=== PATIENT | male | born 1955 | race African-American/Black ===

== ENCOUNTER 2016-10-06 09:48 | Outpatient (CLI) | payer BC, MEDICAID | END 2016-10-06 09:49 | disposition home or self-care (01) | DX: E66.9 Obesity, unspecified (principal); I10 Essential (primary) hypertension ==

== ENCOUNTER 2019-07-01 22:53 | Inpatient (IN) | payer MEDICAID ==
--- NOTE | 2019-07-01 23:13 | ED Physician Documentation ---
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 HPI is from neighbor, as patient has significant expressive aphasia and thus cannot contribute to HPI/ROS. Neighbor says that 30-40 minutes ago, patient knocked on her door and it was obvious that he was having great difficulty verbalizing; his words were mostly gibberish, and he was unable to complete any coherent sentences. Neighbor does not know his medical history, does not know if he takes any medications. She says that patient is normally awake, alert, oriented, conversant, and friendly. She says that the last time she saw him was Sunday (2 days ago, at which time he was at baseline). Unfortunately, there is no one else at the time of ED presentation who can give more information regarding last known "normal". Review of Systems Unable to obtain: Other (severe expressive aphasia) PD PAST MEDICAL HISTORY - Past Medical History Other Past Medical History: unknown - Past Surgical History Other past surgical history: unknown - Allergies Allergies/Adverse Reactions: Allergies Allergy/AdvReac Type Severity Reaction Status Date / Time No Known Drug Allergies Allergy Verified 07/02/19 01:43 - Living Situation Living Arrangement: reports: At home PD ED PE NORMAL - Vitals Vital signs reviewed: Yes - General General: No acute distress, Well developed/nourished - HEENT HEENT: PERRL, EOMI - Neck Neck: Supple, no meningeal sign - Cardiac Cardiac: No murmur - Respiratory Respiratory: No respiratory distress, Clear bilaterally - Abdomen Abdomen: Soft, Non distended - Derm Derm: Normal color, Warm and dry - Extremities Extremities: No edema - Neuro Neuro: No motor deficit Eye Opening: Spontaneous Motor: Obeys Commands Verbal: Incomprehensible GCS Score: 12 PD ED PE EXPANDED - General General: Alert, No acute distress, Well developed/nourished - Cardiac Cardiac: Irregularly irregular - Neuro Neuro: Aphasia (expressive aphasia; patient able to give occasional simple one- word answers, but mostly appears to be struggling to get words out. ) Results - Vitals Vitals: Vital Signs - 24 hr 07/01/19 07/01/19 07/01/19 23:05 23:31 23:41 Heart Rate 107 H 88 119 H Respiratory 18 18 24 Rate Blood Pressure 181/84 H 178/82 H 181/84 H O2 Saturation 100 16 L 100 07/02/19 07/02/19 00:00 00:30 Heart Rate 104 H 110 H Respiratory 24 22 Rate Blood Pressure O2 Saturation 99 100 Oxygen O2 Source Room air - EKG (time done) No standard instances Rate: Rate (enter#) (111), Tachy Rhythm: Atrial fibrillation Cooks: Normal Ischemia: Normal ST segments - Labs Labs: Laboratory Tests 07/01/19 07/01/19 07/01/19 23:08 23:35 23:35 WBC 11.6 H RBC 4.84 Hgb 11.0 L Hct 35.7 L MCV 73.8 L MCH 22.7 L MCHC 30.8 L RDW 17.4 H Plt Count 302 MPV 9.8 Neut # (Auto) 8.8 H Lymph # (Auto) 1.9 [place] # (Auto) 0.7 Eos # (Auto) 0.1 Baso # (Auto) 0.1 Absolute Nucleated RBC 0.00 Nucleated RBC % 0.0 PT 12.4 INR 1.1 APTT 33.1 Sodium 134 L Potassium 3.6 Chloride 105 Carbon Dioxide 19 L Anion Gap 10.0 BUN 15 Creatinine 1.0 Estimated GFR (MDRD) 92 Glucose 102 H Calcium 8.6 Total Bilirubin 0.5 AST 23 ALT 14 Alkaline Phosphatase 48 Total Protein 7.6 Albumin 3.9 Globulin 3.7 Albumin/Globulin Ratio 1.1 Lipase 34 - Rads (name of study) CT head Radiology: Prelim report reviewed, See rad report CTA head Radiology: Prelim report reviewed, See rad report CTA neck Radiology: Prelim report reviewed, See rad report PD MEDICAL DECISION MAKING - ED course Complexity details: reviewed results, re-evaluated patient, considered differential, d/w patient ED course: NAD. He seems to be understanding questions asked, and he follows commands quickly and appropriately. He repeatedly becomes frustrated in trying to speak intelligibly. Unfortunately, he is unable to communicate time of symptom onset, and only resource in this regard in the ED is neighbor who last saw him 2 days ago. ED RN tried to contact relative listed on patient's records as point of contact, but was unable to get a hold of this person. Departure - Departure Disposition: [facility] DC/Xfer Clinical Impression: Cerebrovascular accident (CVA) Qualifiers: CVA mechanism: unspecified Qualified Code(s): I63.9 - Cerebral infarction, unspecified Condition: Stable Discharge Date/Time: 07/02/19 01:33
[2019-07-01 23:29] LABS: BASOPHILS # (AUTO) 0.1 10^3/uL (0.0-0.1); BASOPHILS % (AUTO) 0.4 %; EOSINOPHILS # (AUTO) 0.1 10^3/uL (0.0-0.7); EOSINOPHILS % (AUTO) 0.8 %; LYMPHOCYTES # (AUTO) 1.9 10^3/uL (1.5-3.5); LYMPHOCYTES % (AUTO) 16.5 %; MEAN CORPUSCULAR HEMOGLOBIN 22.7 pg (27.0-31.0); MEAN CORPUSCULAR HGB CONC 30.8 g/dL (32.0-36.0); MEAN CORPUSCULAR VOLUME 73.8 fL (80.0-94.0); MEAN PLATELET VOLUME 9.8 fL (7.4-11.4); MONOCYTES # (AUTO) 0.7 10^3/uL (0.0-1.0); MONOCYTES % (AUTO) 5.6 %; NEUTROPHILS # (AUTO) 8.8 10^3/uL (1.5-6.6); NEUTROPHILS % (AUTO) 76.2 %; PLT - PLATELET COUNT 302 10^3/uL (130-450); RED BLOOD COUNT 4.84 10^6/uL (4.70-6.10); RED CELL DISTRIBUTION WIDTH 17.4 % (12.0-15.0); WHITE BLOOD COUNT 11.6 x10^3/uL (4.8-10.8)
--- NOTE | 2019-07-01 23:33 | CT Report ---
Reason: Neuro deficit, acute, stroke suspected Procedure Date: 07/01/2019 Accession Number: [id number] / [id number] Procedure: CT - Head W/O Stroke Protocol CPT Code: Final Report FULL RESULT: EXAM: CT HEAD WITHOUT CONTRAST EXAM DATE: 07/01/2019 11:22 PM CLINICAL HISTORY: Expressive aphasia. COMPARISON: None. TECHNIQUE: Multiaxial CT images were obtained from the foramen magnum to the vertex. Reformats: Sagittal and coronal. IV contrast: None. In accordance with CT protocol optimization, one or more of the following dose reduction techniques were utilized for this exam: automated exposure control, adjustment of mA and/or KV based on patient size, or use of iterative reconstructive technique. FINDINGS: Parenchyma: No intraparenchymal hemorrhage. No evidence of mass, midline shift, or CT findings of acute infarction. Asher-white differentiation is distinct. Mild diffuse chronic microangiopathic white matter changes are evident. Extraaxial Spaces: Normal for age. No subdural or epidural collections identified. Ventricles: The ventricles and cortical sulci are mildly enlarged, consistent with age-related tissue loss. Sinuses and Orbits: Imaged paranasal sinuses, orbits, and mastoids show no significant abnormality. Bones: No evidence of fracture or calvarial defect. Other: Mild intracranial atherosclerosis is present. IMPRESSION: 1. No acute intracranial process. 2. ASPECTS score is 10 on the right and 10 on the left. RADIA The critical test notification system was initiated by Dr. Charla Link at 11:30 PM on 07/01/2019. The above critical test findings were discussed with Dr. Stafford by Dr. Charla Link at 11:34 PM on 07/01/2019.
[2019-07-01 23:45] LABS: INR 1.1 (0.8-1.2); PT - PROTHROMBIN TIME 12.4 secs (9.9-12.6)
--- NOTE | 2019-07-01 23:49 | XRAY Report ---
Reason: chest pain Procedure Date: 07/01/2019 Accession Number: [id number] / [id number] Procedure: XR - Chest 1 View X-Ray CPT Code: 34546 Final Report FULL RESULT: EXAM: CHEST RADIOGRAPHY EXAM DATE: 07/01/2019 11:39 PM. CLINICAL HISTORY: Chest pain. COMPARISON: None. TECHNIQUE: 1 view. FINDINGS: Lungs/Pleura: Elevated left hemidiaphragm. No infiltrates. No pleural effusions or pneumothorax. Mediastinum: Mild cardiomegaly. No significant pulmonary vascular congestion. Osseous structures: No significant focal osseous lesions. IMPRESSION: 1. No acute cardiopulmonary process identified radiographically. 2. Mild cardiomegaly. RADIA
[2019-07-01 23:52] LABS: ALBUMIN 3.9 g/dL (3.2-5.5); ALBUMIN/GLOBULIN RATIO 1.1 (1.0-2.2); BILIRUBIN,TOTAL 0.5 mg/dL (0.2-1.0); CALCIUM 8.6 mg/dL (8.5-10.3); TOTAL PROTEIN 7.6 g/dL (6.7-8.2)
[2019-07-01 23:54] LABS: PARTIAL THROMBOPLASTIN TIME 33.1 secs (24.9-33.3)
[2019-07-02] MEDS ORDERED: SODIUM CHLORIDE FLUSH 0.9% 10 ML SYRINGE IVP PRN (00:47)
[2019-07-02] MEDS ORDERED: IOVERSOL 320 100 ML VIAL IVP ONE ×2 (00:49→01:35)
[2019-07-02] MEDS ORDERED: SODIUM CHLORIDE 0.9% 1,000 ML IV SCH ×2 (01:00→09:59)
--- NOTE | 2019-07-02 01:04 | HISTORY & PHYSICAL EXAMINATION ---
Chief Complaint - Chief Complaint Chief Complaint: encephalopathy, expressive aphasia History of Present Illness - Admitted From Admitted From:: [facility] - History Obtained From Records Reviewed: yes History obtained from: patient and ED physician Exam Limitations: expressive aphasia - History of Present Illness HPI Comment/Other: Patient is a 63 y/o male who was driven to the ED by his neighbor after he knocked on her door. He knocked on her door because he was experiencing numbness in his fingers. It is reported that the neighbor noticed that he was confused or not his usual self. In the ED he has significant expressive aphasia. He fully understand the questions asked but has difficulty finding the words. The words do not come out right when spoken. He is somewhat frustrated by this. His neighbor reports last seeing him normal 2 days ago. However he reports he was normal at 4:30pm when he finished work. There was a co-worker with him who cannot be contacted at this time. 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 He tries to express that he is otherwise healthy. He ran a 0.5K marathon. He denies chest pain, dyspnea, abdominal pain, nausea or vomiting. His only neurological deficit is expressive aphasia. As a result of his persistent symptoms, he is being admitted for further work up. History - Past Medical History Other Past Medical History: Patient denies any medical history or taking any medication - Past Surgical History Other past surgical history: He denies any surgical history - Family & Social History Family History Comment/Other: The details of this could not be obtained because of his expressive aphasia. Social History Notes: He does not smoke drink or use illicit drugs - POLST Patient has POLST: No POLST Status: Full Code Meds/Allgy - Allergies Allergies/Adverse Reactions: Allergies Allergy/AdvReac Type Severity Reaction Status Date / Time No Known Drug Allergies Allergy Verified 07/02/19 01:43 Review of Systems - Constitutional Constitutional: denies: Fatigue, Fever - Eyes Eyes: denies: Pain, Blurred vision, Vision loss, Dipolpia - Ears, Nose & Throat Ears, Nose & Throat: denies: Tinnitus, Vertigo - Cardiovascular Cariovascular: reports: Irregular heart rate. denies: Chest pain, Lightheadedness, Syncope - Respiratory Respiratory: denies: Sputum production, Wheezing, SOB at rest, SOB with exertion - Gastrointestinal Gastrointestinal: denies: Abdominal pain, Abdominal distention, Constipation, Diarrhea, Nausea, Vomiting, Reflux/heartburn - Genitourinary Genitourinary: denies: Dysuria, Frequency, Urgency, Hematuria, Incontinence, Flank pain, Nocturia - Musculoskeletal Musculoskeletal: denies: Muscle pain, Back pain, Muscle aches, Stiffness, Limited range of motion, Muscle weakness, Gout, Joint pain - Integumentary Integumentary: denies: Rash, Pruritis, Lesions, Dryness - Neurological Neurological: reports: Other (Expressive aphasia). denies: General weakness, Focal weakness, Headache, Dizziness - Psychiatric Psychiatric: denies: Depression, Anxiety - Endocrine Endocrine: denies: Polyuria, Polydypsia - Hematologic/Lymphatic Hematologic/Lymphatic: denies: Anemia, Bruising, Petechiae Prior Level of Functionality: He is independent of activities of daily living Exam - Vital Signs Vital Signs: Vital Signs x48h Pulse Resp BP Pulse Ox 07/01/19 23:31 88 18 178/82 H 16 L 07/01/19 23:05 107 H 18 181/84 H 100 - Physical Exam General Appearance: positive: Alert. negative: No acute distress Eyes Bilateral: positive: Normal inspection, PERRL, EOMI ENT: positive: ENT inspection nml, No signs of dehydration Neck: positive: Nml inspection, No JVD, Trachea midline Respiratory: positive: Chest non-tender, No respiratory distress, Breath sounds nml. negative: Wheezes, Rales, Rhonchi Cardiovascular: positive: Regular rate & rhythm, Irregularly irregular Abdomen: positive: Non-tender, No organomegaly, Nml bowel sounds, No distention. negative: Guarding, Rebound Skin: positive: Color nml, No rash, Warm, Dry Extremities: positive: Non-tender, Full ROM, Nml appearance, No pedal edema Neurologic/Psychiatric: positive: Oriented x3, Motor nml, Mood/affect nml, Other (Expressive Aphasia). negative: Facial droop Conclusion/Plan - Problem List (1) Cerebrovascular accident (CVA) Conclusion/Plan: Expressive aphasia persist CT head without contrast was negative MRI brain w/o contrast ordered, 2D echo ordered Lipid panel, HgA1c, Neuro checks qshift Atorvastatin, aspirin initiated Qualifiers: CVA mechanism: unspecified Qualified Code(s): I63.9 - Cerebral infarction, unspecified (2) Atrial fibrillation Conclusion/Plan: Unclear if chronic or paroxysmal or new onset Patient does not take any medication Could be potential cause of CVA Will use a beta emily for rate control if needed Will start eliquis with the next 24 hours On telemetry (3) Hypertension Conclusion/Plan: Not on any home medication Metoprolol ordered prn Will start Toprolol XL in the AM - Lab Results Fish Bones: 07/02/19 06:10 07/02/19 06:10 Core Measures - Anticipated LOS I expect patient to be DC'd or transferred within 96 hours.: Yes - DVT/VTE - Prophylaxis VTE/DVT Device ordered at admit?: Yes VTE/DVT Prophylaxis med ordered at admit?: Yes
[2019-07-02] MEDS: SODIUM CHLORIDE FLUSH 0.9% 10 ML SYRINGE IVP SCH ×3 (02:01→16:45)
--- NOTE | 2019-07-02 02:09 | CT Report ---
Reason: focal neurologic deficits Procedure Date: 07/02/2019 Accession Number: [id number] / [id number] Procedure: CT - ANGIO NECK W CPT Code: Final Report FULL RESULT: EXAM: CT ANGIOGRAM HEAD AND NECK. CT SCAN HEAD WITHOUT AND WITH CONTRAST. EXAM DATE: 07/02/2019 01:37 AM. CLINICAL HISTORY: Focal neuro deficits. Expressive aphasia COMPARISON: NECK ANGIO 07/02/2019 1:18 AM HEAD W/O STROKE PROTOCOL 07/01/2019 11:22 PM. TECHNIQUE: Routine axial helical CTA imaging was performed from the aortic arch through the [place] of [place]. Routine axial CT imaging of the head was performed prior to and following contrast administration. Reconstructions: Routine multiplanar 3D MIP reconstructions. IV contrast: OPTIRAY 320, 80 mL. NASCET Criteria are used for stenosis measurements. In accordance with CT protocol optimization, one or more of the following dose reduction techniques were utilized for this exam: automated exposure control, adjustment of mA and/or KV based on patient size, or use of iterative reconstructive technique. FINDINGS: CT SCAN HEAD: Parenchyma: No intraparenchymal hemorrhage. No evidence of mass, midline shift, or CT findings of acute infarction. Asher-white differentiation is distinct. Mild periventricular hypodensity is noted, nonspecific but most likely due to chronic microvascular ischemia. There is no pathologic enhancement. Extra-axial Spaces: Normal for age. No subdural or epidural collections identified. Ventricles: Normal in size and position. Sinuses and Orbits: Imaged paranasal sinuses, orbits, and mastoids show no significant abnormality. Bones: No evidence of fracture or calvarial defect. CT ANGIOGRAM EXTRACRANIAL CIRCULATION: The visualized arch is unremarkable. Great vessels are patent and unremarkable. Right Carotid: The common carotid, internal carotid, and external carotid arteries are widely patent. Minimal atherosclerotic plaque is visualized at the carotid bifurcation and proximal ICA. There is no hemodynamically significant carotid artery stenosis by NASCET criteria. There is no evidence of dissection. Left Carotid: The common carotid, internal carotid, and external carotid arteries are widely patent. Minimal atherosclerotic plaque is visualized at the carotid bifurcation and proximal ICA. There is no hemodynamically significant carotid artery stenosis by NASCET criteria. There is no evidence of dissection. Vertebrals: The proximal right vertebral artery is not adequately visualized due to streak artifact from dense contrast in adjacent veins. The imaged extracranial portions appear patent without evidence of significant stenosis or dissection. The left vertebral artery is slightly dominant and appears widely patent. CT ANGIOGRAM INTRACRANIAL CIRCULATION: Vascular calcification is visualized in the cavernous segments of the bilateral ICAs. The internal carotid, vertebral and basilar arteries are widely patent. The anterior, middle and posterior cerebral arteries are normal in caliber. There is no high grade stenosis, thrombosis or aneurysm in the intracranial vasculature. The dural venous sinuses are patent. Other: The visualized bones, soft tissues, and lung apices are unremarkable. IMPRESSION: CT SCAN HEAD: 1. No significant interval change. No evidence of acute infarct or hemorrhage. 2. No pathologic enhancement. 3. Mild white matter changes typical of chronic microvascular ischemia. CT ANGIOGRAM NECK: 1. No evidence of hemodynamically significant carotid or vertebral artery stenosis. Of note, the proximal right vertebral artery is not adequately visualized due to streak artifact from dense contrast in adjacent veins. Mild atherosclerotic change noted at the carotid bifurcations. 2. No evidence of carotid or vertebral artery dissection. CT ANGIOGRAM HEAD: 1. No evidence of central large vessel occlusion. 2. No high-grade stenosis, aneurysm or dissection in the intracranial vasculature. RADIA
[2019-07-02] MEDS ORDERED: ASPIRIN 325 MG TABLET PO STA (02:23)
[2019-07-02] MEDS ORDERED: METOPROLOL 5 MG/5 ML VIAL IVP PRN (02:27)
[2019-07-02] MEDS: ATORVASTATIN 40 MG TABLET PO SCH ×2 (02:45→20:51)
[2019-07-02 06:18] LABS: BASOPHILS % (AUTO) 0.4 %; EOSINOPHILS # (AUTO) 0.1 10^3/uL (0.0-0.7); EOSINOPHILS % (AUTO) 1.5 %; HGB - HEMOGLOBIN 9.7 g/dL (14.0-18.0); LYMPHOCYTES # (AUTO) 1.7 10^3/uL (1.5-3.5); LYMPHOCYTES % (AUTO) 21.8 %; MEAN CORPUSCULAR HEMOGLOBIN 22.6 pg (27.0-31.0); MEAN CORPUSCULAR HGB CONC 30.5 g/dL (32.0-36.0); MEAN CORPUSCULAR VOLUME 74.1 fL (80.0-94.0); MEAN PLATELET VOLUME 8.8 fL (7.4-11.4); MONOCYTES # (AUTO) 0.5 10^3/uL (0.0-1.0); MONOCYTES % (AUTO) 6.5 %; NEUTROPHILS # (AUTO) 5.5 10^3/uL (1.5-6.6); NEUTROPHILS % (AUTO) 69.5 %; PLT - PLATELET COUNT 234 10^3/uL (130-450); RED BLOOD COUNT 4.29 10^6/uL (4.70-6.10); RED CELL DISTRIBUTION WIDTH 17.3 % (12.0-15.0)
[2019-07-02 06:28] LABS: CALCIUM 8.3 mg/dL (8.5-10.3); CREATININE 0.8 mg/dL (0.6-1.2)
[2019-07-02 06:34] LABS: HB2 TOTAL 9.3 g/dL; HEMOGLOBIN A1C 0.39 g/dL
[2019-07-02 06:42] LABS: CHOL/HDL RATIO 2.2 (<5.0); CHOLESTEROL 132 mg/dL; HDL CHOLESTEROL 60 mg/dL
[2019-07-02] MEDS ORDERED: METOPROLOL SUCCINATE 50 MG TABLET PO SCH (09:00)
--- NOTE | 2019-07-02 11:46 | MRI Report ---
Reason: Expressive aphasia. AMS. CVA work up Procedure Date: 07/02/2019 Accession Number: [id number] / [id number] Procedure: MRI - Brain W/O CPT Code: Addended Final Report FULL RESULT: MRI BRAIN WITHOUT CONTRAST INDICATION: 63-year-old male with expressive aphasia. Altered mental status (confusion). Concern for CVA. TECHNIQUE: 1. Sagittal T1. 2. Coronal fat-saturated T2. 3. Axial T1 3D MP RAGE, FLAIR, T2, T2*GRE and DWI. COMPARISON: Head CT 07/01/2019. FINDINGS: Again demonstrated is mild third/lateral ventriculomegaly, unchanged. Again demonstrated is an old lacunar infarction adjacent to the posterior aspect of the head of the left caudate nucleus, in the vicinity of the genu of the left internal capsule. A hemosiderin lined cleft is demonstrated in the lateral right putamen, consistent with the sequela of remote hemorrhage. There is multifocal white matter disease in the supratentorial brain, likely representing chronic microangiopathy. There appear to be flow voids for the main intracranial arteries. A geographic area of FLAIR hyperintensity and diffusion restriction is identified in the cortex of the left middle frontal gyrus extending over a distance of roughly 1.4 x 0.7 cm, consistent with acute infarction. In addition, 2 small, adjacent foci of diffusion restriction are demonstrated in the distribution of the centrum semiovale of the posterior left frontal lobe (image 136 of series 505) consistent with acute infarction. Total external dimensions of this focus of infarction in the deep white matter is roughly 1.3 x 0.5 cm. The deep white matter infarction demonstrates minimal if any FLAIR hyperintensity suggesting that it may be of more recent, hyperacute nature. No other abnormal diffusion restriction is demonstrated. There is no evidence of hemorrhage complicating any of the left MCA territory infarctions on the T2*GRE sequence. Limited assessment of the orbits reveals no gross pathology. The paranasal sinuses are essentially clear. No significant mastoid or middle ear effusion is demonstrated. IMPRESSION: 1. Small foci of diffusion restriction are identified in the left frontal lobe, in the distribution of the cortex for the left middle frontal gyrus and in the deep white matter of the posterior left frontal lobe. The findings are consistent with acute, nonhemorrhagic infarctions. 2. No significant associated mass effect. 3. There appear to be flow voids for the main intracranial arteries. In particular of the left ICA and M1 segment for the left MCA appear to be patent. 4. An old lacunar infarction is demonstrated in the left ganglionic region as described. 5. A thin, hemosiderin lined cleft is identified in the lateral aspect of the right putamen, consistent with the sequela of remote basal ganglia hemorrhage. There are 2 tiny foci of magnetic susceptibility artifact in the right globus pallidus, likely representing hemosiderin from prior micro hemorrhages. No other acute or chronic hemorrhage is seen on the T2*GRE sequence. The call report notification system was initiated by Dr. Manny Guzmán at 10:49 AM on 07/02/2019. The above call report findings were discussed with Dr. Marcus Reyez by Dr. Manny Guzmán at 11:46 AM on 07/02/2019. ADDENDUM: 07/04/19 14:13 Corrected call report documentation The call report notification system was initiated by Dr. Manny Guzmán at 10:49 AM on 07/02/2019. The above call report findings were discussed with Dr. Cary Reyez by Dr. Manny Guzmán at 11:46 AM on 07/02/2019.
--- NOTE | 2019-07-02 15:32 | PHARMACY PROGRESS NOTE ---
- Best Possible Medication History Admit Date and Time: 07/02/19 0051 Processed by: Pharmacy Medication History completed: Yes Patient Interview: Completed (Per patient, on no medications at home except aspirin and occasional ibuprofen) Secondary Source(s): Physician records (Contacted provider's office, per medical records (Melyssa) patient not seen since 2016, only medication on faxed medication report: ibuprofen), Insurance records (No result found (no fill history populated) after running report) As the person ultimately responsible for medication therapy, providers are able to order a medication from an existing home medication list in [facility] via the "Reconcile Routine" prior to Confirmation of that medication by technical support agent. Such practice is discouraged except when the physician, in their clinical judgment, deems that a medical need exists for a medication without regard to previous use.
[2019-07-03 04:57] LABS: BASOPHILS % (AUTO) 0.7 %; EOSINOPHILS # (AUTO) 0.3 10^3/uL (0.0-0.7); EOSINOPHILS % (AUTO) 4.4 %; HGB - HEMOGLOBIN 9.6 g/dL (14.0-18.0); LYMPHOCYTES % (AUTO) 35.3 %; MEAN CORPUSCULAR HEMOGLOBIN 22.5 pg (27.0-31.0); MEAN CORPUSCULAR HGB CONC 29.5 g/dL (32.0-36.0); MEAN CORPUSCULAR VOLUME 76.3 fL (80.0-94.0); MEAN PLATELET VOLUME 9.4 fL (7.4-11.4); MONOCYTES # (AUTO) 0.4 10^3/uL (0.0-1.0); MONOCYTES % (AUTO) 7.7 %; NEUTROPHILS # (AUTO) 2.9 10^3/uL (1.5-6.6); NEUTROPHILS % (AUTO) 51.5 %; PLT - PLATELET COUNT 239 10^3/uL (130-450); RED BLOOD COUNT 4.26 10^6/uL (4.70-6.10); RED CELL DISTRIBUTION WIDTH 17.8 % (12.0-15.0); WHITE BLOOD COUNT 5.7 x10^3/uL (4.8-10.8)
[2019-07-03 05:07] LABS: CALCIUM 8.3 mg/dL (8.5-10.3); CREATININE 0.7 mg/dL (0.6-1.2)
[2019-07-03 08:00] VITALS: BP 140/80
[2019-07-03] MEDS: SODIUM CHLORIDE FLUSH 0.9% 10 ML SYRINGE IVP SCH (08:42)
[2019-07-03] MEDS ORDERED: ASPIRIN EC 81 MG TABLET PO SCH (09:00)
[2019-07-03] MEDS ORDERED: METOPROLOL SUCCINATE 25 MG TABLET PO SCH (09:00)
[2019-07-03] MEDS ORDERED: METOPROLOL SUCCINATE 50 MG TABLET PO SCH (09:00)
--- NOTE | 2019-07-03 10:42 | Discharge Plan ---
Discharge Plan Problem Reviewed?: Yes Disposition: Home, Self Care Condition: Stable Prescriptions: Aspirin 325 mg PO DAILY #30 tablet Metoprolol Succinate [Toprol Xl] 12.5 mg PO DAILY #15 tablet Diet: Low Sodium (and a Low fat diet) Activity Restrictions: Additional Comments (You should check with your PCP or neurologist to be cleared for running marathons.) Shower Restrictions: No Driving Restrictions: No Instruction Topics: Dysarthria, Stroke Sx, Stroke Taking Meds Health Concerns: You were admitted with speech problems and diagnosed with a stroke. The brain MRI does confirm the stroke. There have been prior strokes and even prior bleeding in the brain noted. You need a Neurologist for further follow-up regarding the brain MRI findings. You are being started on an aspirin a day for stroke treatment. A Neurologist needs to decide if you should be switched from a daily aspirin to a blood thinner after about 2 weeks. Outpatient speech therapy can be ordered by your (new) PCP if needed. At admission you were also diagnosed with Atrial fibrillation (Afib). You therefore also need a Internet Marketing Consultant for further work-up of Afib, including a stress test. Please do light activity, and absolutely no exercising, until you have the stress test and are cleared to exercise. Your Internet Marketing Consultant will need to clear you to resume jogging or running marathons. Plan of Treatment: As above. Care Goals: Improvement in symptoms and stabilization are the goals. Assessment: Patient understands and is agreeable with the plan. Additional Instructions or Follow Up instructions: If you have new or worsening symptoms, contact your PCP or your Neurologist for guidance or come to the ER. Follow-Up Care: Outpatient Rehab - [facility] No Smoking: If you smoke, Please STOP! Call for help. Follow-up with: ROLAND KEITH MD [Provider Admit Priv/Credential] -
--- NOTE | 2019-07-03 11:05 | DISCHARGE SUMMARY ---
Discharge Summary Admit Date: 07/02/19 Discharge Date: 07/03/19 Discharging Provider: Dr Cary Reyez Primary Care Provider: Dr Radames Viramontes Code Status: Attempt Resuscitation Condition at Discharge: Stable Discharge Disposition: 01 Home, Self Care - DIAGNOSES Admission Diagnoses: (1) Cerebrovascular accident (CVA) (2) Atrial fibrillation, new onset (3) Hypertension Discharge Diagnoses with Status of Each Condition: See below - HPI History of Present Illness: From the admission H&P of Dr Graeme Cerda: Patient is a 63 y/o male who was driven to the ED by his neighbor after he knocked on her door because he was experiencing numbness in his fingers and could not speak. It is reported that the neighbor noticed that he was confused or not his usual self. In the ED he has significant expressive aphasia. He fully understand the questions asked but has difficulty finding the words. The words do not come out right when spoken and he is somewhat frustrated by this. His neighbor reports last seeing him normal 2 days ago. However he reports he was normal at 4:30pm when he finished work. There was a co-worker with him who cannot be contacted at this time. 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 Thus, his l ast known well was 48 hours before and he was not a code stroke candidate. He tries to express that he is otherwise healthy; he ran a 0.5K marathon. He denies chest pain, dyspnea, abdominal pain, nausea or vomiting. His only neurological deficit is expressive aphasia. The admission EKG was significant for Afib, which then converted to sinus rhythm on telemetry. As a result of his persistent symptoms, he is being admitted for further work up of a stroke and new onset of paroxysmal Afib. - HOSPITAL COURSE Hospital Course: 1) Acute stroke He took an aspirin on his own and he was started on a daily aspirin here. The head CT done in the ER did not show a stroke. The following day he had a brain MRI which did confirm a stroke. There have been prior strokes as well, and hemosiderin from prior bleeding in the brain was noted as well. He was seen by PT and OT and needed no rehab. He was seen by Speech Therapy who indicated that his speech would improve or he could attend outpatient speech therapy if refferred by his provider. By the second day there was marked improvement in word-finding and speech quality. 2) New onset of Afib, paroxysmal He was started on a low dose of B-emily, for rate control if he has recurrent Afib. He was not started on anticoagulation since the recommendations are to await 2 weeks to assure the risk for hemorrhagic conversion of an acute CVA are low. In his case, there has been a prior brain bleed, since hemosiderin is seen(possibly from his HTN history), and he needs a Neurology appointment for determination if anticoagulation would be advised for him or not. He also needs a Per Diem Clerk for further work-up of new onset Afib, including a stress test. He was advised do light activity, and absolutely no exercising, until the stress test results and getting clearance to exercise. 3) HTN The patient reported a prior history of HTN, then his BP med was able to be stopped when he lost weight. His BP was elevated while here (170/90) and some permissive HTN was allowed. He was discharged on the low-dose B-emily only. 4) Morbid Obesity He needs further weight loss as the current BMI is 43. - ALLERGIES Allergies/Adverse Reactions: Allergies Allergy/AdvReac Type Severity Reaction Status Date / Time No Known Drug Allergies Allergy Verified 07/02/19 01:43 - MEDICATIONS Home Medications: Ambulatory Orders Medication Instructions Recorded Confirmed Aspirin 325 mg PO DAILY #30 tablet 07/03/19 Metoprolol Succinate [Toprol Xl] 12.5 mg PO DAILY #15 tablet 07/03/19 - PHYSICAL EXAM AT DISCHARGE General Appearance: positive: No acute distress, Alert Eyes Bilateral: positive: Normal inspection, EOMI ENT: positive: ENT inspection nml, No signs of dehydration Neck: positive: Nml inspection, No JVD Respiratory: positive: No respiratory distress, Breath sounds nml Cardiovascular: positive: Regular rate & rhythm, No murmur Abdomen: positive: Non-tender, Other (Obese with pannus) Skin: positive: Color nml Extremities: positive: No pedal edema Neurologic/Psychiatric: positive: Oriented x3, Other (Non-focal) - LABS Result Diagrams: 07/03/19 04:30 07/03/19 04:30 - DIAGNOSTIC IMAGING Diagnostic Imaging Results: Final report reviewed - FOLLOW UP Follow Up: His previous PCP Dr Stack has left and therefore, while here, our food and drug inspector made him an appointment to the same clinic, to see Dr Radames Viramontes on 07/09/19. - TIME SPENT Time Spent in Discharge (Minutes): 45
== END 2019-07-03 11:46 | disposition home or self-care (01) | DRG 65 ==
LOC: ED 22:53 → MS2 07-02 00:51
PROVIDERS: ADMIT Internal Medicine; ATTEND Internal Medicine
DX: I63.9 Cerebral infarction, unspecified (principal); Z68.41 Body mass index [BMI] 40.0-44.9, adult; I10 Essential (primary) hypertension; R47.01 Aphasia; R20.0 Anesthesia of skin; I48.0 Paroxysmal atrial fibrillation; E66.01 Morbid (severe) obesity due to excess calories; R29.705 NIHSS score 5; R40.2422 Glasgow coma scale score 9-12, at arrival to emergency department; Z86.79 Personal history of other diseases of the circulatory system
CPT/HCPCS: 36415; 70450; 70496; 70498; 70551; 71045; 80048; 80053; 80061; 82272; 83036; 83690; 84443; 84484; 85025; 85610; 85730; 92610; 93005; 93306; 93308; 97161; 99285; A9270; Q9967; 83721

== ENCOUNTER 2019-08-06 08:58 | Outpatient (CLI) | payer MEDICAID ==
[2019-08-06] MEDS ORDERED: REGADENOSON 0.4 MG/5 ML SYRINGE IVP ONE ×2 (10:17→12:10)
[2019-08-06] MEDS ORDERED: AMINOPHYLLINE 250 MG/10 ML VIAL ONE (10:18)
--- NOTE | 2019-08-06 11:11 | CARDIAC PROCEDURE NOTE ---
DATE OF SERVICE: 08/06/2019 Physician: Cary Reyez MD, [facility] INDICATION FOR STUDY: Atrial fibrillation. CARDIAC RISK FACTORS 1. Male gender. 2. Hypertension. 3. Obesity. DESCRIPTION OF PROCEDURE: After signing informed consent, patient underwent a Lexiscan pharmaceutical stress test with nuclear myocardial perfusion imaging. RESTING HEART RATE: 60. PEAK HEART RATE: 88. RESTING BLOOD PRESSURE: 138/81. PEAK BLOOD PRESSURE: 117/82. Lexiscan was infused per protocol. The patient had nausea and abdominal "gas" but no chest pain or shortness of breath. Oxygen saturation remained 97-98% on room air throughout the test. RESTING EKG: Atrial fib-flutter, early repolarization. EKG AT PEAK: No new ST segment or T-wave abnormalities. SUMMARY 1. Abnormal EKG showing atrial fib-flutter. 2. No new ST segment or T wave changes by EKG criteria to suggest ischemia on this pharmaceutical stress test. 3. Nuclear images reported separately. 4. This patient's cardiac risk based on all the above: Low-Moderate. cc: Radames Viramontes MD TD: 08/06/2019 11:02 [facility]
--- NOTE | 2019-08-07 14:01 | Nuclear Medicine Report ---
Reason: CVA, AFIB, OBESITY Procedure Date: 08/06/2019 Accession Number: [id number] / [id number] Procedure: NM - Myocardial Perfusion STR/RST CPT Code: Final Report FULL RESULT: EXAM: SINGLE-ISOTOPE PHARMACOLOGICAL STRESS TEST WITH REGADENOSON. SINGLE-ISOTOPE AND TWO-DAY REST/STRESS MYOCARDIAL PERFUSION SCANS WITH TOMOGRAPHIC IMAGING, QUANTITATIVE ANALYSIS, WALL MOTION ANALYSIS AND CALCULATION OF EJECTION FRACTION. EXAM DATE: 08/06/2019 02:13 PM. CLINICAL HISTORY: CVA, AFIB, obesity. COMPARISON: None available. TECHNIQUE: A pharmacological stress was performed with the infusion of 0.4 mg regadenoson per protocol. According to protocol, 25 mCi of Tc-99m sestamibi was injected for stress myocardial perfusion scan. Motion correction was applied when appropriate. The following day after the intravenous administration of 25 mCi of Tc-99m sestamibi, a rest myocardial perfusion scan was done with tomography. Motion correction was applied when appropriate. Gated tomographic images were obtained for wall motion analysis and computation of left ventricular ejection fraction. FINDINGS: There is a small fixed defect in the inferior apex. There is a mild inferior wall perfusion defect which is larger and more severe on the rest images compared to the stress images. No significant convincing reversible perfusion defects. Wall motion analysis demonstrates mild septal hypokinesis. The left ventricular end-diastolic volume is 160 cc. The left ventricular end-systolic volume is 75 cc. The left ventricular ejection fraction is calculated to be 53%. IMPRESSION: 1. Small fixed defect in the inferior apex. Suspected inferior wall attenuation artifact. No convincing significant reversible perfusion defects. 2. Left ventricular ejection fraction of 53%. 3. Mild septal hypokinesis. 4. End diastolic volume 160 mL. Please correlate findings with stress ECG tracings and procedure notes. RADIA
== END 2019-08-06 08:59 | disposition home or self-care (01) ==
LOC: DI 08:58
PROVIDERS: ATTEND Family Medicine
DX: I48.91 Unspecified atrial fibrillation (principal); R94.31 Abnormal electrocardiogram [ECG] [EKG]; I48.92 Unspecified atrial flutter; I10 Essential (primary) hypertension; E66.9 Obesity, unspecified
CPT/HCPCS: 78452; 93017; A9500; J2785

== ENCOUNTER 2019-08-28 05:26 | Outpatient (CLI) | payer MEDICAID | END 2019-08-28 05:27 | disposition EMS.NT | LOC: EMS 05:26 | PROVIDERS: ATTEND Surgery | DX: Z03.89 Encounter for observation for other suspected diseases and conditions ruled out (principal) ==

== ENCOUNTER 2020-05-19 13:25 | Outpatient (CLI) | payer MEDICAID | END 2020-05-19 13:26 | disposition home or self-care (01) | LOC: COV 13:25 | PROVIDERS: ATTEND Family Medicine | DX: Z20.828 Contact with and (suspected) exposure to other viral communicable diseases (principal) ==

== ENCOUNTER 2021-02-14 05:41 | Outpatient (CLI) | payer MEDICAID | END 2021-02-14 05:42 | disposition critical access hospital (66) | LOC: EMS 05:41 | DX: R25.1 Tremor, unspecified (principal); G83.9 Paralytic syndrome, unspecified; R47.01 Aphasia | CPT/HCPCS: A0425; A0429; A0999 ==

== ENCOUNTER 2021-02-14 05:55 | Inpatient (IN) | payer MEDICAID ==
[2021-02-14] MEDS ORDERED: SODIUM CHLORIDE 0.9% 1,000 ML IV STA (06:05)
--- NOTE | 2021-02-14 06:06 | ED Physician Documentation ---
PD HPI FOCAL NEURO - Stated complaint Stated Complaint: STROKE - History obtained from History obtained from: EMS - History of Present Illness Timing - onset: Unknown (he was found on ground behind row of mailboxes in his apartment building by neighbor checking mail this morning. Unknown how long he had been there.) Timing - details: Abrupt onset Severity of deficit: Severe Review of Systems Unable to obtain: AMS PD PAST MEDICAL HISTORY - Past Medical History Cardiovascular: Hypertension, Atrial fibrillation, Arrhythmia Respiratory: None Neuro: CVA (in 2019) Endocrine/Autoimmune: None GI: None : None Psych: None Musculoskeletal: None Derm: None - Present Medications Home Medications: Ambulatory Orders Medication Instructions Recorded Confirmed Aspirin 325 mg PO DAILY #30 tablet 07/03/19 Metoprolol Succinate [Toprol Xl] 12.5 mg PO DAILY #15 tablet 07/03/19 - Allergies Allergies/Adverse Reactions: Allergies Allergy/AdvReac Type Severity Reaction Status Date / Time No Known Drug Allergies Allergy Verified 07/02/19 01:43 - Social History Smoking Status: Never smoker - POLST Patient has POLST: No POLST Status: Full Code PD ED PE NORMAL - Vitals Vital signs reviewed: Yes - General General: Well developed/nourished, Other (able to follow command of hand rf manager on left. Indistinct vocalization but was able to answer "no" and yes to some questions, but no clear sentences/words otherwise. ) - HEENT HEENT: Atraumatic, Other (right facial droop) - Neck Neck: Supple, no meningeal sign, No adenopathy, No bruit - Cardiac Cardiac: No: RRR (irregular but normal rate. No noted murmur. ) - Respiratory Respiratory: Clear bilaterally - Abdomen Abdomen: Normal bowel sounds, Soft, Non distended - Male Male : Deferred - Rectal Rectal: Deferred - Derm Derm: Normal color, Warm and dry - Extremities Extremities: No edema, Other (abrasion right anterior lower leg and knee. No lacerations. No other noted injuries. ) - Neuro Neuro: No: No motor deficit, Normal speech Eye Opening: Spontaneous Motor: Obeys Commands Verbal: Incomprehensible GCS Score: 12 NIHSS - Level of Consciousness Level of consciousness: (0) Alert, Keenly responsive LOC Questions: (2) Answers neither correct LOC Commands: (1) Performs one correctly - Gaze Best Gaze: (0) Normal - Visual Visual: (0) No loss - Facial Palsy Facial Palsy: (2) Partial paralysis - Motor Arms (both separate) Motor Arm (right): (1) Drift Motor Arm (left): (0) No drift - Motor Legs (both separate) Motor Leg (right): (2) Some effort against gravity Motor Leg (left): (0) No drift - Limb Ataxia Limb Ataxia: (2) Present in 2 limbs - Sensory Sensory: (1) Gzpk-[id number] loss - Best Language Best Language: (2) Severe aphasia - Dysarthria Dysarthria: (1) Cqmk-sa-ilwttuve dysarthria - Extinction and Inattention (formally neg Extinction and inattention: (1) Visual,tactile,auditory,spatial, or personal inattention - Total Score/Results Total Score/Result: 15 Results - Vitals Vitals: Vital Signs - 24 hr 02/14/21 02/14/21 02/14/21 06:00 06:10 06:48 Temperature 36.6 C 36.6 C Heart Rate 76 76 71 Respiratory 24 24 20 Rate Blood Pressure 117/69 117/69 151/96 H O2 Saturation 99 99 100 02/14/21 02/14/21 07:15 07:39 Temperature Heart Rate 63 63 Respiratory 16 21 Rate Blood Pressure 184/98 H 193/146 H O2 Saturation 98 98 Oxygen O2 Source Room air - Labs Labs: Laboratory Tests 02/14/21 02/14/21 02/14/21 06:14 06:14 06:14 WBC 13.1 H RBC 5.05 Hgb 12.0 L Hct 39.9 L MCV 79.0 L MCH 23.8 L MCHC 30.1 L RDW 18.4 H Plt Count 282 MPV 9.7 Neut # (Auto) 12.0 H Lymph # (Auto) 0.4 L [place] # (Auto) 0.6 Eos # (Auto) 0.0 Baso # (Auto) 0.0 Absolute Nucleated RBC 0.00 Nucleated RBC % 0.0 ESR 1 PT INR APTT Sodium 139 Potassium 4.5 Chloride 106 Carbon Dioxide 19 L Anion Gap 14.0 H BUN 15 Creatinine 1.1 Estimated GFR (MDRD) 82 L Glucose 117 H Calcium 8.8 Magnesium 1.9 Total Bilirubin 1.2 H AST 77 H ALT 26 Alkaline Phosphatase 53 Total Protein 8.1 Albumin 3.7 Globulin 4.4 H Albumin/Globulin Ratio 0.8 L Lipase 30 Nasal Adenovirus (PCR) Nasal B. parapertussis DNA (PCR) Nasal Coronavir 229E PCR Nasal Coronavir HKU1 PCR Nasal Coronavir NL63 PCR Nasal Coronavir OC43 PCR Nasal Enterovir/Rhinovir PCR Nasal Influenza B PCR Nasal Influenza A PCR Nasal Parainfluen 1 PCR Nasal Parainfluen 2 PCR Nasal Parainfluen 3 PCR Nasal Parainfluen 4 PCR Nasal RSV (PCR) Nasal B.pertussis DNA PCR Nasal C.pneumoniae (PCR) Cody Human Metapneumo PCR Nasal M.pneumoniae (PCR) Nasal SARS-CoV-2 (PCR) Ethyl Alcohol < 5.0 02/14/21 02/14/21 06:14 06:30 WBC RBC Hgb Hct MCV MCH MCHC RDW Plt Count MPV Neut # (Auto) Lymph # (Auto) [place] # (Auto) Eos # (Auto) Baso # (Auto) Absolute Nucleated RBC Nucleated RBC % ESR PT 12.6 INR 1.1 APTT 23.1 L Sodium Potassium Chloride Carbon Dioxide Anion Gap BUN Creatinine Estimated GFR (MDRD) Glucose Calcium Magnesium Total Bilirubin AST ALT Alkaline Phosphatase Total Protein Albumin Globulin Albumin/Globulin Ratio Lipase Nasal Adenovirus (PCR) NOT DETECTED Nasal B. parapertussis DNA (PCR) NOT DETECTED Nasal Coronavir 229E PCR NOT DETECTED Nasal Coronavir HKU1 PCR NOT DETECTED Nasal Coronavir NL63 PCR NOT DETECTED Nasal Coronavir OC43 PCR NOT DETECTED Nasal Enterovir/Rhinovir PCR NOT DETECTED Nasal Influenza B PCR NOT DETECTED Nasal Influenza A PCR NOT DETECTED Nasal Parainfluen 1 PCR NOT DETECTED Nasal Parainfluen 2 PCR NOT DETECTED Nasal Parainfluen 3 PCR NOT DETECTED Nasal Parainfluen 4 PCR NOT DETECTED Nasal RSV (PCR) NOT DETECTED Nasal B.pertussis DNA PCR NOT DETECTED Nasal C.pneumoniae (PCR) NOT DETECTED Cody Human Metapneumo PCR NOT DETECTED Nasal M.pneumoniae (PCR) NOT DETECTED Nasal SARS-CoV-2 (PCR) NOT DETECTED Ethyl Alcohol - Rads (name of study) head CT Radiology: Prelim report reviewed, Discussed with rads (edema in left MCA area c/w acute CVA.), See rad report head/neck angio Radiology: Prelim report reviewed (no large vessel occlusions. ), See rad report PD MEDICAL DECISION MAKING - ED course Complexity details: d/w media sales consultant (talked with [employer] in [place], who reviewed imaging, and heard the history. No interventions indicated given edema already on CT and no LVO. Recommends usual stroke eval and care at our facility. )
[2021-02-14 06:18] LABS: BASOPHILS % (AUTO) 0.2 %; HCT - HEMATOCRIT 39.9 % (42.0-52.0); LYMPHOCYTES # (AUTO) 0.4 10^3/uL (1.5-3.5); LYMPHOCYTES % (AUTO) 3.2 %; MEAN CORPUSCULAR HEMOGLOBIN 23.8 pg (27.0-31.0); MEAN CORPUSCULAR HGB CONC 30.1 g/dL (32.0-36.0); MEAN PLATELET VOLUME 9.7 fL (7.4-11.4); MONOCYTES # (AUTO) 0.6 10^3/uL (0.0-1.0); MONOCYTES % (AUTO) 4.7 %; NEUTROPHILS % (AUTO) 91.7 %; PLT - PLATELET COUNT 282 10^3/uL (130-450); RED BLOOD COUNT 5.05 10^6/uL (4.70-6.10); RED CELL DISTRIBUTION WIDTH 18.4 % (12.0-15.0); WHITE BLOOD COUNT 13.1 x10^3/uL (4.8-10.8)
[2021-02-14 06:24] LABS: INR 1.1 (0.8-1.2); PT - PROTHROMBIN TIME 12.6 secs (9.9-12.6)
[2021-02-14 06:31] LABS: ALBUMIN 3.7 g/dL (3.2-5.5); ALBUMIN/GLOBULIN RATIO 0.8 (1.0-2.2); ALKALINE PHOSPHATASE 53 IU/L (42-121); ALT ALANINE AMINOTRANSFERASE 26 IU/L (10-60); AST ASPARTATE AMINOTRANSFERASE 77 IU/L (10-42); BILIRUBIN,TOTAL 1.2 mg/dL (0.2-1.0); BUN - BLOOD UREA NITROGEN 15 mg/dL (6-20); CALCIUM 8.8 mg/dL (8.5-10.3); CARBON DIOXIDE - CO2 19 mmol/L (21-32); CHLORIDE 106 mmol/L (101-111); CREATININE 1.1 mg/dL (0.6-1.2); ETOH - ETHANOL < 5.0 mg/dL; GFR - MDRD 82 (>89); GLUCOSE 117 mg/dL (70-100); LIPASE 30 U/L (22-51); MAGNESIUM 1.9 mg/dL (1.7-2.8); PARTIAL THROMBOPLASTIN TIME 23.1 secs (24.9-33.3); POTASSIUM 4.5 mmol/L (3.5-5.0); SODIUM 139 mmol/L (135-145); TOTAL PROTEIN 8.1 g/dL (6.7-8.2)
[2021-02-14] MEDS ORDERED: IOVERSOL 320 100 ML VIAL IVP ONE ×2 (07:06→07:42)
[2021-02-14] MEDS ORDERED: ASPIRIN 300 MG SUPP PR STA (07:14)
[2021-02-14 07:31] LABS: B. PARAPERTUSSIS- RESP PCR PAN NOT DETECTED; B. PERTUSSIS- RESP PCR PANEL NOT DETECTED; C. PNEUMONIAE- RESP PCR PANEL NOT DETECTED; CORONAVIRUS 229E-RESP PCR NOT DETECTED; CORONAVIRUS HKU1-RESP PCR NOT DETECTED; CORONAVIRUS NL63-RESP PCR NOT DETECTED; CORONAVIRUS OC43-RESP PCR NOT DETECTED; HUMAN METAPNEUMOVIRUS NOT DETECTED; INFLUENZA A- RESP PCR PANEL NOT DETECTED; INFLUENZA B - RESP PCR PANEL NOT DETECTED; M. PNEUMONIAE- RESP PCR PANEL NOT DETECTED; PARAINFLUENZA VIRUS 1 NOT DETECTED; PARAINFLUENZA VIRUS 2 NOT DETECTED; PARAINFLUENZA VIRUS 3 NOT DETECTED; PARAINFLUENZA VIRUS 4 NOT DETECTED; RHINOVIRUS/ENTEROVIRUS NOT DETECTED; RSV- RESP PCR PANEL NOT DETECTED; SARS-CoV-2 -RESP PCR PANEL NOT DETECTED
[2021-02-14] MEDS ORDERED: ONDANSETRON 4 MG/2 ML VIAL IVP PRN (07:43)
[2021-02-14] MEDS ORDERED: SODIUM CHLORIDE FLUSH 0.9% 10 ML SYRINGE IVP PRN (07:43)
--- NOTE | 2021-02-14 07:52 | CT Report ---
PROCEDURE: Head W/O Stroke Protocol INDICATIONS: right sided weakness; trouble speaking TECHNIQUE: Noncontrast 4.5 mm thick angled axial sections acquired from the foramen magnum to the vertex, with c oronal reformats. For radiation dose reduction, the following was used: automated exposure control, adjustment of mA and/or kV according to patient size. COMPARISON: CTA head and neck 02/14/2021 FINDINGS: Image quality: Excellent. CSF spaces: Basal cisterns are patent. No extra-axial fluid collections. Ventricles are normal in size and shape. Brain: No midline shift. No intracranial masses or hemorrhage. Ill-defined low-attenuation focus is present in the left frontotemporal and parietal lobes, measuring approximately 3.7 x 4.6 cm. Low-att enuation foci are present within the cerebellar hemispheres bilaterally most consistent with ischemia . Areas of periventricular and subcortical white matter hypoattenuation are present suggestive chroni c microvascular ischemia. Skull and face: Calvarium and visualized facial bones are intact, without suspicious lesions. Sinuses: Visualized sinuses and mastoids are clear. IMPRESSION: 1. Low-attenuation within the left frontotemporal and parietal lobes as above. This is most suspiciou s for subacute ischemia. However, other etiologies of edema cannot be definitively excluded. MRI is r ecommended as clinically indicated for further evaluation. 2. Mild chronic microvascular ischemia. The above findings are concordant with preliminary report. This study fulfills neurological imaging criteria for inclusion or exclusion of acute stroke therapie s based on available published neurological imaging guidelines. Reviewed by: Jenelle Morrissey MD on 02/14/2021 7:50 AM PDT Approved by: Jenelle Morrissey MD on 02/14/2021 7:50 AM PDT Station ID: [id number]
--- NOTE | 2021-02-14 07:53 | HISTORY & PHYSICAL EXAMINATION ---
Chief Complaint - Chief Complaint Chief Complaint: right facial droop, right-sided weakness <Graeme Cerda - Last Filed: 02/14/21 16:38> History of Present Illness - Admitted From Admitted From:: [facility] ED - History Obtained From Records Reviewed: yes History obtained from: ED physcian Exam Limitations: aphasia <Graeme Cerda - Last Filed: 02/14/21 16:38> - History of Present Illness HPI Comment/Other: Patient is 65-year-old male with medical history significant for a CVA in April 2020 with residual aphasia, atrial fibrillation and hypertension who was brought to the ED by EMS after he had been found down by the mailbox at the 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 It is unclear how long he had been down. He was noted to have a right-sided facial droop and right-sided weakness. In the ED work-up included a CT and CT angio of the head and neck which showed Left fronto-parietal temporal low-attenuation focus highly suggestive of acute/subacute ischemia. MRI of the brain was recommended for further evaluation. At bedside the patient is awake but not oriented to place, time or reason. He is unable to follow commands. Is unclear if he is able to comprehend instructions given. He seems to have a right sided neglect. After the CVA in April 2020 it appear he had not followed up with a PCP. It is unclear if he has been on eliquis, metoprolol or atorvastatin He is being admitted for further work up and treatment (Graeme Cerda ) History - Past Medical History Cardiovascular: reports: Hypertension, Atrial fibrillation, Arrhythmia Respiratory: reports: None Neuro: reports: CVA (in 2019) Endocrine/Autoimmune: reports: None GI: reports: None : reports: None Psych: reports: None Musculoskeletal: reports: None Derm: reports: None - Family & Social History Family History Comment/Other: The details of this could not be obtained because of his expressive aphasia. Social History Notes: He does not smoke drink or use illicit drugs - POLST Patient has POLST: No POLST Status: Full Code <AndreholdenGraeme whitley - Last Filed: 02/14/21 16:38> Meds/Allgy <Aubrey Montiel - Last Filed: 02/14/21 07:59> [facility] - Last Filed: 02/14/21 16:38> - Home Medications Home Medications: Ambulatory Orders Medication Instructions Recorded Confirmed Aspirin 325 mg PO DAILY #30 tablet 07/03/19 02/14/21 Metoprolol Succinate [Toprol Xl] 12.5 mg PO DAILY #15 tablet 07/03/19 02/14/21 - Allergies Allergies/Adverse Reactions: Allergies Allergy/AdvReac Type Severity Reaction Status Date / Time No Known Drug Allergies Allergy Verified 07/02/19 01:43 Review of Systems [facility] Last Filed: 02/14/21 16:38> - Other Findings Other Findings: Review of system is limited due to patient's acute CVA, aphasia and possible altered mental status. It is unclear and difficult to determine if the patient comprehends conversation currently ([facility]) <[facility] - Last Filed: 02/14/21 16:38> Prior Level of Functionality: Patient has been independent of activities of daily living. 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 [facility] Exam - Physical Exam General Appearance: positive: No acute distress, Other (awake but not to place, time or reason) Eyes Bilateral: positive: PERRL, EOMI ENT: positive: No signs of dehydration Neck: positive: No JVD, Trachea midline Respiratory: positive: Chest non-tender, No respiratory distress, Breath sounds nml. negative: Wheezes, Rales, Rhonchi Cardiovascular: positive: No murmur, Irregularly irregular Abdomen: positive: Non-tender, No organomegaly, Nml bowel sounds, No distention. negative: Guarding, Rebound Back: positive: Nml inspection Skin: positive: Other (bruises and scrapes on right lower extremity) Extremities: positive: Non-tender, No pedal edema Neurologic/Psychiatric: positive: Mood/affect nml, Disoriented to place, Disoriented to time, Weakness (right sided weakness), Facial droop (right), Other (aphasia) <[facility] - Last Filed: 02/14/21 16:38> - Vital Signs Vital Signs: Vital Signs x48h Temp Pulse Resp BP Pulse Ox 02/14/21 07:39 63 21 193/146 H 98 02/14/21 07:15 63 16 184/98 H 98 02/14/21 06:48 71 20 151/96 H 100 02/14/21 06:10 36.6 C 76 24 117/69 99 02/14/21 06:00 36.6 C 76 24 117/69 99 Conclusion/Plan - Lab Results Fish Bones: 02/14/21 06:14 02/14/21 06:14 <Aubrey Montiel - Last Filed: 02/14/21 07:59> - Problem List (1) Cerebrovascular accident (CVA) Conclusion/Plan: Right-sided weakness/ ?neglect and aphasia CT and CT angio of the head and neck indicated a left frontoparietal infarct. Teleneurology was contacted by the ED physician. TPA was not advised because it was unclear how long the patient had been down. Patient currently n.p.o. except for medications. Speech therapy to see for swallow eval. PT OT ordered. MRI of the brain pending. Neurochecks every shift We will allow for permissive hypertension for 24 hours. After that we will resume patient's metoprolol succinate 12.5 mg daily. Upon discharge from last admission which was the patient's first CVA. He was tp follow-up with a neurologist and a auction block clerk for further work-up of his atrial fibrillation and to determine if anticoagulation would be advised for h im. It appears the patient never saw a neurologist or auction block clerk. Currently he only takes metoprolol. The echocardiogram Showed an ejection fraction of 60 to 65%. The left ventricular size was normal. There was mild concentric left ventricular hypertrophy. There was no obvious regional wall motion abnormality. No aortic stenosis, aortic regurgitation. RVSP at rest is 39 mmHg. There was no pleural effusion, mass or thrombus. Qualifiers: CVA mechanism: unspecified Qualified Code(s): I63.9 - Cerebral infarction, unspecified (3) Hypertension Conclusion/Plan: Allow permissive hypertension for now. After 24 hours we will resume patient's metoprolol succinate. We will also order an antihypertensive as needed (4) Atrial fibrillation Conclusion/Plan: Will resume patient's metoprolol after 24 hours (period of permissive hypertension). It had been recommended to follow-up with neurology to determine if anticoagulation would be advised for him He was not immediately started on anticoagulation upon discharge since recommendations were to wait for 2 weeks to assure the risk of hemorrhagic conversion of an acute CVA was low. It appears the patient never saw a auction block clerk or neurologist. Qualifiers: Atrial fibrillation type: longstanding persistent Qualified Code(s): I48.11 - Longstanding persistent atrial fibrillation - Lab Results Fish Bones: 02/14/21 06:14 02/14/21 06:14 <Graeme Cerda F - Last Filed: 02/14/21 16:38> Core Measures - Anticipated LOS I expect patient to be DC'd or transferred within 96 hours.: Yes - DVT/VTE - Prophylaxis VTE/DVT Device ordered at admit?: Yes - Stroke - Rehab Assessment Rehab services assessment to be ordered?: Yes - AMI - Statin at Admit Aspirin Prescribed on Admit: Yes <Graeme Cerda F - Last Filed: 02/14/21 16:38>
--- NOTE | 2021-02-14 07:58 | XRAY Report ---
PROCEDURE: Chest 1 View X-Ray INDICATIONS: chest pain TECHNIQUE: One view of the chest was acquired. COMPARISON: 07/01/2019 FINDINGS: Surgical changes and devices: None. Lungs and pleura: No pleural effusions or pneumothorax. Mild diffuse interstitial prominence, as bef ore. No focal infiltrates. Elevation of left hemidiaphragm, as before. Mediastinum: Mediastinal contours appear normal. Mild cardiomegaly, as before. Bones and chest wall: No suspicious bony lesions. Overlying soft tissues appear unremarkable. IMPRESSION: Unchanged findings. Mild cardiomegaly. Reviewed by: Shaggy Dominguez MD on 02/14/2021 7:56 AM PDT Approved by: Shaggy Dominguez MD on 02/14/2021 7:56 AM PDT Station ID: [id number]
[2021-02-14] MEDS ORDERED: SODIUM CHLORIDE 0.9% 1,000 ML IV SCH (08:00)
--- NOTE | 2021-02-14 08:02 | CT Report ---
PROCEDURE: ANGIO HEAD W/WO INDICATIONS: L sided facial droop CONTRAST: IV CONTRAST: Optiray 320 ml: 100 PO CONTRAST: *NO PO CONTRAST TECHNIQUE: Precontrast 4.5 mm thick angled axial sections acquired from the foramen magnum to the vertex. Afte r the administration of intravenous contrast, 1 mm thick sections acquired through the [place] of [place] is. Postcontrast 4.5 mm thick sections then re-acquired from the foramen magnum to the vertex. 3-di mensional vubyfxv-ydhgwaxpk-pbgrhxmauc (MIP) and/or volume rendering reformats were acquired of the c entral intracranial vasculature. For radiation dose reduction, the following was used: automated ex posure control, adjustment of mA and/or kV according to patient size. COMPARISON: CTA neck and CT head 02/14/2021 FINDINGS: Image quality: Prominent motion is present on multiple sequences, limiting areas of fine detail evalu ation. Anterior circulation: Intracranial internal carotid arteries are normal in size and flow. The flow within the paired anterior cerebral arteries is normal and symmetric. There appears to be a marked de mineralization of caliber of the distal left middle cerebral artery, and 3 branch with poorly visuali zed flow. The anterior communicating artery is seen. No aneurysms are seen. Posterior circulation: Visualized portions of the vertebral arteries demonstrate normal caliber, and join to form a normal appearing basilar artery. Flow within the posterior cerebral arteries is norm al and symmetric. No aneurysms are seen. There is a left posterior vertebral artery dominance. CSF spaces: Ventricles are normal in size and shape. Basal cisterns are patent. No extra-axial flu id collections. Brain: No midline shift. No intracranial bleeds or masses. Bilateral low-attenuation foci are prese nt within the cerebellar hemispheres consistent with prior infarction. Low-attenuation is present in the left frontal parietal and temporal lobes. Skull and face: Calvarium and facial bones appear intact, without suspicious lesions. Sinuses: Visualized sinuses and mastoids are clear. IMPRESSION: 1. Left frontoparietal temporal low-attenuation focus highly suggestive of acute/subacute ischemia. A s noted on CTA head, other etiologies cannot be definitively excluded and MRI is recommended for furt her evaluation as indicated. 2. Despite multiple sequences of significant motion throughout the exam, there is marked diminutive a ppearance of the left M3 segment of the middle cerebral artery appearing most suggestive of occlusion . The above findings are concordant with preliminary report. Reviewed by: Jenelle Morrissey MD on 02/14/2021 8:01 AM PDT Approved by: Jenelle Morrissey MD on 02/14/2021 8:01 AM PDT Station ID: [id number]
--- NOTE | 2021-02-14 08:05 | CT Report ---
PROCEDURE: ANGIO NECK W INDICATIONS: L sided facial droop, L neck pain CONTRAST: IV CONTRAST: Optiray 320 ml: 100 PO CONTRAST: *NO PO CONTRAST TECHNIQUE: After the administration of intravenous contrast, 1.5 mm axial sections acquired from the aortic arch to the [place] of [place]. Coronal 3-D maximum intensity projection (MIP) and/or volume rendering ref ormats were then performed. For radiation dose reduction, the following was used: automated exposur e control, adjustment of mA and/or kV according to patient size. COMPARISON: CT head, CTA had 02/14/2021. FINDINGS: Image quality: Excellent. The origins of the left and right common, internal and external carotid arteries demonstrate no areas of hemodynamically significant stenosis, vascular occlusion or aneurysmal dilation. Origin of the le ft vertebral artery and right vertebral artery demonstrate no areas of hemodynamically significant st enosis, vascular occlusion or aneurysmal dilation. Aortic arch demonstrates conventional anatomy. Gold ited, visualized portions of the subclavian vasculature are unremarkable. IMPRESSION: There are no areas of hemodynamically significant stenosis, vascular occlusion or aneurysmal dilation within the neck vasculature. The above findings are concordant with preliminary report. The estimate of stenosis included in the report of the imaging study was calculated using the NASCET method CLINICAL RECOMMENDATION STATEMENTS: In patients <35 years with an ITN detected on CT, MRI, or extrathyroidal ultrasound, the Committee re commends further evaluation with dedicated thyroid ultrasound if the nodule is "e1 cm and has no susp icious imaging features, and if the patient has normal life expectancy. In patients "e35 years with an ITN detected on CT, MRI, or extrathyroidal ultrasound, the Committee r ecommends further evaluation with dedicated thyroid ultrasound if the nodule is "e1.5 cm and has no s uspicious imaging features, and if the patient has normal life expectancy. (ACR, 2014) Reviewed by: Jenelle Morrissey MD on 02/14/2021 8:03 AM PDT Approved by: Jenelle Morrissey MD on 02/14/2021 8:03 AM PDT Station ID: [id number]
[2021-02-14] MEDS: SODIUM CHLORIDE FLUSH 0.9% 10 ML SYRINGE IVP SCH ×2 (09:55→16:05)
[2021-02-14 12:39] LABS: ESTIMATED AVERAGE GLUCOSE 111 mg/dL (70-100); HEMOGLOBIN A1c% 5.5 % (4.27-6.07)
--- NOTE | 2021-02-14 13:56 | PHARMACY PROGRESS NOTE ---
- Best Possible Medication History Admit Date and Time: 02/14/21 0743 Processed by: Pharmacy Patient Interview: Pt unable to participate Secondary Source(s): Physician records, Insurance records, Previous admit records Patient is unable to provide medication history. His sister was present but she does not know which medications the patient takes. The patient lives alone and manages his own medications. Medication list was updated using insurance information along with PCP notes from an office visit on 10/11/2020. From the note, it sounds like the patient was supposed to receive follow up with neurology and cardiology last year in order to determine if anticoagulation therapy was needed. As the person ultimately responsible for medication therapy, providers are able to order a medication from an existing home medication list in [facility] via the "Reconcile Routine" prior to Confirmation of that medication by clerical support. Such practice is discouraged except when the physician, in their clinical judgment, deems that a medical need exists for a medication without regard to previous use.
--- NOTE | 2021-02-14 14:05 | MRI Report ---
PROCEDURE: Brain W/O INDICATIONS: Right-sided weakness TECHNIQUE: Noncontrast axial T1 spin echo, axial T2 fast spin echo, sagittal and axial FLAIR, coronal T2 fast sp in echo, axial gradient echo, axial diffusion and ADC through the brain. COMPARISON: Head CT 02/14/2021 FINDINGS: Image quality: Motion degraded exam. CSF Spaces: Basal cisterns are patent. No extra-axial fluid collections. Ventricles are normal in size and shape. Brain: There are multiple subacute left MCA territory infarcts. There is also an subacute small left cerebellar hemispheric infarct, as well as a subacute small lacunar infarct in the right andrea radia ta. No significant associated mass effect or midline shift. Mild global cerebral volume loss and mode rate chronic microvascular ischemic changes present. Susceptibility weighted images demonstrate mild petechial hemorrhage at the surface of the larger left frontal lobe infarcts. No tamiko parenchymal he morrhage. Skull and face: Calvarium has normal marrow signal. Orbits appear normal. Sinuses: Sinuses and mastoids are clear. IMPRESSION: Multiple left MCA territory subacute infarcts. Small subacute left cerebellar hemispheric infarct. Subacute lacunar infarct in the right andrea radiata. The bilateral distribution of infarcts raises concern for a proximal embolic source. Reviewed by: Jaylon Greene MD on 02/14/2021 2:04 PM PDT Approved by: Jaylon Greene MD on 02/14/2021 2:04 PM PDT Station ID: [id number]
--- NOTE | 2021-02-14 14:29 | CT Report ---
PROCEDURE: UPPER EXTREMITY WO - RT INDICATIONS: dropped right shoulder, s/p fall TECHNIQUE: Noncontrast 3 mm axial sections acquired of the right shoulder, with coronal and sagittal reformats. COMPARISON: None. FINDINGS: Image quality: Excellent. Bones: No definite or displaced fracture identified. There is anatomic alignment of the glenohumeral and AC joint spaces. Scattered subchondral sclerosis and spurring. Moderate AC joint degeneration. There is [id number] glenohumeral degenerative joint disease. Soft tissues: Visualized left lung grossly unremarkable. Atrophy of the supraspinatus muscle suggest feng of long-standing rotator cuff pathology. IMPRESSION: No fracture identified. Chronic and degenerative changes as above. If there is clinical concern for s oft tissue injury recommend further evaluation with noncontrast shoulder MRI. Reviewed by: Roman Killian MD on 02/14/2021 2:28 PM PDT Approved by: Roman Killian MD on 02/14/2021 2:28 PM PDT Station ID: [id number]
[2021-02-14] MEDS: DEXTROSE 5%-0.45% NACL 1,000 ML IV SCH (16:55)
[2021-02-15] MEDS: SODIUM CHLORIDE FLUSH 0.9% 10 ML SYRINGE IVP SCH ×4 (02:33→23:48)
[2021-02-15] MEDS: DEXTROSE 5%-0.45% NACL 1,000 ML IV SCH ×3 (02:33→23:40)
[2021-02-15 05:44] LABS: BASOPHILS % (AUTO) 0.3 %; EOSINOPHILS # (AUTO) 0.1 10^3/uL (0.0-0.7); EOSINOPHILS % (AUTO) 0.8 %; HCT - HEMATOCRIT 36.6 % (42.0-52.0); HGB - HEMOGLOBIN 11.2 g/dL (14.0-18.0); LYMPHOCYTES # (AUTO) 1.6 10^3/uL (1.5-3.5); LYMPHOCYTES % (AUTO) 17.9 %; MEAN CORPUSCULAR HEMOGLOBIN 23.4 pg (27.0-31.0); MEAN CORPUSCULAR HGB CONC 30.6 g/dL (32.0-36.0); MEAN CORPUSCULAR VOLUME 76.6 fL (80.0-94.0); MEAN PLATELET VOLUME 9.5 fL (7.4-11.4); MONOCYTES # (AUTO) 0.7 10^3/uL (0.0-1.0); MONOCYTES % (AUTO) 8.3 %; NEUTROPHILS # (AUTO) 6.3 10^3/uL (1.5-6.6); NEUTROPHILS % (AUTO) 72.2 %; PLT - PLATELET COUNT 246 10^3/uL (130-450); RED BLOOD COUNT 4.78 10^6/uL (4.70-6.10); RED CELL DISTRIBUTION WIDTH 17.8 % (12.0-15.0); WHITE BLOOD COUNT 8.7 x10^3/uL (4.8-10.8)
[2021-02-15 06:03] LABS: BUN - BLOOD UREA NITROGEN 9 mg/dL (6-20); CALCIUM 8.3 mg/dL (8.5-10.3); CARBON DIOXIDE - CO2 23 mmol/L (21-32); CHLORIDE 107 mmol/L (101-111); CHOL/HDL RATIO 2.1 (<5.0); CHOLESTEROL 137 mg/dL; CREATININE 0.8 mg/dL (0.6-1.2); GFR - MDRD 118 (>89); GLUCOSE 106 mg/dL (70-100); HDL CHOLESTEROL 65 mg/dL; LDL CHOLESTEROL,CALCULATED 61 mg/dL; LDL/HDL RATIO 0.9 (<3.6); POTASSIUM 3.2 mmol/L (3.5-5.0); SODIUM 138 mmol/L (135-145); TRIGLYCERIDES 55 mg/dL; VLDL CHOLESTEROL 11 mg/dL
[2021-02-15] MEDS: POTASSIUM CHLOR 10 MEQ/100 ML 10 MEQ/100 ML BAG IV SCH ×4 (07:58→12:02)
[2021-02-15 08:46] LABS: % IRON SATURATION 20 % (20-50); IRON 75 ug/dL (45-182); TOTAL IRON BINDING CAPACITY 371 ug/dL (250-450); TRANSFERRIN 265 mg/dL (180-329)
[2021-02-15] MEDS ORDERED: ASPIRIN EC 81 MG TABLET PO SCH (09:00)
--- NOTE | 2021-02-15 10:30 | PROVIDER PROGRESS NOTE ---
Subjective - Prog Note Date Prog Note Date: 02/15/21 - Subjective Subjective: I am unable to obtain a history from the patient as he has expressive aphasia. Sister is present at bedside. Current Medications - Current Medications Current Medications: Active Medications Acetaminophen (Acetaminophen 325 Mg Tablet) 650 mg PO Q4HR PRN PRN Reason: Pain 1 to 4 Aspirin (Aspirin Chew 81 Mg Tablet) 81 mg NG DAILY MANNY Atorvastatin Calcium (Atorvastatin 40 Mg Tablet) 80 mg NG QPM MANNY Potassium Chloride (Potassium Chloride) 10 meq in 100 mls @ 100 mls/hr IV Q1H MANNY Stop: 02/15/21 11:59 Last Admin: 02/15/21 10:26 Dose: 75 mls/hr Documented by: Dextrose/Sodium Chloride (D5.45ns) 1,000 mls @ 100 mls/hr IV .Q10H MANNY Insulin Human Regular (Insulin Regular Human 300 Unit/3 Ml Vial) 1 - 5 unit SUBQ Q6HR MANNY; Protocol Ondansetron HCl (Ondansetron 4 Mg/2 Ml Vial) 4 mg IVP Q6HR PRN PRN Reason: Nausea / Vomiting Sodium Chloride (Sodium Chloride Flush 0.9% 10 Ml Syringe) 10 ml IVP PRN PRN PRN Reason: NEEDED PER PROVIDER ORDERS Last Admin: 02/14/21 13:32 Dose: 10 ml Documented by: Sodium Chloride (Sodium Chloride Flush 0.9% 10 Ml Syringe) 10 ml IVP 0100,0900,1700 [facility] Last Admin: 02/15/21 07:59 Dose: Not Given Documented by: Objective - Vital Signs/Intake & Output Reviewed Vital Signs: Yes Vital Signs: Vital Signs x48h Temp Pulse Resp BP Pulse Ox 02/15/21 07:34 37.2 C 85 18 165/90 H 98 02/15/21 05:00 37.1 C 84 22 154/80 H 98 Intake & Output: Intake & Output 02/12/21 02/13/21 02/14/21 02/15/21 23:59 23:59 23:59 23:59 Intake Total 2140.000 1153.75 Balance 2140.000 1153.75 - Objective General Appearance: positive: No acute distress, Alert Eyes Bilateral: positive: Normal inspection, PERRL, Conjunctivae nml ENT: positive: ENT inspection nml Neck: positive: Nml inspection Respiratory: positive: No respiratory distress. negative: Wheezes, Rales Cardiovascular: positive: Irregularly irregular. negative: Tachycardia, Systolic murmur Abdomen: positive: Non-tender, No distention. negative: Tenderness Skin: positive: Warm, Dry Extremities: positive: No pedal edema Neurologic/Psychiatric: positive: Facial droop (Right-sided), Slurred/abnml speech (His speech is slurred and he repeats no to every question.), Other (Due to his expressive aphasia. He has good strength in his left upper and lower extremities that appears to be 5 out of 5. He has 1 out of 5 motor strength in his right upper extremity and about 2 out of 5 in his right lower extremity.) - Lab Results Fish Bones: 02/15/21 05:28 02/15/21 05:28 Other Labs: Lab Results x24hrs 02/15/21 02/15/21 02/15/21 Range/Units 08:18 08:18 05:28 WBC 8.7 (4.8-10.8) x10^3/uL RBC 4.78 (4.70-6.10) 10^6/uL Hgb 11.2 L (14.0-18.0) g/dL Hct 36.6 L (42.0-52.0) % MCV 76.6 L (80.0-94.0) fL MCH 23.4 L (27.0-31.0) pg MCHC 30.6 L (32.0-36.0) g/dL RDW 17.8 H (12.0-15.0) % Plt Count 246 (130-450) 10^3/uL MPV 9.5 (7.4-11.4) fL Neut # (Auto) 6.3 (1.5-6.6) 10^3/uL Lymph # (Auto) 1.6 (1.5-3.5) 10^3/uL [place] # (Auto) 0.7 (0.0-1.0) 10^3/uL Eos # (Auto) 0.1 (0.0-0.7) 10^3/uL Baso # (Auto) 0.0 (0.0-0.1) 10^3/uL Absolute Nucleated RBC 0.00 x10^3/uL Nucleated RBC % 0.0 /100WBC Sodium (135-145) mmol/L Potassium (3.5-5.0) mmol/L Chloride (101-111) mmol/L Carbon Dioxide (21-32) mmol/L Anion Gap (6-13) BUN (6-20) mg/dL Creatinine (0.6-1.2) mg/dL Estimated GFR (MDRD) (>89) Glucose (70-100) mg/dL Estimat Average Glucose (70-100) mg/dL Hemoglobin A1c % (4.27-6.07) % Calcium (8.5-10.3) mg/dL Iron 75 (45-182) ug/dL TIBC 371 (250-450) ug/dL % Saturation 20 (20-50) % Transferrin 265 (180-329) mg/dL Ferritin 22.5 L (23.9-336.2) ng/mL Triglycerides ( - 149) mg/dL Cholesterol ( - 199) mg/dL LDL Cholesterol, Calc ( - 129) mg/dL VLDL Cholesterol mg/dL HDL Cholesterol (60 - ) mg/dL LDL/HDL Ratio (<3.6) Cholesterol/HDL Ratio (<5.0) 02/15/21 02/14/21 Range/Units 05:28 08:16 WBC (4.8-10.8) x10^3/uL RBC (4.70-6.10) 10^6/uL Hgb (14.0-18.0) g/dL Hct (42.0-52.0) % MCV (80.0-94.0) fL MCH (27.0-31.0) pg MCHC (32.0-36.0) g/dL RDW (12.0-15.0) % Plt Count (130-450) 10^3/uL MPV (7.4-11.4) fL Neut # (Auto) (1.5-6.6) 10^3/uL Lymph # (Auto) (1.5-3.5) 10^3/uL [place] # (Auto) (0.0-1.0) 10^3/uL Eos # (Auto) (0.0-0.7) 10^3/uL Baso # (Auto) (0.0-0.1) 10^3/uL Absolute Nucleated RBC x10^3/uL Nucleated RBC % /100WBC Sodium 138 (135-145) mmol/L Potassium 3.2 L (3.5-5.0) mmol/L Chloride 107 (101-111) mmol/L Carbon Dioxide 23 (21-32) mmol/L Anion Gap 8.0 (6-13) BUN 9 (6-20) mg/dL Creatinine 0.8 (0.6-1.2) mg/dL Estimated GFR (MDRD) 118 (>89) Glucose 106 H (70-100) mg/dL Estimat Average Glucose 111 H (70-100) mg/dL Hemoglobin A1c % 5.5 (4.27-6.07) % Calcium 8.3 L (8.5-10.3) mg/dL Iron (45-182) ug/dL TIBC (250-450) ug/dL % Saturation (20-50) % Transferrin (180-329) mg/dL Ferritin (23.9-336.2) ng/mL Triglycerides 55 ( - 149) mg/dL Cholesterol 137 ( - 199) mg/dL LDL Cholesterol, Calc 61 ( - 129) mg/dL VLDL Cholesterol 11 mg/dL HDL Cholesterol 65 (60 - ) mg/dL LDL/HDL Ratio 0.9 (<3.6) Cholesterol/HDL Ratio 2.1 (<5.0) Assessment/Plan - Problem List (1) Cerebrovascular accident (CVA) Impression: He unfortunately is evidence of multiple infarcts on the MRI of the brain. This is likely embolic in nature given his atrial fibrillation. He continues to have significant deficits including right-sided weakness and aphasia. I did speak with neurology at [facility] today to discuss the potential need for transfer. 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 They recommended placing an NG tube and starting him on aspirin 81 mg daily as well as Lipitor 80 mg in the evening. They felt that if he continued to have dysphagia for 2 weeks and he would likely need a PEG tube. They asked us to al low his systolic blood pressure to remain less than 160 over next 5 days before further lowering it to normotension. They stated that if he has any change in his mental status such as increased somnolence with lethargic he then we should repeat imaging and contact them immediately as transfer would likely be warranted at that time. They state this could occur up to 3 days after the stroke. They recommended that anticoagulation can be initiated in about 2 weeks.. In the meantime, we will continue him on aspirin and Lipitor. An NG tube will be placed today. He will continue to be seen by PT and OT as well as speech. He is n.p.o. We will look to start tube feeds today. Qualifiers: CVA mechanism: embolism Precerebral and cerebral artery: middle cerebral artery Laterality of affected vessel: left Qualified Code(s): I63.412 - Cerebral infarction due to embolism of left middle cerebral artery (2) Aphasia Impression: This is secondary to the stroke. He has receptive and expressive aphasia. We will continue with PT, OT, speech therapy. Continue the management of the stroke as mentioned above. (3) Atrial fibrillation Impression: He is on metoprolol at home but not anticoagulation. He currently is rate controlled. We will resume his metoprolol today at 12.5 mg to maintain a systolic blood pressure less than 160. Preliminary echocardiogram report did not reveal any obvious thrombus. He will need anticoagulation in 2 weeks after the stroke. Qualifiers: Atrial fibrillation type: longstanding persistent Qualified Code(s): I48.11 - Longstanding persistent atrial fibrillation (4) Hypertension Impression: His systolic blood pressures range from the 150's to 160's. We will resume his metoprolol today with a goal systolic blood pressure less than 160 as recommended by neurology. This will be our goal for the next 5 days before further reduction with the goal of normotension.
[2021-02-15] MEDS: INSULIN REGULAR HUMAN 300 UNIT/3 ML VIAL SUBQ SCH ×3 (11:17→23:48)
[2021-02-15] MEDS ORDERED: METOPROLOL SUCCINATE 25 MG TABLET PO SCH (12:00)
--- NOTE | 2021-02-15 12:13 | XRAY Report ---
PROCEDURE: Chest for Line Placement INDICATIONS: CONFIRM NG TUBE PLACEMENT TECHNIQUE: One view of the chest was acquired. COMPARISON: 07/01/2019 FINDINGS: Surgical changes and devices: Enteric tube is coiled within the proximal stomach. Lungs and pleura: No pleural effusions or pneumothorax. Lungs are clear. Mediastinum: Mediastinal contours appear normal. Heart size is normal. Bones and chest wall: No suspicious bony lesions. Overlying soft tissues appear unremarkable. IMPRESSION: Enteric tube coiled within the proximal stomach. Reviewed by: Jaylon Greene MD on 02/15/2021 12:11 PM PDT Approved by: Jaylon Greene MD on 02/15/2021 12:11 PM PDT Station ID: [id number]
--- NOTE | 2021-02-15 14:17 | XRAY Report ---
PROCEDURE: Chest for Line Placement INDICATIONS: NG TUBE PLACEMENT CHECK TECHNIQUE: One view of the chest was acquired. COMPARISON: None FINDINGS: Surgical changes and devices: NGT is not well seen and mid/lower chest. Lungs and pleura: No pleural effusions or pneumothorax. Lungs are clear. Mediastinum: Mediastinal contours appear normal. Heart size is normal. Bones and chest wall: No suspicious bony lesions. Overlying soft tissues appear unremarkable. IMPRESSION: 1. No acute process. 2. Suboptimal evaluation of NGT. Reviewed by: Raymond Marlow MD on 02/15/2021 2:16 PM PDT Approved by: Raymond Marlow MD on 02/15/2021 2:16 PM PDT Station ID: [id number]
--- NOTE | 2021-02-15 19:33 | XRAY Report ---
PROCEDURE: Chest for Line Placement INDICATIONS: Post NG tube. TECHNIQUE: One view of the chest was acquired. COMPARISON: Earlier study on the same day. FINDINGS: Surgical changes and devices: NG tube is seen to the level of mid chest. More distal portion is not w ell visualized. Lungs and pleura: Pulmonary vascular congestion is seen. No pleural effusions or pneumothorax. No de finite focal infiltrate. Mediastinum: Mediastinal contours appear normal. Heart size is normal. Bones and chest wall: No suspicious bony lesions. Overlying soft tissues appear unremarkable. IMPRESSION: NG tube tip is not well seen due to study technique. Persistent pulmonary vascular congestion. No walt ss free air. Reviewed by: Yuriy Mendes MD on 02/15/2021 7:31 PM PDT Approved by: Yuriy Mendes MD on 02/15/2021 7:31 PM PDT Station ID: [id number]
--- NOTE | 2021-02-15 20:44 | XRAY Report ---
PROCEDURE: Chest 1 View X-Ray INDICATIONS: NG tube placement TECHNIQUE: One view of the chest was acquired. COMPARISON: Earlier studies from the same day. FINDINGS: Surgical changes and devices: NG tube tip is seen in left upper quadrant below the left hemidiaphragm . Lungs and pleura: No pleural effusions or pneumothorax. Lungs are clear. Mediastinum: Tortuous thoracic aorta is seen. Heart size is enlarged. Bones and chest wall: No suspicious bony lesions. Overlying soft tissues appear unremarkable. IMPRESSION: NG tube tip is seen in the expected location of stomach lumen below left hemidiaphragm. No gross free air. No focal infiltrate or pneumothorax. Reviewed by: Yuriy Mendes MD on 02/15/2021 8:43 PM PDT Approved by: Yuriy Mendes MD on 02/15/2021 8:43 PM PDT Station ID: [id number]
[2021-02-15] MEDS: ATORVASTATIN 40 MG TABLET NG SCH (21:38)
[2021-02-15] MEDS: ASPIRIN CHEW 81 MG TABLET NG SCH (21:38)
[2021-02-15] MEDS: METOPROLOL TARTRATE 25 MG TABLET NG SCH (21:39)
[2021-02-16 05:28] LABS: CALCIUM 8.1 mg/dL (8.5-10.3); CREATININE 0.8 mg/dL (0.6-1.2); POTASSIUM 3.2 mmol/L (3.5-5.0)
[2021-02-16 05:29] LABS: BASOPHILS % (AUTO) 0.4 %; EOSINOPHILS # (AUTO) 0.2 10^3/uL (0.0-0.7); EOSINOPHILS % (AUTO) 1.8 %; HCT - HEMATOCRIT 37.4 % (42.0-52.0); HGB - HEMOGLOBIN 11.4 g/dL (14.0-18.0); LYMPHOCYTES # (AUTO) 1.3 10^3/uL (1.5-3.5); LYMPHOCYTES % (AUTO) 14.5 %; MEAN CORPUSCULAR HEMOGLOBIN 23.5 pg (27.0-31.0); MEAN CORPUSCULAR HGB CONC 30.5 g/dL (32.0-36.0); MEAN CORPUSCULAR VOLUME 77.1 fL (80.0-94.0); MEAN PLATELET VOLUME 10.1 fL (7.4-11.4); MONOCYTES # (AUTO) 0.7 10^3/uL (0.0-1.0); NEUTROPHILS # (AUTO) 6.7 10^3/uL (1.5-6.6); PLT - PLATELET COUNT 246 10^3/uL (130-450); RED BLOOD COUNT 4.85 10^6/uL (4.70-6.10); RED CELL DISTRIBUTION WIDTH 17.4 % (12.0-15.0)
[2021-02-16 05:36] LABS: ALBUMIN/GLOBULIN RATIO 0.8 (1.0-2.2); BILIRUBIN,TOTAL 1.1 mg/dL (0.2-1.0); CREATININE 0.8 mg/dL (0.6-1.2); MAGNESIUM 1.9 mg/dL (1.7-2.8); PHOSPHORUS 2.9 mg/dL (2.5-4.6); POTASSIUM 3.2 mmol/L (3.5-5.0); TOTAL PROTEIN 6.9 g/dL (6.7-8.2)
[2021-02-16] MEDS: INSULIN REGULAR HUMAN 300 UNIT/3 ML VIAL SUBQ SCH ×4 (06:11→23:49)
--- NOTE | 2021-02-16 07:32 | PROVIDER PROGRESS NOTE ---
Subjective - Prog Note Date Prog Note Date: 02/16/21 - Subjective Subjective: Patient appears comfortable in bed. His sister, Joselin, is present at bedside. He is unable to participate in a history due to his aphasia. Current Medications - Current Medications Current Medications: Active Medications Acetaminophen (Acetaminophen 325 Mg Tablet) 650 mg PO Q4HR PRN PRN Reason: Pain 1 to 4 Aspirin (Aspirin Chew 81 Mg Tablet) 81 mg NG DAILY [facility] Last Admin: 02/15/21 21:38 Dose: 81 mg Documented by: Atorvastatin Calcium (Atorvastatin 40 Mg Tablet) 80 mg NG QPM [facility] Last Admin: 02/15/21 21:38 Dose: 80 mg Documented by: Insulin Human Regular (Insulin Regular Human 300 Unit/3 Ml Vial) 1 - 5 unit SUBQ Q6HR [facility]; Protocol Last Admin: 02/16/21 06:11 Dose: Not Given Documented by: Metoprolol Tartrate (Metoprolol Tartrate 25 Mg Tablet) 25 mg NG BID [facility] Last Admin: 02/15/21 21:39 Dose: 25 mg Documented by: Ondansetron HCl (Ondansetron 4 Mg/2 Ml Vial) 4 mg IVP Q6HR PRN PRN Reason: Nausea / Vomiting Potassium Chloride (Potassium Chloride 20 Meq/15 Ml Udc) 40 meq NG ONCE ONE Stop: 02/16/21 08:01 Sodium Chloride (Sodium Chloride Flush 0.9% 10 Ml Syringe) 10 ml IVP PRN PRN PRN Reason: NEEDED PER PROVIDER ORDERS Last Admin: 02/14/21 13:32 Dose: 10 ml Documented by: Sodium Chloride (Sodium Chloride Flush 0.9% 10 Ml Syringe) 10 ml IVP 0100,0900,1700 [facility] Last Admin: 02/15/21 23:48 Dose: Not Given Documented by: Objective - Vital Signs/Intake & Output Reviewed Vital Signs: Yes Vital Signs: Vital Signs x48h Temp Pulse Resp BP Pulse Ox 02/16/21 04:31 37.5 C 67 20 162/90 H 96 02/15/21 23:42 37.5 C 75 20 150/89 H 98 Intake & Output: Intake & Output 02/13/21 02/14/21 02/15/21 02/16/21 23:59 23:59 23:59 23:59 Intake Total 2140.000 2413.750 460 Output Total 300 260 Balance 2140.000 2113.750 200 - Objective General Appearance: positive: No acute distress, Alert Eyes Bilateral: positive: Normal inspection, Conjunctivae nml ENT: positive: ENT inspection nml, Other (NG tube in place.) Neck: positive: Nml inspection Respiratory: positive: No respiratory distress. negative: Wheezes, Rales Cardiovascular: positive: Irregularly irregular. negative: Tachycardia, Systolic murmur Abdomen: positive: Non-tender, No distention. negative: Tenderness Skin: positive: Warm, Dry Extremities: positive: No pedal edema Neurologic/Psychiatric: positive: Facial droop (Right-sided), Other (He is unable to follow commands. He is able to spontaneously move his left upper and lower extremities. He will have occasional minimal movement of his right lower extremity but his right upper extremity is flaccid.) - Lab Results Fish Bones: 02/16/21 04:29 02/16/21 04:29 Other Labs: Lab Results x24hrs 02/16/21 02/16/21 02/16/21 Range/Units 04:29 04:29 04:29 WBC 9.0 (4.8-10.8) x10^3/uL RBC 4.85 (4.70-6.10) 10^6/uL Hgb 11.4 L (14.0-18.0) g/dL Hct 37.4 L (42.0-52.0) % MCV 77.1 L (80.0-94.0) fL MCH 23.5 L (27.0-31.0) pg MCHC 30.5 L (32.0-36.0) g/dL RDW 17.4 H (12.0-15.0) % Plt Count 246 (130-450) 10^3/uL MPV 10.1 (7.4-11.4) fL Neut # (Auto) 6.7 H (1.5-6.6) 10^3/uL Lymph # (Auto) 1.3 L (1.5-3.5) 10^3/uL [place] # (Auto) 0.7 (0.0-1.0) 10^3/uL Eos # (Auto) 0.2 (0.0-0.7) 10^3/uL Baso # (Auto) 0.0 (0.0-0.1) 10^3/uL Absolute Nucleated RBC 0.00 x10^3/uL Nucleated RBC % 0.0 /100WBC Sodium 133 L 133 L (135-145) mmol/L Potassium 3.2 L 3.2 L (3.5-5.0) mmol/L Chloride 103 102 (101-111) mmol/L Carbon Dioxide 23 23 (21-32) mmol/L Anion Gap 7.0 8.0 (6-13) BUN 7 7 (6-20) mg/dL Creatinine 0.8 0.8 (0.6-1.2) mg/dL Estimated GFR (MDRD) 118 118 (>89) Glucose 123 H 123 H (70-100) mg/dL Calcium 8.0 L 8.1 L (8.5-10.3) mg/dL Phosphorus 2.9 (2.5-4.6) mg/dL Magnesium 1.9 (1.7-2.8) mg/dL Iron (45-182) ug/dL TIBC (250-450) ug/dL % Saturation (20-50) % Transferrin (180-329) mg/dL Ferritin (23.9-336.2) ng/mL Total Bilirubin 1.1 H (0.2-1.0) mg/dL AST 157 H (10-42) IU/L ALT 56 (10-60) IU/L Alkaline Phosphatase 44 (42-121) IU/L Total Protein 6.9 (6.7-8.2) g/dL Albumin 3.0 L (3.2-5.5) g/dL Globulin 3.9 (2.1-4.2) g/dL Albumin/Globulin Ratio 0.8 L (1.0-2.2) Prealbumin 13 L (18-45) mg/dL TSH (0.34-5.60) uIU/mL 02/15/21 02/15/21 02/15/21 Range/Units 08:18 08:18 08:18 WBC (4.8-10.8) x10^3/uL RBC (4.70-6.10) 10^6/uL Hgb (14.0-18.0) g/dL Hct (42.0-52.0) % MCV (80.0-94.0) fL MCH (27.0-31.0) pg MCHC (32.0-36.0) g/dL RDW (12.0-15.0) % Plt Count (130-450) 10^3/uL MPV (7.4-11.4) fL Neut # (Auto) (1.5-6.6) 10^3/uL Lymph # (Auto) (1.5-3.5) 10^3/uL [place] # (Auto) (0.0-1.0) 10^3/uL Eos # (Auto) (0.0-0.7) 10^3/uL Baso # (Auto) (0.0-0.1) 10^3/uL Absolute Nucleated RBC x10^3/uL Nucleated RBC % /100WBC Sodium (135-145) mmol/L Potassium (3.5-5.0) mmol/L Chloride (101-111) mmol/L Carbon Dioxide (21-32) mmol/L Anion Gap (6-13) BUN (6-20) mg/dL Creatinine (0.6-1.2) mg/dL Estimated GFR (MDRD) (>89) Glucose (70-100) mg/dL Calcium (8.5-10.3) mg/dL Phosphorus (2.5-4.6) mg/dL Magnesium (1.7-2.8) mg/dL Iron 75 (45-182) ug/dL TIBC 371 (250-450) ug/dL % Saturation 20 (20-50) % Transferrin 265 (180-329) mg/dL Ferritin 22.5 L (23.9-336.2) ng/mL Total Bilirubin (0.2-1.0) mg/dL AST (10-42) IU/L ALT (10-60) IU/L Alkaline Phosphatase (42-121) IU/L Total Protein (6.7-8.2) g/dL Albumin (3.2-5.5) g/dL Globulin (2.1-4.2) g/dL Albumin/Globulin Ratio (1.0-2.2) Prealbumin (18-45) mg/dL TSH 1.03 (0.34-5.60) uIU/mL ABX Reporting Has patient been on IV antibiotics over the past 48 hours?: No Assessment/Plan - Problem List (1) Cerebrovascular accident (CVA) Impression: He unfortunate is evidence of multiple infarcts on the MRI of the brain and this is likely embolic in nature given the atrial fibrillation. His deficits are predominantly right-sided motor deficits and aphasia which includes both receptive and expressive. At this time, we will keep him on aspirin and Lipitor 80 mg in the evening. This will be administered via NG tube which was placed yesterday. We will continue him on tube feeds. He will be monitored closely over next 24 to 48 hours to ensure there is no evidence of edema developing which would require transfer to higher level of care. We will continue with speech therapy, Occupational Therapy, physical therapy. If he continues to have difficulty with dysphagia after two weeks then he will likely need a PEG tube. Qualifiers: CVA mechanism: embolism Precerebral and cerebral artery: middle cerebral artery Laterality of affected vessel: left Qualified Code(s): I63.412 - Cerebral infarction due to embolism of left middle cerebral artery (2) Aphasia Impression: This is secondary to his stroke. He has receptive and expressive aphasia. We will continue with PT, OT, speech therapy. Continue the management of the stroke as mentioned above. (3) Atrial fibrillation Impression: He remains rate controlled on metoprolol. We are holding anticoagulation for 2 weeks due to the stroke before it will need to be initiated. Echocardiogram revealed no obvious thrombus. Qualifiers: Atrial fibrillation type: longstanding persistent Qualified Code(s): I48.11 - Longstanding persistent atrial fibrillation (4) Hypertension Impression: His blood pressure was as high as the 190s yesterday evening but this morning it is around 160 systolic. The goal is to keep it less than 160 over the next few days before further lowering it. We will increase his metoprolol to 25 mg today and his blood pressure remains greater than 160 then we will add lisinopril.
[2021-02-16] MEDS ORDERED: POTASSIUM CHLORIDE 20 MEQ/15 ML UDC NG ONE (08:00)
[2021-02-16] MEDS: ASPIRIN CHEW 81 MG TABLET NG SCH (08:05)
[2021-02-16] MEDS: METOPROLOL TARTRATE 25 MG TABLET NG SCH ×2 (08:05→20:55)
[2021-02-16] MEDS: SODIUM CHLORIDE FLUSH 0.9% 10 ML SYRINGE IVP SCH ×2 (08:13→20:54)
[2021-02-16] MEDS: ACETAMINOPHEN 325 MG TABLET PO PRN (11:16)
[2021-02-16] MEDS: ATORVASTATIN 40 MG TABLET NG SCH (20:55)
[2021-02-17] MEDS: SODIUM CHLORIDE FLUSH 0.9% 10 ML SYRINGE IVP SCH ×4 (03:05→23:44)
[2021-02-17] MEDS: INSULIN REGULAR HUMAN 300 UNIT/3 ML VIAL SUBQ SCH ×4 (05:44→23:45)
[2021-02-17 06:21] LABS: BASOPHILS % (AUTO) 0.2 %; EOSINOPHILS # (AUTO) 0.2 10^3/uL (0.0-0.7); EOSINOPHILS % (AUTO) 2.3 %; HCT - HEMATOCRIT 36.9 % (42.0-52.0); HGB - HEMOGLOBIN 11.3 g/dL (14.0-18.0); LYMPHOCYTES # (AUTO) 1.2 10^3/uL (1.5-3.5); LYMPHOCYTES % (AUTO) 13.4 %; MEAN CORPUSCULAR HEMOGLOBIN 23.4 pg (27.0-31.0); MEAN CORPUSCULAR HGB CONC 30.6 g/dL (32.0-36.0); MEAN CORPUSCULAR VOLUME 76.4 fL (80.0-94.0); MEAN PLATELET VOLUME 9.7 fL (7.4-11.4); MONOCYTES # (AUTO) 0.8 10^3/uL (0.0-1.0); MONOCYTES % (AUTO) 9.1 %; NEUTROPHILS # (AUTO) 6.9 10^3/uL (1.5-6.6); NEUTROPHILS % (AUTO) 74.8 %; PLT - PLATELET COUNT 229 10^3/uL (130-450); RED BLOOD COUNT 4.83 10^6/uL (4.70-6.10); RED CELL DISTRIBUTION WIDTH 17.7 % (12.0-15.0); WHITE BLOOD COUNT 9.2 x10^3/uL (4.8-10.8)
[2021-02-17 06:31] LABS: CREATININE 0.8 mg/dL (0.6-1.2); POTASSIUM 3.6 mmol/L (3.5-5.0)
--- NOTE | 2021-02-17 07:40 | PROVIDER PROGRESS NOTE ---
Subjective - Prog Note Date Prog Note Date: 02/17/21 - Subjective Subjective: He is still unable to speak in a conversation. He does appear more interactive. His sister is present at bedside and she also feels that since yesterday afternoon, he has been more interactive. Current Medications - Current Medications Current Medications: Active Medications Acetaminophen (Acetaminophen 325 Mg Tablet) 650 mg PO Q4HR PRN PRN Reason: Pain 1 to 4 Last Admin: 02/16/21 11:16 Dose: 650 mg Documented by: Aspirin (Aspirin Chew 81 Mg Tablet) 81 mg NG DAILY [facility] Last Admin: 02/17/21 08:18 Dose: 81 mg Documented by: Atorvastatin Calcium (Atorvastatin 40 Mg Tablet) 80 mg NG QPM [facility] Last Admin: 02/16/21 20:55 Dose: 80 mg Documented by: Sodium Chloride (Normal Saline 0.9%) 1,000 mls @ 100 mls/hr IV .Q10H [facility] Stop: 02/17/21 17:59 Last Admin: 02/17/21 08:04 Dose: 100 mls/hr Documented by: Insulin Human Regular (Insulin Regular Human 300 Unit/3 Ml Vial) 1 - 5 unit SUBQ Q6HR [facility]; Protocol Last Admin: 02/17/21 12:07 Dose: Not Given Documented by: Metoprolol Tartrate (Metoprolol Tartrate 25 Mg Tablet) 25 mg NG BID [facility] Last Admin: 02/17/21 08:17 Dose: 25 mg Documented by: Ondansetron HCl (Ondansetron 4 Mg/2 Ml Vial) 4 mg IVP Q6HR PRN PRN Reason: Nausea / Vomiting Sodium Chloride (Sodium Chloride Flush 0.9% 10 Ml Syringe) 10 ml IVP PRN PRN PRN Reason: NEEDED PER PROVIDER ORDERS Last Admin: 02/14/21 13:32 Dose: 10 ml Documented by: Sodium Chloride (Sodium Chloride Flush 0.9% 10 Ml Syringe) 10 ml IVP 0100,0900,1700 [facility] Last Admin: 02/17/21 08:18 Dose: 10 ml Documented by: Objective - Vital Signs/Intake & Output Reviewed Vital Signs: Yes Vital Signs: Vital Signs x48h Temp Pulse Resp BP Pulse Ox 02/17/21 04:12 37.5 C 81 18 147/88 H 96 02/16/21 23:51 37.6 C 64 20 144/88 H 98 Intake & Output: Intake & Output 02/14/21 02/15/21 02/16/21 02/17/21 23:59 23:59 23:59 23:59 Intake Total 2140.000 2413.750 2532 Output Total 300 835 360 Balance 2140.000 2113.750 5967 -360 - Objective General Appearance: positive: No acute distress, Alert Eyes Bilateral: positive: Normal inspection, PERRL, Conjunctivae nml ENT: positive: ENT inspection nml, Other (NG tube in place.) Neck: positive: Nml inspection Respiratory: positive: No respiratory distress. negative: Wheezes, Rales Cardiovascular: positive: Irregularly irregular. negative: Tachycardia, Systolic murmur Abdomen: positive: Non-tender, No distention. negative: Tenderness Skin: positive: Warm, Dry Extremities: positive: No pedal edema Neurologic/Psychiatric: positive: Facial droop (Right-sided facial droop noted.), Other (He still does not follow commands consistently. He is able to move his left upper and lower extremities spontaneously. He has increased movement his right lower extremity today especially proximally. He is still unable to move his right upper extremity.) - Lab Results Fish Bones: 02/17/21 05:28 02/17/21 05:28 Other Labs: Lab Results x24hrs 02/17/21 02/17/21 02/17/21 Range/Units 05:39 05:28 05:28 WBC 9.2 (4.8-10.8) x10^3/uL RBC 4.83 (4.70-6.10) 10^6/uL Hgb 11.3 L (14.0-18.0) g/dL Hct 36.9 L (42.0-52.0) % MCV 76.4 L (80.0-94.0) fL MCH 23.4 L (27.0-31.0) pg MCHC 30.6 L (32.0-36.0) g/dL RDW 17.7 H (12.0-15.0) % Plt Count 229 (130-450) 10^3/uL MPV 9.7 (7.4-11.4) fL Neut # (Auto) 6.9 H (1.5-6.6) 10^3/uL Lymph # (Auto) 1.2 L (1.5-3.5) 10^3/uL [place] # (Auto) 0.8 (0.0-1.0) 10^3/uL Eos # (Auto) 0.2 (0.0-0.7) 10^3/uL Baso # (Auto) 0.0 (0.0-0.1) 10^3/uL Absolute Nucleated RBC 0.00 x10^3/uL Nucleated RBC % 0.0 /100WBC Sodium 132 L (135-145) mmol/L Potassium 3.6 (3.5-5.0) mmol/L Chloride 101 (101-111) mmol/L Carbon Dioxide 23 (21-32) mmol/L Anion Gap 8.0 (6-13) BUN 9 (6-20) mg/dL Creatinine 0.8 (0.6-1.2) mg/dL Estimated GFR (MDRD) 118 (>89) Glucose 133 H (70-100) mg/dL POC Whole Bld Glucose 120 H (70 - 100) mg/dL Calcium 8.0 L (8.5-10.3) mg/dL 02/16/21 02/16/21 02/16/21 Range/Units 23:44 18:02 12:21 WBC (4.8-10.8) x10^3/uL RBC (4.70-6.10) 10^6/uL Hgb (14.0-18.0) g/dL Hct (42.0-52.0) % MCV (80.0-94.0) fL MCH (27.0-31.0) pg MCHC (32.0-36.0) g/dL RDW (12.0-15.0) % Plt Count (130-450) 10^3/uL MPV (7.4-11.4) fL Neut # (Auto) (1.5-6.6) 10^3/uL Lymph # (Auto) (1.5-3.5) 10^3/uL [place] # (Auto) (0.0-1.0) 10^3/uL Eos # (Auto) (0.0-0.7) 10^3/uL Baso # (Auto) (0.0-0.1) 10^3/uL Absolute Nucleated RBC x10^3/uL Nucleated RBC % /100WBC Sodium (135-145) mmol/L Potassium (3.5-5.0) mmol/L Chloride (101-111) mmol/L Carbon Dioxide (21-32) mmol/L Anion Gap (6-13) BUN (6-20) mg/dL Creatinine (0.6-1.2) mg/dL Estimated GFR (MDRD) (>89) Glucose (70-100) mg/dL POC Whole Bld Glucose 128 H 98 99 (70 - 100) mg/dL Calcium (8.5-10.3) mg/dL 02/16/21 02/15/21 02/15/21 Range/Units 06:11 23:48 17:40 WBC (4.8-10.8) x10^3/uL RBC (4.70-6.10) 10^6/uL Hgb (14.0-18.0) g/dL Hct (42.0-52.0) % MCV (80.0-94.0) fL MCH (27.0-31.0) pg MCHC (32.0-36.0) g/dL RDW (12.0-15.0) % Plt Count (130-450) 10^3/uL MPV (7.4-11.4) fL Neut # (Auto) (1.5-6.6) 10^3/uL Lymph # (Auto) (1.5-3.5) 10^3/uL [place] # (Auto) (0.0-1.0) 10^3/uL Eos # (Auto) (0.0-0.7) 10^3/uL Baso # (Auto) (0.0-0.1) 10^3/uL Absolute Nucleated RBC x10^3/uL Nucleated RBC % /100WBC Sodium (135-145) mmol/L Potassium (3.5-5.0) mmol/L Chloride (101-111) mmol/L Carbon Dioxide (21-32) mmol/L Anion Gap (6-13) BUN (6-20) mg/dL Creatinine (0.6-1.2) mg/dL Estimated GFR (MDRD) (>89) Glucose (70-100) mg/dL POC Whole Bld Glucose 119 H 99 89 (70 - 100) mg/dL Calcium (8.5-10.3) mg/dL 02/15/21 02/15/21 02/14/21 Range/Units 11:15 05:33 23:34 WBC (4.8-10.8) x10^3/uL RBC (4.70-6.10) 10^6/uL Hgb (14.0-18.0) g/dL Hct (42.0-52.0) % MCV (80.0-94.0) fL MCH (27.0-31.0) pg MCHC (32.0-36.0) g/dL RDW (12.0-15.0) % Plt Count (130-450) 10^3/uL MPV (7.4-11.4) fL Neut # (Auto) (1.5-6.6) 10^3/uL Lymph # (Auto) (1.5-3.5) 10^3/uL [place] # (Auto) (0.0-1.0) 10^3/uL Eos # (Auto) (0.0-0.7) 10^3/uL Baso # (Auto) (0.0-0.1) 10^3/uL Absolute Nucleated RBC x10^3/uL Nucleated RBC % /100WBC Sodium (135-145) mmol/L Potassium (3.5-5.0) mmol/L Chloride (101-111) mmol/L Carbon Dioxide (21-32) mmol/L Anion Gap (6-13) BUN (6-20) mg/dL Creatinine (0.6-1.2) mg/dL Estimated GFR (MDRD) (>89) Glucose (70-100) mg/dL POC Whole Bld Glucose 93 101 H 104 H (70 - 100) mg/dL Calcium (8.5-10.3) mg/dL 02/14/21 Range/Units 17:49 WBC (4.8-10.8) x10^3/uL RBC (4.70-6.10) 10^6/uL Hgb (14.0-18.0) g/dL Hct (42.0-52.0) % MCV (80.0-94.0) fL MCH (27.0-31.0) pg MCHC (32.0-36.0) g/dL RDW (12.0-15.0) % Plt Count (130-450) 10^3/uL MPV (7.4-11.4) fL Neut # (Auto) (1.5-6.6) 10^3/uL Lymph # (Auto) (1.5-3.5) 10^3/uL [place] # (Auto) (0.0-1.0) 10^3/uL Eos # (Auto) (0.0-0.7) 10^3/uL Baso # (Auto) (0.0-0.1) 10^3/uL Absolute Nucleated RBC x10^3/uL Nucleated RBC % /100WBC Sodium (135-145) mmol/L Potassium (3.5-5.0) mmol/L Chloride (101-111) mmol/L Carbon Dioxide (21-32) mmol/L Anion Gap (6-13) BUN (6-20) mg/dL Creatinine (0.6-1.2) mg/dL Estimated GFR (MDRD) (>89) Glucose (70-100) mg/dL POC Whole Bld Glucose 88 (70 - 100) mg/dL Calcium (8.5-10.3) mg/dL Assessment/Plan - Problem List (1) Cerebrovascular accident (CVA) Impression: MRI confirmed multiple infarcts in the left MCA distribution. He continues to have significant right-sided motor deficits and aphasia which includes both receptive and expressive although he does appear to be more interactive today. I suspect if he remained stable over next 24 hours he will be medically cleared tomorrow to go to inpatient rehab. We will keep him on aspirin and Lipitor 80 mg in the evening. Continue tube feeds via NG tube. Speech did see him again today and they felt there was no improvement whatsoever. He will need a PEG tube and I have spoke to general surgery and the family regarding this. Continue to work with PT and OT. Qualifiers: CVA mechanism: embolism Precerebral and cerebral artery: middle cerebral artery Laterality of affected vessel: left Qualified Code(s): I63.412 - Cerebral infarction due to embolism of left middle cerebral artery (2) Aphasia Impression: He continues to have expressive and receptive aphasia. This is secondary to stroke as mentioned above. The goal is to get him to inpatient rehab. (3) Atrial fibrillation Impression: He remains rate controlled on the metoprolol. We are continuing aspirin for the time being and he will be initiated on anticoagulation February 28 which will be 2 weeks post stroke as recommended by neurology. Qualifiers: Atrial fibrillation type: longstanding persistent Qualified Code(s): I48.11 - Longstanding persistent atrial fibrillation (4) Hypertension Impression: His blood pressure is better controlled today with systolics in the 140s. Continue the current dose of metoprolol and will likely add a second antihyp ertensive over the next 2 days to further lower his blood pressure as recommended by neurology after 5 days post stroke.
[2021-02-17] MEDS ORDERED: SODIUM CHLORIDE 0.9% 1,000 ML IV SCH (08:00)
[2021-02-17] MEDS: METOPROLOL TARTRATE 25 MG TABLET NG SCH ×2 (08:17→21:05)
[2021-02-17] MEDS: ASPIRIN CHEW 81 MG TABLET NG SCH (08:18)
[2021-02-17] MEDS: ATORVASTATIN 40 MG TABLET NG SCH (21:05)
[2021-02-18] MEDS: INSULIN REGULAR HUMAN 300 UNIT/3 ML VIAL SUBQ SCH ×3 (05:43→19:32)
[2021-02-18 07:21] LABS: BASOPHILS % (AUTO) 0.2 %; EOSINOPHILS # (AUTO) 0.2 10^3/uL (0.0-0.7); EOSINOPHILS % (AUTO) 2.2 %; HCT - HEMATOCRIT 37.2 % (42.0-52.0); HGB - HEMOGLOBIN 11.8 g/dL (14.0-18.0); LYMPHOCYTES # (AUTO) 1.1 10^3/uL (1.5-3.5); LYMPHOCYTES % (AUTO) 10.3 %; MEAN CORPUSCULAR HEMOGLOBIN 24.2 pg (27.0-31.0); MEAN CORPUSCULAR HGB CONC 31.7 g/dL (32.0-36.0); MEAN CORPUSCULAR VOLUME 76.2 fL (80.0-94.0); MEAN PLATELET VOLUME 9.8 fL (7.4-11.4); MONOCYTES # (AUTO) 0.9 10^3/uL (0.0-1.0); MONOCYTES % (AUTO) 9.1 %; NEUTROPHILS % (AUTO) 77.9 %; PLT - PLATELET COUNT 237 10^3/uL (130-450); RED BLOOD COUNT 4.88 10^6/uL (4.70-6.10); RED CELL DISTRIBUTION WIDTH 17.7 % (12.0-15.0); WHITE BLOOD COUNT 10.2 x10^3/uL (4.8-10.8)
[2021-02-18 07:28] LABS: ALBUMIN 2.9 g/dL (3.2-5.5); ALBUMIN/GLOBULIN RATIO 0.7 (1.0-2.2); BILIRUBIN,TOTAL 0.8 mg/dL (0.2-1.0); CALCIUM 8.3 mg/dL (8.5-10.3); CREATININE 0.7 mg/dL (0.6-1.2); MAGNESIUM 1.8 mg/dL (1.7-2.8); PHOSPHORUS 3.7 mg/dL (2.5-4.6); POTASSIUM 3.9 mmol/L (3.5-5.0); TOTAL PROTEIN 6.9 g/dL (6.7-8.2)
[2021-02-18] MEDS: lisinopriL 20 MG TABLET PO SCH (08:24)
[2021-02-18] MEDS: ASPIRIN CHEW 81 MG TABLET NG SCH (08:25)
[2021-02-18] MEDS: METOPROLOL TARTRATE 25 MG TABLET NG SCH (08:25)
[2021-02-18] MEDS: SODIUM CHLORIDE FLUSH 0.9% 10 ML SYRINGE IVP SCH ×2 (08:34→17:12)
--- NOTE | 2021-02-18 10:43 | PROVIDER PROGRESS NOTE ---
Assessment/Plan - Problem List (1) Cerebrovascular accident (CVA) Qualifiers: CVA mechanism: embolism Precerebral and cerebral artery: middle cerebral artery Laterality of affected vessel: left Qualified Code(s): I63.412 - Cerebral infarction due to embolism of left middle cerebral artery Assessment/Plan: Right-sided weakness persists. Patient is aphasic. He seems to have difficulties with comprehension Patient working with PT and OT. PEG tube placement today 02/18/21. Continue baby aspirin and Lipitor 80 mg p.o. q. at bedtime Discharge coordinators assisting in placement. Anticipating discharge to a rehab facility 0n 02/21/21 (2) Aphasia Assessment/Plan: He continues to have expressive and receptive aphasia. This is secondary to CVA. Inpatient rehab anticipated in 3 days. (3) Hypertension Assessment/Plan: Better controlled. Systolic blood pressure 139. On metoprolol tartrate 25 mg via NG tube twice daily Lisinopril 20 mg daily (4) Atrial fibrillation Qualifiers: Atrial fibrillation type: longstanding persistent Qualified Code(s): I48.11 - Longstanding persistent atrial fibrillation Assessment/Plan: He remains rate controlled on the metoprolol. We are continuing aspirin for the time being and he will be initiated on anticoagulation February 28 which will be 2 weeks post stroke as recommended by neurology. - Current Meds Current Meds: Current Medications Generic Name Dose Route Start Last Admin Trade Name Freq PRN Reason Stop Dose Admin Acetaminophen 650 mg 02/14/21 07:43 02/16/21 11:16 Acetaminophen 325 Mg Tablet PO 650 mg Q4HR PRN Administration Pain 1 to 4 Aspirin 81 mg 02/15/21 11:00 02/18/21 08:25 Aspirin Chew 81 Mg Tablet NG 81 mg DAILY MANNY Administration Atorvastatin Calcium 80 mg 02/15/21 21:00 02/17/21 21:05 Atorvastatin 40 Mg Tablet NG 80 mg QPM MANNY Administration Insulin Human Regular 1 - 5 unit 02/15/21 12:00 02/18/21 05:43 Insulin Regular Human 300 Unit/3 Ml Vial SUBQ Not Given Q6HR MANNY Protocol Lisinopril 20 mg 02/18/21 09:00 02/18/21 08:24 Lisinopril 20 Mg Tablet PO 20 mg DAILY MANNY Administration Metoprolol Tartrate 25 mg 02/15/21 21:00 02/18/21 08:25 Metoprolol Tartrate 25 Mg Tablet NG 25 mg BID MANNY Administration Sodium Chloride 10 ml 02/14/21 07:43 02/14/21 13:32 Sodium Chloride Flush 0.9% 10 Ml Syringe IVP 10 ml PRN PRN Administration NEEDED PER PROVIDER ORDERS Sodium Chloride 10 ml 02/14/21 09:00 02/18/21 08:34 Sodium Chloride Flush 0.9% 10 Ml Syringe IVP 10 ml 0100,0900,1700 MANNY Administration - Lab Result Fish Bone Diagrams: 02/18/21 06:42 02/18/21 06:42 - Additional Planning My Orders: My Active Orders 02/19/21 05:00 BMP - BASIC METABOLIC PANEL [CHEM] DAILYLAB CBC - COMP BLD CT W/AUTO DIFF [HEME] DAILYLAB Subjective - Subjective Patient Reports: Other (Seated in bedside chair at time of exam working with PT/OT. He is awake and alert. He has difficulties following command. There might be some difficulty with comprehension. Right-sided weakness persist.) Objective Vital Signs: Vital Signs - 24 hr 02/17/21 02/17/21 02/17/21 13:00 16:06 18:16 Temperature 36.5 C 37.2 C Heart Rate [ 64 79 Brachial] Respiratory 18 20 Rate Blood Pressure Blood Pressure 130/85 H 176/83 H 145/64 H [Left Brachial artery] Blood Pressure [Right Brachial artery] O2 Saturation 98 99 02/17/21 02/17/21 02/17/21 20:03 21:05 23:43 Temperature 37.7 C 37.6 C Heart Rate [ 74 66 Brachial] Respiratory 20 18 Rate Blood Pressure 133/77 H Blood Pressure 133/77 H 176/73 H [Left Brachial artery] Blood Pressure [Right Brachial artery] O2 Saturation 98 97 02/17/21 02/18/21 02/18/21 23:53 05:00 08:25 Temperature 36.9 C Heart Rate [ 81 Brachial] Respiratory 20 Rate Blood Pressure 147/86 H Blood Pressure 164/80 H 183/81 H [Left Brachial artery] Blood Pressure [Right Brachial artery] O2 Saturation 98 02/18/21 09:00 Temperature 37 C Heart Rate [ 77 Brachial] Respiratory 22 Rate Blood Pressure Blood Pressure [Left Brachial artery] Blood Pressure 147/86 H [Right Brachial artery] O2 Saturation 97 Oxygen O2 Source Room air I&O (Last 24 Hrs): Intake and Output Totals x24h 02/16/21 02/17/21 02/18/21 23:59 23:59 23:59 Intake Total 2532 810 1061 Output Total 835 1135 650 Balance 1697 -325 411 General: Alert, No acute distress, Other (Cannot assess Orientation to place, time or reason. Though awake unable to follow commands appropriately. Some difficulty with comprehension. Aphasic.) HEENT: PERRLA, EOMI Neck: Supple, No JVD Neuro: Alert, Focal Deficits (Right-sided weakness), Other (Aphasia. Difficulty with comprehension.) Cardiovascular: Other (Irregularly irregular Rhythm) Respiratory: Chest non-tender, No respiratory distress, Breath sounds nml Abdomen: Normal bowel sounds, Soft, No tenderness, No masses Extremities: No clubbing, No cyanosis, No edema, No tenderness/swelling Skin: No rashes, No breakdown, No significant lesion - Results Results: Laboratory Results WBC 10.2 x10^3/uL (4.8-10.8) 02/18/21 06:42 RBC 4.88 10^6/uL (4.70-6.10) 02/18/21 06:42 Hgb 11.8 g/dL (14.0-18.0) L 02/18/21 06:42 Hct 37.2 % (42.0-52.0) L 02/18/21 06:42 MCV 76.2 fL (80.0-94.0) L 02/18/21 06:42 MCH 24.2 pg (27.0-31.0) L 02/18/21 06:42 MCHC 31.7 g/dL (32.0-36.0) L 02/18/21 06:42 RDW 17.7 % (12.0-15.0) H 02/18/21 06:42 Plt Count 237 10^3/uL (130-450) 02/18/21 06:42 MPV 9.8 fL (7.4-11.4) 02/18/21 06:42 Neut # (Auto) 8.0 10^3/uL (1.5-6.6) H 02/18/21 06:42 Lymph # (Auto) 1.1 10^3/uL (1.5-3.5) L 02/18/21 06:42 [place] # (Auto) 0.9 10^3/uL (0.0-1.0) 02/18/21 06:42 Eos # (Auto) 0.2 10^3/uL (0.0-0.7) 02/18/21 06:42 Baso # (Auto) 0.0 10^3/uL (0.0-0.1) 02/18/21 06:42 Absolute Nucleated RBC 0.00 x10^3/uL 02/18/21 06:42 Nucleated RBC % 0.0 /100WBC 02/18/21 06:42 ESR 1 mm/Hr (0-20) 02/14/21 06:14 PT 12.6 secs (9.9-12.6) 02/14/21 06:14 INR 1.1 (0.8-1.2) 02/14/21 06:14 APTT 23.1 secs (24.9-33.3) L 02/14/21 06:14 Sodium 133 mmol/L (135-145) L 02/18/21 06:42 Potassium 3.9 mmol/L (3.5-5.0) 02/18/21 06:42 Chloride 101 mmol/L (101-111) 02/18/21 06:42 Carbon Dioxide 24 mmol/L (21-32) 02/18/21 06:42 Anion Gap 8.0 (6-13) 02/18/21 06:42 BUN 9 mg/dL (6-20) 02/18/21 06:42 Creatinine 0.7 mg/dL (0.6-1.2) 02/18/21 06:42 Estimated GFR (MDRD) 138 (>89) 02/18/21 06:42 Glucose 111 mg/dL (70-100) H 02/18/21 06:42 POC Whole Bld Glucose 108 mg/dL (70 - 100) H 02/18/21 05:33 Estimat Average Glucose 111 mg/dL (70-100) H 02/14/21 08:16 Hemoglobin A1c % 5.5 % (4.27-6.07) 02/14/21 08:16 Calcium 8.3 mg/dL (8.5-10.3) L 02/18/21 06:42 Phosphorus 3.7 mg/dL (2.5-4.6) 02/18/21 06:42 Magnesium 1.8 mg/dL (1.7-2.8) 02/18/21 06:42 Iron 75 ug/dL (45-182) 02/15/21 08:18 TIBC 371 ug/dL (250-450) 02/15/21 08:18 % Saturation 20 % (20-50) 02/15/21 08:18 Transferrin 265 mg/dL (180-329) 02/15/21 08:18 Ferritin 22.5 ng/mL (23.9-336.2) L 02/15/21 08:18 Total Bilirubin 0.8 mg/dL (0.2-1.0) 02/18/21 06:42 AST 79 IU/L (10-42) H 02/18/21 06:42 ALT 51 IU/L (10-60) 02/18/21 06:42 Alkaline Phosphatase 46 IU/L (42-121) 02/18/21 06:42 Total Protein 6.9 g/dL (6.7-8.2) 02/18/21 06:42 Albumin 2.9 g/dL (3.2-5.5) L 02/18/21 06:42 Globulin 4.0 g/dL (2.1-4.2) 02/18/21 06:42 Albumin/Globulin Ratio 0.7 (1.0-2.2) L 02/18/21 06:42 Prealbumin 13 mg/dL (18-45) L 02/18/21 06:42 Triglycerides 55 mg/dL (-149) 02/15/21 05:28 Cholesterol 137 mg/dL (-199) 02/15/21 05:28 LDL Cholesterol, Calc 61 mg/dL (-129) 02/15/21 05:28 VLDL Cholesterol 11 mg/dL 02/15/21 05:28 HDL Cholesterol 65 mg/dL (60-) 02/15/21 05:28 LDL/HDL Ratio 0.9 (<3.6) 02/15/21 05:28 Cholesterol/HDL Ratio 2.1 (<5.0) 02/15/21 05:28 Lipase 30 U/L (22-51) 02/14/21 06:14 TSH 1.03 uIU/mL (0.34-5.60) 02/15/21 08:18 Nasal Adenovirus (PCR) NOT DETECTED 02/14/21 06:30 Nasal B. parapertussis DNA (PCR) NOT DETECTED 02/14/21 06:30 Nasal Coronavir 229E PCR NOT DETECTED 02/14/21 06:30 Nasal Coronavir HKU1 PCR NOT DETECTED 02/14/21 06:30 Nasal Coronavir NL63 PCR NOT DETECTED 02/14/21 06:30 Nasal Coronavir OC43 PCR NOT DETECTED 02/14/21 06:30 Nasal Enterovir/Rhinovir PCR NOT DETECTED 02/14/21 06:30 Nasal Influenza B PCR NOT DETECTED 02/14/21 06:30 Nasal Influenza A PCR NOT DETECTED 02/14/21 06:30 Nasal Parainfluen 1 PCR NOT DETECTED 02/14/21 06:30 Nasal Parainfluen 2 PCR NOT DETECTED 02/14/21 06:30 Nasal Parainfluen 3 PCR NOT DETECTED 02/14/21 06:30 Nasal Parainfluen 4 PCR NOT DETECTED 02/14/21 06:30 Nasal RSV (PCR) NOT DETECTED 02/14/21 06:30 Nasal B.pertussis DNA PCR NOT DETECTED 02/14/21 06:30 Nasal C.pneumoniae (PCR) NOT DETECTED 02/14/21 06:30 [place] Human Metapneumo PCR NOT DETECTED 02/14/21 06:30 Nasal M.pneumoniae (PCR) NOT DETECTED 02/14/21 06:30 Nasal SARS-CoV-2 (PCR) NOT DETECTED 02/14/21 06:30 Ethyl Alcohol < 5.0 mg/dL 02/14/21 06:14 ABX Reporting Has patient been on IV antibiotics over the past 48 hours?: No
--- NOTE | 2021-02-18 15:24 | ANESTHESIA ---
Pre-Anesthesia VS, & Labs - Diagnosis dysphagia after cva - Procedure peg tube placement Vital Signs: Temp Pulse Resp BP Pulse Ox 37.1 C 60 20 139/89 H 98 02/18/21 15:06 02/18/21 15:06 02/18/21 15:06 02/18/21 15:06 02/18/21 15:06 Height: 6 ft Weight (kg): 145 kg Body Mass Index: 43.3 BMI Classification: Morbidly Obese - NPO >8 hours Last Food Intake: tube feeding 24 hours ago - Lab Results Current Lab Results: Laboratory Tests 02/18/21 11:15: POC Whole Bld Glucose 109 H 02/18/21 06:42: Sodium 133 L, Potassium 3.9, Chloride 101, Carbon Dioxide 24, Anion Gap 8.0, BUN 9, Creatinine 0.7, Estimated GFR (MDRD) 138, Glucose 111 H, Calcium 8.3 L, Phosphorus 3.7, Magnesium 1.8, Total Bilirubin 0.8, AST 79 H, ALT 51, Alkaline Phosphatase 46, Total Protein 6.9, Albumin 2.9 L, Globulin 4.0, Albumin/Globulin Ratio 0.7 L, Prealbumin 13 L 02/18/21 06:42: WBC 10.2, RBC 4.88, Hgb 11.8 L, Hct 37.2 L, MCV 76.2 L, MCH 24.2 L, MCHC 31.7 L, RDW 17.7 H, Plt Count 237, MPV 9.8, Neut # (Auto) 8.0 H, Lymph # (Auto) 1.1 L, [place] # (Auto) 0.9, Eos # (Auto) 0.2, Baso # (Auto) 0.0, Absolute Nucleated RBC 0.00, Nucleated RBC % 0.0 02/18/21 05:33: POC Whole Bld Glucose 108 H 02/17/21 23:40: POC Whole Bld Glucose 121 H 02/17/21 11:39: POC Whole Bld Glucose 117 H 02/17/21 05:39: POC Whole Bld Glucose 120 H 02/17/21 05:28: Sodium 132 L, Potassium 3.6, Chloride 101, Carbon Dioxide 23, Anion Gap 8.0, BUN 9, Creatinine 0.8, Estimated GFR (MDRD) 118, Glucose 133 H, Calcium 8.0 L 02/17/21 05:28: WBC 9.2, RBC 4.83, Hgb 11.3 L, Hct 36.9 L, MCV 76.4 L, MCH 23.4 L, MCHC 30.6 L, RDW 17.7 H, Plt Count 229, MPV 9.7, Neut # (Auto) 6.9 H, Lymph # (Auto) 1.2 L, [place] # (Auto) 0.8, Eos # (Auto) 0.2, Baso # (Auto) 0.0, Absolute Nucleated RBC 0.00, Nucleated RBC % 0.0 02/16/21 23:44: POC Whole Bld Glucose 128 H 02/16/21 18:02: POC Whole Bld Glucose 98 02/16/21 12:21: POC Whole Bld Glucose 99 02/16/21 06:11: POC Whole Bld Glucose 119 H 02/16/21 04:29: Sodium 133 L, Potassium 3.2 L, Chloride 103, Carbon Dioxide 23, Anion Gap 7.0, BUN 7, Creatinine 0.8, Estimated GFR (MDRD) 118, Glucose 123 H, Calcium 8.0 L, Phosphorus 2.9, Magnesium 1.9, Total Bilirubin 1.1 H, AST 157 H, ALT 56, Alkaline Phosphatase 44, Total Protein 6.9, Albumin 3.0 L, Globulin 3.9, Albumin/Globulin Ratio 0.8 L, Prealbumin 13 L 02/16/21 04:29: Sodium 133 L, Potassium 3.2 L, Chloride 102, Carbon Dioxide 23, Anion Gap 8.0, BUN 7, Creatinine 0.8, Estimated GFR (MDRD) 118, Glucose 123 H, Calcium 8.1 L 02/16/21 04:29: WBC 9.0, RBC 4.85, Hgb 11.4 L, Hct 37.4 L, MCV 77.1 L, MCH 23.5 L, MCHC 30.5 L, RDW 17.4 H, Plt Count 246, MPV 10.1, Neut # (Auto) 6.7 H, Lymph # (Auto) 1.3 L, [place] # (Auto) 0.7, Eos # (Auto) 0.2, Baso # (Auto) 0.0, Absolute Nucleated RBC 0.00, Nucleated RBC % 0.0 02/15/21 23:48: POC Whole Bld Glucose 99 02/15/21 17:40: POC Whole Bld Glucose 89 02/15/21 11:15: POC Whole Bld Glucose 93 02/15/21 08:18: TSH 1.03 02/15/21 08:18: Ferritin 22.5 L 02/15/21 08:18: Iron 75, TIBC 371, % Saturation 20, Transferrin 265 02/15/21 05:33: POC Whole Bld Glucose 101 H 02/15/21 05:28: WBC 8.7, RBC 4.78, Hgb 11.2 L, Hct 36.6 L, MCV 76.6 L, MCH 23.4 L, MCHC 30.6 L, RDW 17.8 H, Plt Count 246, MPV 9.5, Neut # (Auto) 6.3, Lymph # (Auto) 1.6, [place] # (Auto) 0.7, Eos # (Auto) 0.1, Baso # (Auto) 0.0, Absolute Nucleated RBC 0.00, Nucleated RBC % 0.0 02/15/21 05:28: Sodium 138, Potassium 3.2 L, Chloride 107, Carbon Dioxide 23, Anion Gap 8.0, BUN 9, Creatinine 0.8, Estimated GFR (MDRD) 118, Glucose 106 H, Calcium 8.3 L, Triglycerides 55, Cholesterol 137, LDL Cholesterol, Calc 61, VLDL Cholesterol 11, HDL Cholesterol 65, LDL/HDL Ratio 0.9, Cholesterol/HDL Ratio 2.1 02/14/21 23:34: POC Whole Bld Glucose 104 H 02/14/21 17:49: POC Whole Bld Glucose 88 02/14/21 08:16: Estimat Average Glucose 111 H, Hemoglobin A1c % 5.5 02/14/21 06:14: PT 12.6, INR 1.1, APTT 23.1 L 02/14/21 06:14: Sodium 139, Potassium 4.5, Chloride 106, Carbon Dioxide 19 L, Anion Gap 14.0 H, BUN 15, Creatinine 1.1, Estimated GFR (MDRD) 82 L, Glucose 117 H, Calcium 8.8, Magnesium 1.9, Total Bilirubin 1.2 H, AST 77 H, ALT 26, Alkaline Phosphatase 53, Total Protein 8.1, Albumin 3.7, Globulin 4.4 H, Albumin/Globulin Ratio 0.8 L, Lipase 30, Ethyl Alcohol < 5.0 02/14/21 06:14: ESR 1 02/14/21 06:14: WBC 13.1 H, RBC 5.05, Hgb 12.0 L, Hct 39.9 L, MCV 79.0 L, MCH 23.8 L, MCHC 30.1 L, RDW 18.4 H, Plt Count 282, MPV 9.7, Neut # (Auto) 12.0 H, Lymph # (Auto) 0.4 L, [place] # (Auto) 0.6, Eos # (Auto) 0.0, Baso # (Auto) 0.0, Absolute Nucleated RBC 0.00, Nucleated RBC % 0.0 Fish Bones: 02/18/21 06:42 02/18/21 06:42 Home Medications and Allergies Active Medications Acetaminophen (Acetaminophen 325 Mg Tablet) 650 mg PO Q4HR PRN PRN Reason: Pain 1 to 4 Last Admin: 02/16/21 11:16 Dose: 650 mg Documented by: Aspirin (Aspirin Chew 81 Mg Tablet) 81 mg NG DAILY [facility] Last Admin: 02/18/21 08:25 Dose: 81 mg Documented by: Atorvastatin Calcium (Atorvastatin 40 Mg Tablet) 80 mg NG QPM [facility] Last Admin: 02/17/21 21:05 Dose: 80 mg Documented by: Insulin Human Regular (Insulin Regular Human 300 Unit/3 Ml Vial) 1 - 5 unit SUBQ Q6HR [facility]; Protocol Last Admin: 02/18/21 11:24 Dose: Not Given Documented by: Lisinopril (Lisinopril 20 Mg Tablet) 20 mg PO DAILY [facility] Last Admin: 02/18/21 08:24 Dose: 20 mg Documented by: Metoprolol Tartrate (Metoprolol Tartrate 25 Mg Tablet) 25 mg NG BID [facility] Last Admin: 02/18/21 08:25 Dose: 25 mg Documented by: Ondansetron HCl (Ondansetron 4 Mg/2 Ml Vial) 4 mg IVP Q6HR PRN PRN Reason: Nausea / Vomiting Sodium Chloride (Sodium Chloride Flush 0.9% 10 Ml Syringe) 10 ml IVP PRN PRN PRN Reason: NEEDED PER PROVIDER ORDERS Last Admin: 02/14/21 13:32 Dose: 10 ml Documented by: Sodium Chloride (Sodium Chloride Flush 0.9% 10 Ml Syringe) 10 ml IVP 0100,0900,1700 [facility] Last Admin: 02/18/21 08:34 Dose: 10 ml Documented by: Allergies/Adverse Reactions: Allergies Allergy/AdvReac Type Severity Reaction Status Date / Time No Known Drug Allergies Allergy Verified 07/02/19 01:43 Anes History & Medical History - Anesthetic History Anesthesia Complications: reports: No previous complications Family history of Anesthesia Complications: Denies Family history of Malignant Hyperthermia: Denies - Medical History Cardiovascular: reports: Hypertension, Atrial fibrillation, Arrhythmia Pulmonary: reports: None Gastrointestinal: reports: None Urinary: reports: None Neuro: reports: CVA (in 2020) Musculoskeletal: reports: None Endocrine/Autoimmune: reports: None Blood Disorders: reports: None Skin: reports: None Smoking Status: Never smoker History of Cancer?: No Exam General: Cooperative, Moderate distress, Other (only repeats yes and no) Mouth Openin Fingerbreadth (NGT in place) Neck Mobility: Normal Mallampati classification: II Thyromental Distance: 4-6 cm Respiratory: Decreased breath sounds, Rhonchi (B bases, upper R) Cardiovascular: Other (AF) Neurological: Other (major R sided weakness, 2019 CVA and current status for admit) Mental/Cognitive Status: Oriented to name Cognitive Status: Other (describe below) (2019 CVA and likely CVA 02/14 prior to being found down) Plan Anesthesia Type: General Consent for Procedure(s) Verified and Reviewed: Yes Code Status: Attempt Resuscitation ASA classification: 3-Severe systemic disease Is this case an emergency?: No
[2021-02-18] MEDS ORDERED: ePHEDrine 50 MG/ML VIAL IVP PRN (15:34)
[2021-02-18] MEDS ORDERED: NALOXONE 0.4 MG/ML VIAL IVP PRN (15:34)
[2021-02-18] MEDS ORDERED: MORPHINE 2 MG/ML CARPUJECT IVP PRN (15:34)
[2021-02-18] MEDS ORDERED: ONDANSETRON 4 MG/2 ML VIAL IVP PRN (15:34)
[2021-02-18] MEDS ORDERED: ATROPINE ABBOJECT 1 MG/10 ML SYRINGE IVP PRN (15:34)
[2021-02-18] MEDS ORDERED: METOCLOPRAMIDE 10 MG/2 ML VIAL IVP PRN (15:34)
[2021-02-18] MEDS ORDERED: fentaNYL 100 MCG/2 ML VIAL IVP PRN (15:34)
[2021-02-18] MEDS ORDERED: HYDROmorphone 0.5 MG/0.5 ML SYRINGE IVP PRN (15:34)
[2021-02-18] MEDS ORDERED: LACTATED RINGERS 1,000 ML IV SCH (16:00)
[2021-02-18] MEDS ORDERED: LIDOCAINE-MPF 2% 5 ML VIAL ONE (16:17)
[2021-02-18] MEDS ORDERED: PROPOFOL 200 MG/20 ML VIAL IVP ONE (16:17)
[2021-02-18] MEDS ORDERED: ROCURONIUM 50 MG/5 ML VIAL ONE (16:19)
[2021-02-18] MEDS ORDERED: ONDANSETRON 4 MG/2 ML VIAL ONE (16:20)
[2021-02-18] MEDS ORDERED: fentaNYL 100 MCG/2 ML VIAL ONE (16:20)
[2021-02-18] MEDS ORDERED: DEXAMETHASONE 4 MG/ML VIAL ONE (16:20)
[2021-02-18] MEDS ORDERED: SUGAMMADEX 200 MG/2 ML VIAL IVP ONE (16:46)
--- NOTE | 2021-02-18 16:46 | CONSULTATION NOTE ---
Referring Provider Name of Referring Provider:: [facility] Consult Date: 02/18/21 Chief Complaint - Chief Complaint Chief Complaint: Dysphagia following CVA History of Present Illness - Admitted From Admitted From:: ED - History Obtained From History obtained from: Patient's sister - History of Present Illness HPI Comment/Other: Patient is 65-year-old male with medical history significant for a CVA in April 2020 with residual aphasia, atrial fibrillation and hypertension who was brought to the ED by EMS after he had been found down by the mailbox [place] the [employer] [place] where he lives and 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 It is unclear how long he had been down. He was noted to have a right-sided facial droop and right-sided weakness. In the ED work-up included a CT and CT angio of the head and neck which showed Left fronto-parietal temporal low-attenuation focus highly suggestive of acute/subacute ischemia. MRI of the brain was recommended for further evaluation. At bedside the patient is awake but not oriented to place, time or reason. He is unable to follow commands. Is unclear if he is able to comprehend instructions given. He seems to have a right sided neglect. After the CVA in April 2020 it appear he had not followed up with a PCP. It is unclear if he has been on eliquis, metoprolol or atorvastatin He was admitted by the medicine service and found to have a recurrent stroke. He has developed significant dysphagia and is not able to tolerate oral intake. I have been consulted regarding the possibility of percutaneous endoscopic gastrostomy tube placement. History - Past Medical History Cardiovascular: reports: Hypertension, Atrial fibrillation, Arrhythmia Respiratory: reports: None Neuro: reports: CVA (in 2019) Endocrine/Autoimmune: reports: None GI: reports: None : reports: None Psych: reports: None Musculoskeletal: reports: None Derm: reports: None - Past Surgical History Neuro: reports: Other (History of stroke in 2019) - Family & Social History Family History Comment/Other: The details of this could not be obtained because of his expressive aphasia. Social History Notes: He does not smoke drink or use illicit drugs - POLST Patient has POLST: No POLST Status: Full Code Meds/Allgy - Home Medications Home Medications: Ambulatory Orders Medication Instructions Recorded Confirmed Aspirin 325 mg PO DAILY #30 tablet 07/03/19 02/14/21 Metoprolol Succinate [Toprol Xl] 12.5 mg PO DAILY #15 tablet 07/03/19 02/14/21 - Allergies Allergies/Adverse Reactions: Allergies Allergy/AdvReac Type Severity Reaction Status Date / Time No Known Drug Allergies Allergy Verified 07/02/19 01:43 Review of Systems - All Other Systems All Other Systems: reports: Other (Unable to obtain) Exam - Vital Signs Reviewed Vital Signs: Yes Vital Signs: Vital Signs x48h Temp Pulse Resp BP BP Pulse Ox 02/18/21 15:06 37.1 C 60 20 139/89 H 98 02/18/21 13:00 36.8 C 74 20 139/76 H 100 02/18/21 09:00 37 C 77 22 147/86 H 97 - Physical Exam General Appearance: positive: No acute distress, Lethargic Respiratory: positive: No respiratory distress Abdomen: positive: Other (Pleasant and obese gentleman.Very thick abdominal wall is noted. No healed incisions or hernias are appreciated.). negative: Tenderness, Guarding, Rebound Conclusion and Plan - Lab Results Laboratory Results 02/18/21 11:15: POC Whole Bld Glucose 109 H 02/18/21 06:42: Sodium 133 L, Potassium 3.9, Chloride 101, Carbon Dioxide 24, Anion Gap 8.0, BUN 9, Creatinine 0.7, Estimated GFR (MDRD) 138, Glucose 111 H, Calcium 8.3 L, Phosphorus 3.7, Magnesium 1.8, Total Bilirubin 0.8, AST 79 H, ALT 51, Alkaline Phosphatase 46, Total Protein 6.9, Albumin 2.9 L, Globulin 4.0, Albumin/Globulin Ratio 0.7 L, Prealbumin 13 L 02/18/21 06:42: WBC 10.2, RBC 4.88, Hgb 11.8 L, Hct 37.2 L, MCV 76.2 L, MCH 24.2 L, MCHC 31.7 L, RDW 17.7 H, Plt Count 237, MPV 9.8, Neut # (Auto) 8.0 H, Lymph # (Auto) 1.1 L, [place] # (Auto) 0.9, Eos # (Auto) 0.2, Baso # (Auto) 0.0, Absolute Nucleated RBC 0.00, Nucleated RBC % 0.0 02/18/21 05:33: POC Whole Bld Glucose 108 H 02/17/21 23:40: POC Whole Bld Glucose 121 H 02/17/21 11:39: POC Whole Bld Glucose 117 H 02/17/21 05:39: POC Whole Bld Glucose 120 H 02/17/21 05:28: Sodium 132 L, Potassium 3.6, Chloride 101, Carbon Dioxide 23, Anion Gap 8.0, BUN 9, Creatinine 0.8, Estimated GFR (MDRD) 118, Glucose 133 H, Calcium 8.0 L 02/17/21 05:28: WBC 9.2, RBC 4.83, Hgb 11.3 L, Hct 36.9 L, MCV 76.4 L, MCH 23.4 L, MCHC 30.6 L, RDW 17.7 H, Plt Count 229, MPV 9.7, Neut # (Auto) 6.9 H, Lymph # (Auto) 1.2 L, [place] # (Auto) 0.8, Eos # (Auto) 0.2, Baso # (Auto) 0.0, Absolute Nucleated RBC 0.00, Nucleated RBC % 0.0 02/16/21 23:44: POC Whole Bld Glucose 128 H 02/16/21 18:02: POC Whole Bld Glucose 98 - Diagnosis Diagnosis: Dysphagia following CVA - Plan Plan: We will attempt to place a percutaneous endoscopic gastrostomy tube. I discussed the procedure with the patient and his sister at length. They understand that there are several things that could stop us in 1 that is not unlikely in this case is inability to transilluminate if we are not able to see the endoscopic light through the abdominal wall, it will not be safe to place a PEG. This would necessitate a different kind of feeding apparatus. The patient sister voices understanding and a desire to proceed.
--- NOTE | 2021-02-18 16:50 | OPERATIVE REPORT ---
Operative Report - General Admit Date: 02/14/21 Procedure Date: 02/18/21 Planned Procedure: Percutaneous endoscopic gastrostomy tube placementWith EGD Pre-Op Diagnosis: Dysphagia following CVA Procedure Performed: Esophagogastroduodenoscopy with attempted PEG placement Post Op Diagnosis: Dysphagia following stroke - Procedure Note Primary Surgeon: Michele Anesthesia Provider: YARELIS Del Cid Anesthesia Technique: General ET tube Pathology: None Indications: Dysphagia following stroke - facilitation of nutritional support Findings: Normal-appearing esophagus and stomach without gross evidence of pathology Complications: Able to transilluminate the abdominal wall in order to place the PEG safely. The procedure was aborted for this reason - Other Other Information/Narrative: After obtaining informed consent, the patient is brought to the operating room and placed in the supine position on the operating table. Following successful induction of general anesthesia, appropriate padding of all bony prominences, and placement of appropriate monitors, a timeout was held per scope protocol. All elements of the surgical safety checklist were followed before, during, and after the procedure. The gastroscope was lubricated and passed gently down the patient's posterior oropharynx and into the stomach. No abnormalities were noted of the mucosa of t he stomach or esophagus. The lights were all turned out and attempt was made to transilluminate the abdominal wall. In multiple positions and with external pressure as well as brightening the light of the scope, we were still unable to transilluminate the abdominal wall. For this reason, the procedure was aborted as it is not safe to continue.The gastroscope was gently removed from the patient's oropharynx. He was allowed to wake from anesthesia without difficulty and taken to the postanesthesia care unit in good condition.
[2021-02-18] MEDS ORDERED: LACTATED RINGERS 900 ML IV ONE (17:00)
--- NOTE | 2021-02-18 17:57 | ANESTHESIA POST OP EVALUATION ---
Anesthesia Post Eval - Post Anesthesia Eval Vitals: Last Vital Signs Temp 36.4 C L 02/18/21 17:35 Pulse 90 02/18/21 17:35 Resp 16 02/18/21 17:35 BP 113/70 02/18/21 17:35 Pulse Ox 96 02/18/21 17:35 CV Function Including HR & BP: Stable Pain Control: Satisfactory Nausea & Vomiting: Negative Mental Status: Baseline Respiratory Status: Airway Patent Hydration Status: Satisfactory Anesthesia Complications: None
--- NOTE | 2021-02-18 23:13 | XRAY Report ---
PROCEDURE: Chest for Line Placement INDICATIONS: NG tube placement TECHNIQUE: One view of the chest was acquired. COMPARISON: Several on 02/15/2021 FINDINGS: Surgical changes and devices: A gastric tube is again seen. The tip is not well seen, although the di stal end of the gastric tube can be seen overlying the proximal stomach, with the tip seen likely coi ling Upon itself near the gastroesophageal junction. Lungs and pleura: Low lung volumes can be seen, causing a crowded appearance to the lung markings. Mediastinum: The aorta is prominent and tortuous. The cardiac contours are mildly enlarged. Bones and chest wall: No suspicious bony lesions. Age-appropriate degenerative changes are seen. P rominent gas-filled loops of bowel can be seen within the upper abdomen. IMPRESSION: The tip of the gastric tube is not well depicted, although the distal end of the gastric tube is seen overlying the fundus of the stomach, with tip curling upon itself and likely likely near the gastroe sophageal junction. Reviewed by: Rk Swan MD on 02/18/2021 10:11 PM [facility] Approved by: Rk Swan MD on 02/18/2021 10:11 PM [facility] Station ID: [id number]
[2021-02-19] MEDS: INSULIN REGULAR HUMAN 300 UNIT/3 ML VIAL SUBQ SCH ×5 (00:28→23:43)
[2021-02-19] MEDS: ATORVASTATIN 40 MG TABLET NG SCH ×2 (00:39→20:45)
[2021-02-19] MEDS: METOPROLOL TARTRATE 25 MG TABLET NG SCH ×3 (00:40→20:45)
[2021-02-19] MEDS: SODIUM CHLORIDE FLUSH 0.9% 10 ML SYRINGE IVP SCH ×3 (01:05→20:45)
--- NOTE | 2021-02-19 06:56 | PROVIDER PROGRESS NOTE ---
Hospitalist Cross-cover Note - Cross-Cover Note Cross-Cover Note: February 19, 2021 6:55 AM Night evening nurse states that the patient was unable to get a PEG tube yesterday. Unable to transilluminate the abdominal wall. Patient is now n.p.o. and Jevity through NG tube is on hold for possible J-tube placement this m chester. She would like IV fluids for the patient and as such have ordered lactated Ringer's
[2021-02-19] MEDS ORDERED: LACTATED RINGERS 1,000 ML IV SCH (07:00)
[2021-02-19 07:16] LABS: BASOPHILS % (AUTO) 0.1 %; EOSINOPHILS % (AUTO) 0.1 %; HCT - HEMATOCRIT 37.3 % (42.0-52.0); HGB - HEMOGLOBIN 11.5 g/dL (14.0-18.0); LYMPHOCYTES # (AUTO) 0.7 10^3/uL (1.5-3.5); LYMPHOCYTES % (AUTO) 7.5 %; MEAN CORPUSCULAR HEMOGLOBIN 23.8 pg (27.0-31.0); MEAN CORPUSCULAR HGB CONC 30.8 g/dL (32.0-36.0); MEAN CORPUSCULAR VOLUME 77.1 fL (80.0-94.0); MEAN PLATELET VOLUME 9.8 fL (7.4-11.4); MONOCYTES # (AUTO) 0.7 10^3/uL (0.0-1.0); MONOCYTES % (AUTO) 7.2 %; NEUTROPHILS # (AUTO) 8.4 10^3/uL (1.5-6.6); NEUTROPHILS % (AUTO) 84.8 %; PLT - PLATELET COUNT 255 10^3/uL (130-450); RED BLOOD COUNT 4.84 10^6/uL (4.70-6.10); RED CELL DISTRIBUTION WIDTH 18.1 % (12.0-15.0); WHITE BLOOD COUNT 9.9 x10^3/uL (4.8-10.8)
[2021-02-19 07:18] LABS: CALCIUM 8.7 mg/dL (8.5-10.3); CREATININE 0.8 mg/dL (0.6-1.2); POTASSIUM 4.5 mmol/L (3.5-5.0)
--- NOTE | 2021-02-19 08:12 | PROVIDER PROGRESS NOTE ---
Assessment/Plan - Problem List (1) Cerebrovascular accident (CVA) Qualifiers: CVA mechanism: embolism Precerebral and cerebral artery: middle cerebral artery Laterality of affected vessel: left Qualified Code(s): I63.412 - Cerebral infarction due to embolism of left middle cerebral artery Assessment/Plan: Qualifiers: CVA mechanism: embolism Precerebral and cerebral artery: middle cerebral artery Laterality of affected vessel: left Qualified Code(s): I63.412 - Cerebral infarction due to embolism of left middle cerebral artery Assessment/Plan: Right-sided weakness persists. Patient is aphasic. Comprehension appears slightly improved Patient working with PT and OT. PEG tube placement attempt 02/18/21 unsuccessful. Will discuss other options with general surgery 02/21/21 Since patient's transfer to Inpatient rehab is on condition that he has peg tube or j tube. Continue baby aspirin and Lipitor 80 mg p.o. q. at bedtime Discharge coordinators assisting in placement. Anticipating discharge to a rehab facility 0n 02/21/21 (2) Aphasia Assessment/Plan: He continues to have expressive and receptive aphasia. This is secondary to CVA. Inpatient rehab anticipated in 3 days. (3) Hypertension Assessment/Plan: Better controlled. Systolic blood pressure 130's. On metoprolol tartrate 25 mg via NG tube twice daily Lisinopril 20 mg daily (4) Atrial fibrillation Qualifiers: Atrial fibrillation type: longstanding persistent Qualified Code(s): I48.11 - Longstanding persistent atrial fibrillation Assessment/Plan: He remains rate controlled on the metoprolol. We are continuing aspirin for the time being and he will be initiated on anticoagulation February 28 which will be 2 weeks post stroke as recommended by neurology. (4) Atrial fibrillation Qualifiers: Atrial fibrillation type: longstanding persistent Qualified Code(s): I48.11 - Longstanding persistent atrial fibrillation - Current Meds Current Meds: Current Medications Generic Name Dose Route Start Last Admin Trade Name Freq PRN Reason Stop Dose Admin Acetaminophen 650 mg 02/14/21 07:43 02/16/21 11:16 Acetaminophen 325 Mg Tablet PO 650 mg Q4HR PRN Administration Pain 1 to 4 Aspirin 81 mg 02/15/21 11:00 02/18/21 08:25 Aspirin Chew 81 Mg Tablet NG 81 mg DAILY MANNY Administration Atorvastatin Calcium 80 mg 02/15/21 21:00 02/19/21 00:39 Atorvastatin 40 Mg Tablet NG 80 mg QPM MANNY Administration Insulin Human Regular 1 - 5 unit 02/15/21 12:00 02/19/21 06:30 Insulin Regular Human 300 Unit/3 Ml Vial SUBQ Not Given Q6HR [facility] Protocol Lisinopril 20 mg 02/18/21 09:00 02/18/21 08:24 Lisinopril 20 Mg Tablet PO 20 mg DAILY MANNY Administration Metoprolol Tartrate 25 mg 02/15/21 21:00 02/19/21 00:40 Metoprolol Tartrate 25 Mg Tablet NG 25 mg BID MANNY Administration Sodium Chloride 10 ml 02/14/21 07:43 02/14/21 13:32 Sodium Chloride Flush 0.9% 10 Ml Syringe IVP 10 ml PRN PRN Administration NEEDED PER PROVIDER ORDERS Sodium Chloride 10 ml 02/14/21 09:00 02/19/21 01:05 Sodium Chloride Flush 0.9% 10 Ml Syringe IVP 10 ml 0100,0900,1700 MANNY Administration - Lab Result Fish Bone Diagrams: 02/19/21 06:11 02/19/21 06:11 Subjective - Subjective Patient Reports: Other (He was resting comfortably in bed at time of exam. Expressive aphasia still noted but patient was more responsive today. He attempted to answer questions this is asked. Some words were discernable) Objective Vital Signs: Vital Signs - 24 hr 02/18/21 02/18/21 02/18/21 08:25 09:00 13:00 Temperature 37 C 36.8 C Heart Rate Heart Rate [ 77 74 Brachial] Heart Rate [ Monitoring electrodes] Respiratory 22 20 Rate Blood Pressure 147/86 H Blood Pressure [Left Brachial artery] Blood Pressure 147/86 H 139/76 H [Right Brachial artery] O2 Saturation 97 100 02/18/21 02/18/21 02/18/21 15:06 16:55 17:00 Temperature 37.1 C 37.2 C 327.2 C H Heart Rate 84 85 Heart Rate [ 60 Brachial] Heart Rate [ Monitoring electrodes] Respiratory 20 16 16 Rate Blood Pressure 117/82 H 111/62 Blood Pressure 139/89 H [Left Brachial artery] Blood Pressure [Right Brachial artery] O2 Saturation 98 94 94 02/18/21 02/18/21 02/18/21 17:05 17:10 17:15 Temperature 37 C 37 C 37 C Heart Rate 76 86 80 Heart Rate [ Brachial] Heart Rate [ Monitoring electrodes] Respiratory 18 18 18 Rate Blood Pressure 97/57 L 101/65 107/67 Blood Pressure [Left Brachial artery] Blood Pressure [Right Brachial artery] O2 Saturation 95 95 95 02/18/21 02/18/21 02/18/21 17:20 17:35 18:14 Temperature 37 C 36.4 C L Heart Rate 85 Heart Rate [ 90 Brachial] Heart Rate [ 85 Monitoring electrodes] Respiratory 20 16 Rate Blood Pressure 113/76 Blood Pressure [Left Brachial artery] Blood Pressure 113/70 131/68 H [Right Brachial artery] O2 Saturation 94 96 02/18/21 02/18/21 02/19/21 19:08 20:09 00:26 Temperature 37.3 C 36.5 C Heart Rate Heart Rate [ 89 83 Brachial] Heart Rate [ 77 Monitoring electrodes] Respiratory 20 18 Rate Blood Pressure Blood Pressure [Left Brachial artery] Blood Pressure 146/78 H 148/70 H 150/88 H [Right Brachial artery] O2 Saturation 98 02/19/21 02/19/21 00:40 05:00 Temperature 36.4 C L Heart Rate Heart Rate [ 78 Brachial] Heart Rate [ Monitoring electrodes] Respiratory 16 Rate Blood Pressure 150/88 H Blood Pressure [Left Brachial artery] Blood Pressure 156/77 H [Right Brachial artery] O2 Saturation 96 Oxygen O2 Source Room air I&O (Last 24 Hrs): Intake and Output Totals x24h 02/17/21 02/18/21 02/19/21 23:59 23:59 23:59 Intake Total 810 1091 0 Output Total 1135 1375 800 Balance -325 -565 -800 Comments/Notes: General: Alert, No acute distress, Other (More responsive to the. Some of his words are comprehensible Aphasic.) HEENT: PERRLA, EOMI Neck: Supple, No JVD Neuro: Alert, Focal Deficits (Right-sided weakness), Other (Aphasia.) Cardiovascular: Other (Irregularly irregular Rhythm) Respiratory: Chest non-tender, No respiratory distress, Breath sounds nml Abdomen: Normal bowel sounds, Soft, No tenderness, No masses Extremities: No clubbing, No cyanosis, No edema, No tenderness/swelling Skin: No rashes, No breakdown, No significant lesion - Results Results: Laboratory Results WBC 9.9 x10^3/uL (4.8-10.8) 10/02/21 06:11 RBC 4.84 10^6/uL (4.70-6.10) 02/19/21 06:11 Hgb 11.5 g/dL (14.0-18.0) L 02/19/21 06:11 Hct 37.3 % (42.0-52.0) L 02/19/21 06:11 MCV 77.1 fL (80.0-94.0) L 02/19/21 06:11 MCH 23.8 pg (27.0-31.0) L 02/19/21 06:11 MCHC 30.8 g/dL (32.0-36.0) L 02/19/21 06:11 RDW 18.1 % (12.0-15.0) H 02/19/21 06:11 Plt Count 255 10^3/uL (130-450) 02/19/21 06:11 MPV 9.8 fL (7.4-11.4) 02/19/21 06:11 Neut # (Auto) 8.4 10^3/uL (1.5-6.6) H 02/19/21 06:11 Lymph # (Auto) 0.7 10^3/uL (1.5-3.5) L 02/19/21 06:11 [place] # (Auto) 0.7 10^3/uL (0.0-1.0) 02/19/21 06:11 Eos # (Auto) 0.0 10^3/uL (0.0-0.7) 02/19/21 06:11 Baso # (Auto) 0.0 10^3/uL (0.0-0.1) 02/19/21 06:11 Absolute Nucleated RBC 0.00 x10^3/uL 02/19/21 06:11 Nucleated RBC % 0.0 /100WBC 02/19/21 06:11 ESR 1 mm/Hr (0-20) 02/14/21 06:14 PT 12.6 secs (9.9-12.6) 02/14/21 06:14 INR 1.1 (0.8-1.2) 02/14/21 06:14 APTT 23.1 secs (24.9-33.3) L 02/14/21 06:14 Sodium 133 mmol/L (135-145) L 02/19/21 06:11 Potassium 4.5 mmol/L (3.5-5.0) 02/19/21 06:11 Chloride 102 mmol/L (101-111) 02/19/21 06:11 Carbon Dioxide 22 mmol/L (21-32) 02/19/21 06:11 Anion Gap 9.0 (6-13) 02/19/21 06:11 BUN 14 mg/dL (6-20) 02/19/21 06:11 Creatinine 0.8 mg/dL (0.6-1.2) 02/19/21 06:11 Estimated GFR (MDRD) 118 (>89) 02/19/21 06:11 Glucose 111 mg/dL (70-100) H 02/19/21 06:11 POC Whole Bld Glucose 113 mg/dL (70 - 100) H 02/19/21 06:24 Estimat Average Glucose 111 mg/dL (70-100) H 02/14/21 08:16 Hemoglobin A1c % 5.5 % (4.27-6.07) 02/14/21 08:16 Calcium 8.7 mg/dL (8.5-10.3) 02/19/21 06:11 Phosphorus 3.7 mg/dL (2.5-4.6) 02/18/21 06:42 Magnesium 1.8 mg/dL (1.7-2.8) 02/18/21 06:42 Iron 75 ug/dL (45-182) 02/15/21 08:18 TIBC 371 ug/dL (250-450) 02/15/21 08:18 % Saturation 20 % (20-50) 02/15/21 08:18 Transferrin 265 mg/dL (180-329) 02/15/21 08:18 Ferritin 22.5 ng/mL (23.9-336.2) L 02/15/21 08:18 Total Bilirubin 0.8 mg/dL (0.2-1.0) 02/18/21 06:42 AST 79 IU/L (10-42) H 02/18/21 06:42 ALT 51 IU/L (10-60) 02/18/21 06:42 Alkaline Phosphatase 46 IU/L (42-121) 02/18/21 06:42 Total Protein 6.9 g/dL (6.7-8.2) 02/18/21 06:42 Albumin 2.9 g/dL (3.2-5.5) L 02/18/21 06:42 Globulin 4.0 g/dL (2.1-4.2) 02/18/21 06:42 Albumin/Globulin Ratio 0.7 (1.0-2.2) L 02/18/21 06:42 Prealbumin 13 mg/dL (18-45) L 02/18/21 06:42 Triglycerides 55 mg/dL (-149) 02/15/21 05:28 Cholesterol 137 mg/dL (-199) 02/15/21 05:28 LDL Cholesterol, Calc 61 mg/dL (-129) 02/15/21 05:28 VLDL Cholesterol 11 mg/dL 02/15/21 05:28 HDL Cholesterol 65 mg/dL (60-) 02/15/21 05:28 LDL/HDL Ratio 0.9 (<3.6) 02/15/21 05:28 Cholesterol/HDL Ratio 2.1 (<5.0) 02/15/21 05:28 Lipase 30 U/L (22-51) 02/14/21 06:14 TSH 1.03 uIU/mL (0.34-5.60) 02/15/21 08:18 Nasal Adenovirus (PCR) NOT DETECTED 02/14/21 06:30 Nasal B. parapertussis DNA (PCR) NOT DETECTED 02/14/21 06:30 Nasal Coronavir 229E PCR NOT DETECTED 02/14/21 06:30 Nasal Coronavir HKU1 PCR NOT DETECTED 02/14/21 06:30 Nasal Coronavir NL63 PCR NOT DETECTED 02/14/21 06:30 Nasal Coronavir OC43 PCR NOT DETECTED 02/14/21 06:30 Nasal Enterovir/Rhinovir PCR NOT DETECTED 02/14/21 06:30 Nasal Influenza B PCR NOT DETECTED 02/14/21 06:30 Nasal Influenza A PCR NOT DETECTED 02/14/21 06:30 Nasal Parainfluen 1 PCR NOT DETECTED 02/14/21 06:30 Nasal Parainfluen 2 PCR NOT DETECTED 02/14/21 06:30 Nasal Parainfluen 3 PCR NOT DETECTED 02/14/21 06:30 Nasal Parainfluen 4 PCR NOT DETECTED 02/14/21 06:30 Nasal RSV (PCR) NOT DETECTED 02/14/21 06:30 Nasal B.pertussis DNA PCR NOT DETECTED 02/14/21 06:30 Nasal C.pneumoniae (PCR) NOT DETECTED 02/14/21 06:30 Cody Human Metapneumo PCR NOT DETECTED 02/14/21 06:30 Nasal M.pneumoniae (PCR) NOT DETECTED 02/14/21 06:30 Nasal SARS-CoV-2 (PCR) NOT DETECTED 02/14/21 06:30 Ethyl Alcohol < 5.0 mg/dL 02/14/21 06:14 ABX Reporting Has patient been on IV antibiotics over the past 48 hours?: No
[2021-02-19] MEDS: lisinopriL 20 MG TABLET PO SCH (10:20)
[2021-02-19] MEDS: ASPIRIN CHEW 81 MG TABLET NG SCH (10:20)
--- NOTE | 2021-02-19 12:29 | PROVIDER PROGRESS NOTE ---
Subjective - Subjective Pt reports feeling: Improved (He and his feel he is improving daily.) Objective - Vital Signs/Intake & Output Reviewed Vital Signs: Yes Vital Signs: Vital Signs x48h Temp Pulse Resp BP Pulse Ox 02/19/21 09:00 76 16 137/85 H 96 02/19/21 05:00 36.4 C L 78 16 156/77 H 96 Intake & Output: Intake & Output 02/16/21 02/17/21 02/18/21 02/19/21 23:59 23:59 23:59 23:59 Intake Total 2532 810 1091 0 Output Total 835 1135 1375 800 Balance 1697 -325 -284 -800 - Objective General Appearance: positive: No acute distress, Alert Eyes Bilateral: positive: PERRL, EOMI ENT: positive: No signs of dehydration Neck: positive: No JVD Respiratory: positive: No respiratory distress Abdomen: positive: Non-tender, No distention, Other (obese) Neurologic/Psychiatric: positive: Other (alert and responds appropriately) - Lab Results Fish Bones: 02/19/21 06:11 02/19/21 06:11 Other Labs: Lab Results x24hrs 02/19/21 02/19/21 02/19/21 Range/Units 06:24 06:11 06:11 WBC 9.9 (4.8-10.8) x10^3/uL RBC 4.84 (4.70-6.10) 10^6/uL Hgb 11.5 L (14.0-18.0) g/dL Hct 37.3 L (42.0-52.0) % MCV 77.1 L (80.0-94.0) fL MCH 23.8 L (27.0-31.0) pg MCHC 30.8 L (32.0-36.0) g/dL RDW 18.1 H (12.0-15.0) % Plt Count 255 (130-450) 10^3/uL MPV 9.8 (7.4-11.4) fL Neut # (Auto) 8.4 H (1.5-6.6) 10^3/uL Lymph # (Auto) 0.7 L (1.5-3.5) 10^3/uL [place] # (Auto) 0.7 (0.0-1.0) 10^3/uL Eos # (Auto) 0.0 (0.0-0.7) 10^3/uL Baso # (Auto) 0.0 (0.0-0.1) 10^3/uL Absolute Nucleated RBC 0.00 x10^3/uL Nucleated RBC % 0.0 /100WBC Sodium 133 L (135-145) mmol/L Potassium 4.5 (3.5-5.0) mmol/L Chloride 102 (101-111) mmol/L Carbon Dioxide 22 (21-32) mmol/L Anion Gap 9.0 (6-13) BUN 14 (6-20) mg/dL Creatinine 0.8 (0.6-1.2) mg/dL Estimated GFR (MDRD) 118 (>89) Glucose 111 H (70-100) mg/dL POC Whole Bld Glucose 113 H (70 - 100) mg/dL Calcium 8.7 (8.5-10.3) mg/dL 02/19/21 02/18/21 Range/Units 00:24 17:34 WBC (4.8-10.8) x10^3/uL RBC (4.70-6.10) 10^6/uL Hgb (14.0-18.0) g/dL Hct (42.0-52.0) % MCV (80.0-94.0) fL MCH (27.0-31.0) pg MCHC (32.0-36.0) g/dL RDW (12.0-15.0) % Plt Count (130-450) 10^3/uL MPV (7.4-11.4) fL Neut # (Auto) (1.5-6.6) 10^3/uL Lymph # (Auto) (1.5-3.5) 10^3/uL [place] # (Auto) (0.0-1.0) 10^3/uL Eos # (Auto) (0.0-0.7) 10^3/uL Baso # (Auto) (0.0-0.1) 10^3/uL Absolute Nucleated RBC x10^3/uL Nucleated RBC % /100WBC Sodium (135-145) mmol/L Potassium (3.5-5.0) mmol/L Chloride (101-111) mmol/L Carbon Dioxide (21-32) mmol/L Anion Gap (6-13) BUN (6-20) mg/dL Creatinine (0.6-1.2) mg/dL Estimated GFR (MDRD) (>89) Glucose (70-100) mg/dL POC Whole Bld Glucose 121 H 103 H (70 - 100) mg/dL Calcium (8.5-10.3) mg/dL Assessment/Plan - Problem List (1) Cerebrovascular accident (CVA) Impression: Consult for feeding tube. PEG tube attempted. His stomach is not in a location to safely allow PEG placement ie liver or colon blocking access to the stomach for PEG tube placement. ASA class 4 with recent CVA. I do not believe he is a candidate at [facility] for elective laparotomy for open G tube placement. We discussed sometimes feeding tubes can be placed laparoscopic. We do not have that capability on [facility]. He is improving daily. Options are transfer to facility that can offer a higher level of care for possible open G tube placement vs laparoscopic feeding tube placement. If he continues to improve daily he may be able to avoid feeding tube placement. This is all discussed with him and his . He seemed very understanding. Agree with current care. was asking for a swallow evaluation. Qualifiers: CVA mechanism: embolism Precerebral and cerebral artery: middle cerebral artery Laterality of affected vessel: left Qualified Code(s): I63.412 - Cerebral infarction due to embolism of left middle cerebral artery
[2021-02-20] MEDS: SODIUM CHLORIDE FLUSH 0.9% 10 ML SYRINGE IVP SCH ×3 (01:05→20:19)
[2021-02-20] MEDS: INSULIN REGULAR HUMAN 300 UNIT/3 ML VIAL SUBQ SCH ×3 (06:45→19:14)
[2021-02-20] MEDS: ASPIRIN CHEW 81 MG TABLET NG SCH (08:18)
[2021-02-20] MEDS: METOPROLOL TARTRATE 25 MG TABLET NG SCH ×2 (08:18→20:19)
[2021-02-20] MEDS: lisinopriL 20 MG TABLET PO SCH (08:19)
--- NOTE | 2021-02-20 08:25 | PROVIDER PROGRESS NOTE ---
Assessment/Plan - Problem List (1) Cerebrovascular accident (CVA) Qualifiers: CVA mechanism: embolism Precerebral and cerebral artery: middle cerebral artery Laterality of affected vessel: left Qualified Code(s): I63.412 - Cerebral infarction due to embolism of left middle cerebral artery Assessment/Plan: Right-sided weakness persists. Patient is aphasic. Comprehension appears slightly improved Patient working with PT and OT. PEG tube placement attempt 02/18/21 unsuccessful. I spoke with Dr. Gilbert of [facility] radiology tp02/20/21. Interventional radiology at [facility] will be able to do the PEG tube. She will be in contact tomorrow morning to discuss scheduling. We will need to coordinate sending the patient to [facility] for the procedure and returning. If the PEG tube is done on 02/21/2021 then the patient will be able to be discharged to [facility] inpatient rehab the following day 02/22/2021. Continue baby aspirin and Lipitor 80 mg p.o. q. at bedtime Discharge coordinators assisting in placement. Anticipating discharge to a rehab facility on 02/22/21 or 02/23/21 (2) Aphasia Assessment/Plan: He continues to have expressive and receptive aphasia. This is secondary to CVA. Inpatient rehab anticipated in 2-3 days. (3) Hypertension Assessment/Plan: Better controlled. Systolic blood pressure 130's. On metoprolol tartrate 25 mg via NG tube twice daily Lisinopril 20 mg daily (4) Atrial fibrillation Qualifiers: Atrial fibrillation type: longstanding persistent Qualified Code(s): I48.11 - Longstanding persistent atrial fibrillation Assessment/Plan: He remains rate controlled on the metoprolol. We are continuing aspirin for the time being and he will be initiated on anticoagulation February 28 which will be 2 weeks post stroke as recommended by neurology. - Current Meds Current Meds: Current Medications Generic Name Dose Route Start Last Admin Trade Name Freq PRN Reason Stop Dose Admin Acetaminophen 650 mg 02/14/21 07:43 02/16/21 11:16 Acetaminophen 325 Mg Tablet PO 650 mg Q4HR PRN Administration Pain 1 to 4 Aspirin 81 mg 02/15/21 11:00 02/20/21 08:18 Aspirin Chew 81 Mg Tablet NG 81 mg DAILY MANNY Administration Atorvastatin Calcium 80 mg 02/15/21 21:00 02/19/21 20:45 Atorvastatin 40 Mg Tablet NG 80 mg QPM MANNY Administration Insulin Human Regular 1 - 5 unit 02/15/21 12:00 02/20/21 06:45 Insulin Regular Human 300 Unit/3 Ml Vial SUBQ Not Given Q6HR [facility] Protocol Lisinopril 20 mg 02/18/21 09:00 02/20/21 08:19 Lisinopril 20 Mg Tablet PO 20 mg DAILY MANNY Administration Metoprolol Tartrate 25 mg 02/15/21 21:00 02/20/21 08:18 Metoprolol Tartrate 25 Mg Tablet NG 25 mg BID MANNY Administration Sodium Chloride 10 ml 02/14/21 07:43 02/14/21 13:32 Sodium Chloride Flush 0.9% 10 Ml Syringe IVP 10 ml PRN PRN Administration NEEDED PER PROVIDER ORDERS Sodium Chloride 10 ml 02/14/21 09:00 02/20/21 01:05 Sodium Chloride Flush 0.9% 10 Ml Syringe IVP 10 ml 0100,0900,1700 MANNY Administration - Lab Result Fish Bone Diagrams: 02/20/21 08:42 02/20/21 08:42 Subjective - Subjective Patient Reports: Other (He was resting comfortably in bed at time of exam. Expressive aphasia still noted but patient was more responsive today. He attempted to answer questions this is asked. Some words were discernable) Objective Vital Signs: Vital Signs - 24 hr 02/19/21 02/19/21 02/19/21 09:00 16:00 20:06 Temperature 36.8 C 37.3 C Heart Rate [ 76 75 78 Brachial] Heart Rate [ Monitoring electrodes] Respiratory 16 20 20 Rate Blood Pressure Blood Pressure 116/58 L 114/63 [Left Brachial artery] Blood Pressure 137/85 H [Right Brachial artery] O2 Saturation 96 96 96 02/19/21 02/19/21 02/20/21 20:45 23:30 06:00 Temperature 37.3 C 37.2 C Heart Rate [ 78 Brachial] Heart Rate [ 63 Monitoring electrodes] Respiratory 20 20 Rate Blood Pressure 114/63 Blood Pressure 112/56 L 135/78 H [Left Brachial artery] Blood Pressure [Right Brachial artery] O2 Saturation 97 95 02/20/21 08:18 Temperature 36.9 C Heart Rate [ 82 Brachial] Heart Rate [ Monitoring electrodes] Respiratory 20 Rate Blood Pressure Blood Pressure 134/67 H [Left Brachial artery] Blood Pressure [Right Brachial artery] O2 Saturation 97 Oxygen O2 Source Room air I&O (Last 24 Hrs): Intake and Output Totals x24h 02/18/21 02/19/21 02/20/21 23:59 23:59 23:59 Intake Total 1091 1512.22 1024 Output Total 1375 1350 310 Balance -284 162.22 714 Comments/Notes: General: Alert, No acute distress, Other (More responsive today. Some of his words are comprehensible Aphasic.) HEENT: PERRLA, EOMI Neck: Supple, No JVD Neuro: Alert, Focal Deficits (Right-sided weakness), Other (Aphasia.) Cardiovascular: Other (Irregularly irregular Rhythm) Respiratory: Chest non-tender, No respiratory distress, Breath sounds nml Abdomen: Normal bowel sounds, Soft, No tenderness, No masses Extremities: No clubbing, No cyanosis, No edema, No tenderness/swelling Skin: No rashes, No breakdown, No significant lesion - Results Results: Laboratory Results WBC 9.9 x10^3/uL (4.8-10.8) 02/19/21 06:11 RBC 4.84 10^6/uL (4.70-6.10) 02/19/21 06:11 Hgb 11.5 g/dL (14.0-18.0) L 02/19/21 06:11 Hct 37.3 % (42.0-52.0) L 02/19/21 06:11 MCV 77.1 fL (80.0-94.0) L 02/19/21 06:11 MCH 23.8 pg (27.0-31.0) L 02/19/21 06:11 MCHC 30.8 g/dL (32.0-36.0) L 02/19/21 06:11 RDW 18.1 % (12.0-15.0) H 02/19/21 06:11 Plt Count 255 10^3/uL (130-450) 02/19/21 06:11 MPV 9.8 fL (7.4-11.4) 02/19/21 06:11 Neut # (Auto) 8.4 10^3/uL (1.5-6.6) H 02/19/21 06:11 Lymph # (Auto) 0.7 10^3/uL (1.5-3.5) L 02/19/21 06:11 [place] # (Auto) 0.7 10^3/uL (0.0-1.0) 02/19/21 06:11 Eos # (Auto) 0.0 10^3/uL (0.0-0.7) 02/19/21 06:11 Baso # (Auto) 0.0 10^3/uL (0.0-0.1) 02/19/21 06:11 Absolute Nucleated RBC 0.00 x10^3/uL 02/19/21 06:11 Nucleated RBC % 0.0 /100WBC 02/19/21 06:11 ESR 1 mm/Hr (0-20) 02/14/21 06:14 PT 12.6 secs (9.9-12.6) 02/14/21 06:14 INR 1.1 (0.8-1.2) 02/14/21 06:14 APTT 23.1 secs (24.9-33.3) L 02/14/21 06:14 Sodium 133 mmol/L (135-145) L 02/19/21 06:11 Potassium 4.5 mmol/L (3.5-5.0) 02/19/21 06:11 Chloride 102 mmol/L (101-111) 02/19/21 06:11 Carbon Dioxide 22 mmol/L (21-32) 02/19/21 06:11 Anion Gap 9.0 (6-13) 02/19/21 06:11 BUN 14 mg/dL (6-20) 02/19/21 06:11 Creatinine 0.8 mg/dL (0.6-1.2) 02/19/21 06:11 Estimated GFR (MDRD) 118 (>89) 02/19/21 06:11 Glucose 111 mg/dL (70-100) H 02/19/21 06:11 POC Whole Bld Glucose 132 mg/dL (70 - 100) H 02/20/21 06:31 Estimat Average Glucose 111 mg/dL (70-100) H 02/14/21 08:16 Hemoglobin A1c % 5.5 % (4.27-6.07) 02/14/21 08:16 Calcium 8.7 mg/dL (8.5-10.3) 02/19/21 06:11 Phosphorus 3.7 mg/dL (2.5-4.6) 02/18/21 06:42 Magnesium 1.8 mg/dL (1.7-2.8) 02/18/21 06:42 Iron 75 ug/dL (45-182) 02/15/21 08:18 TIBC 371 ug/dL (250-450) 02/15/21 08:18 % Saturation 20 % (20-50) 02/15/21 08:18 Transferrin 265 mg/dL (180-329) 02/15/21 08:18 Ferritin 22.5 ng/mL (23.9-336.2) L 02/15/21 08:18 Total Bilirubin 0.8 mg/dL (0.2-1.0) 02/18/21 06:42 AST 79 IU/L (10-42) H 02/18/21 06:42 ALT 51 IU/L (10-60) 02/18/21 06:42 Alkaline Phosphatase 46 IU/L (42-121) 02/18/21 06:42 Total Protein 6.9 g/dL (6.7-8.2) 02/18/21 06:42 Albumin 2.9 g/dL (3.2-5.5) L 02/18/21 06:42 Globulin 4.0 g/dL (2.1-4.2) 02/18/21 06:42 Albumin/Globulin Ratio 0.7 (1.0-2.2) L 02/18/21 06:42 Prealbumin 13 mg/dL (18-45) L 02/18/21 06:42 Triglycerides 55 mg/dL (-149) 02/15/21 05:28 Cholesterol 137 mg/dL (-199) 02/15/21 05:28 LDL Cholesterol, Calc 61 mg/dL (-129) 02/15/21 05:28 VLDL Cholesterol 11 mg/dL 02/15/21 05:28 HDL Cholesterol 65 mg/dL (60-) 02/15/21 05:28 LDL/HDL Ratio 0.9 (<3.6) 02/15/21 05:28 Cholesterol/HDL Ratio 2.1 (<5.0) 02/15/21 05:28 Lipase 30 U/L (22-51) 02/14/21 06:14 TSH 1.03 uIU/mL (0.34-5.60) 02/15/21 08:18 Nasal Adenovirus (PCR) NOT DETECTED 02/14/21 06:30 Nasal B. parapertussis DNA (PCR) NOT DETECTED 02/14/21 06:30 Nasal Coronavir 229E PCR NOT DETECTED 02/14/21 06:30 Nasal Coronavir HKU1 PCR NOT DETECTED 02/14/21 06:30 Nasal Coronavir NL63 PCR NOT DETECTED 02/14/21 06:30 Nasal Coronavir OC43 PCR NOT DETECTED 02/14/21 06:30 Nasal Enterovir/Rhinovir PCR NOT DETECTED 02/14/21 06:30 Nasal Influenza B PCR NOT DETECTED 02/14/21 06:30 Nasal Influenza A PCR NOT DETECTED 02/14/21 06:30 Nasal Parainfluen 1 PCR NOT DETECTED 02/14/21 06:30 Nasal Parainfluen 2 PCR NOT DETECTED 02/14/21 06:30 Nasal Parainfluen 3 PCR NOT DETECTED 02/14/21 06:30 Nasal Parainfluen 4 PCR NOT DETECTED 02/14/21 06:30 Nasal RSV (PCR) NOT DETECTED 02/14/21 06:30 Nasal B.pertussis DNA PCR NOT DETECTED 02/14/21 06:30 Nasal C.pneumoniae (PCR) NOT DETECTED 02/14/21 06:30 [place] Human Metapneumo PCR NOT DETECTED 02/14/21 06:30 Nasal M.pneumoniae (PCR) NOT DETECTED 02/14/21 06:30 Nasal SARS-CoV-2 (PCR) NOT DETECTED 02/14/21 06:30 Ethyl Alcohol < 5.0 mg/dL 02/14/21 06:14 ABX Reporting Has patient been on IV antibiotics over the past 48 hours?: No
[2021-02-20 08:48] LABS: BASOPHILS % (AUTO) 0.3 %; EOSINOPHILS # (AUTO) 0.3 10^3/uL (0.0-0.7); EOSINOPHILS % (AUTO) 2.9 %; HCT - HEMATOCRIT 38.7 % (42.0-52.0); HGB - HEMOGLOBIN 12.1 g/dL (14.0-18.0); LYMPHOCYTES # (AUTO) 1.1 10^3/uL (1.5-3.5); MEAN CORPUSCULAR HEMOGLOBIN 24.2 pg (27.0-31.0); MEAN CORPUSCULAR HGB CONC 31.3 g/dL (32.0-36.0); MEAN CORPUSCULAR VOLUME 77.4 fL (80.0-94.0); MEAN PLATELET VOLUME 8.8 fL (7.4-11.4); MONOCYTES # (AUTO) 0.8 10^3/uL (0.0-1.0); MONOCYTES % (AUTO) 7.7 %; NEUTROPHILS # (AUTO) 8.7 10^3/uL (1.5-6.6); NEUTROPHILS % (AUTO) 78.8 %; PLT - PLATELET COUNT 259 10^3/uL (130-450); RED CELL DISTRIBUTION WIDTH 18.1 % (12.0-15.0)
[2021-02-20 08:57] LABS: CALCIUM 8.6 mg/dL (8.5-10.3); CREATININE 0.9 mg/dL (0.6-1.2); POTASSIUM 4.1 mmol/L (3.5-5.0)
--- NOTE | 2021-02-20 12:18 | PROVIDER PROGRESS NOTE ---
Subjective - Subjective Pt reports feeling: Improved Subjective: looks well. Objective - Vital Signs/Intake & Output Reviewed Vital Signs: Yes Vital Signs: Vital Signs x48h Temp Pulse Resp BP Pulse Ox 02/20/21 08:18 36.9 C 82 20 134/67 H 97 02/20/21 06:00 37.2 C 78 20 135/78 H 95 Intake & Output: Intake & Output 02/17/21 02/18/21 02/19/21 02/20/21 23:59 23:59 23:59 23:59 Intake Total 810 1091 1512.22 1104 Output Total 1135 1375 1350 310 Balance -325 -284 162.22 794 - Objective General Appearance: positive: No acute distress, Alert Respiratory: positive: No respiratory distress Abdomen: positive: Non-tender, No distention, Other (obese) Neurologic/Psychiatric: positive: Oriented x3 - Lab Results Fish Bones: 02/20/21 08:42 02/20/21 08:42 Other Labs: Lab Results x24hrs 02/20/21 02/20/21 02/20/21 Range/Units 08:42 08:42 06:31 WBC 11.0 H (4.8-10.8) x10^3/uL RBC 5.00 (4.70-6.10) 10^6/uL Hgb 12.1 L (14.0-18.0) g/dL Hct 38.7 L (42.0-52.0) % MCV 77.4 L (80.0-94.0) fL MCH 24.2 L (27.0-31.0) pg MCHC 31.3 L (32.0-36.0) g/dL RDW 18.1 H (12.0-15.0) % Plt Count 259 (130-450) 10^3/uL MPV 8.8 (7.4-11.4) fL Neut # (Auto) 8.7 H (1.5-6.6) 10^3/uL Lymph # (Auto) 1.1 L (1.5-3.5) 10^3/uL [place] # (Auto) 0.8 (0.0-1.0) 10^3/uL Eos # (Auto) 0.3 (0.0-0.7) 10^3/uL Baso # (Auto) 0.0 (0.0-0.1) 10^3/uL Absolute Nucleated RBC 0.00 x10^3/uL Nucleated RBC % 0.0 /100WBC Sodium 137 (135-145) mmol/L Potassium 4.1 (3.5-5.0) mmol/L Chloride 102 (101-111) mmol/L Carbon Dioxide 26 (21-32) mmol/L Anion Gap 9.0 (6-13) BUN 19 (6-20) mg/dL Creatinine 0.9 (0.6-1.2) mg/dL Estimated GFR (MDRD) 103 (>89) Glucose 132 H (70-100) mg/dL POC Whole Bld Glucose 132 H (70 - 100) mg/dL Calcium 8.6 (8.5-10.3) mg/dL 02/19/21 02/19/21 Range/Units 23:38 17:54 WBC (4.8-10.8) x10^3/uL RBC (4.70-6.10) 10^6/uL Hgb (14.0-18.0) g/dL Hct (42.0-52.0) % MCV (80.0-94.0) fL MCH (27.0-31.0) pg MCHC (32.0-36.0) g/dL RDW (12.0-15.0) % Plt Count (130-450) 10^3/uL MPV (7.4-11.4) fL Neut # (Auto) (1.5-6.6) 10^3/uL Lymph # (Auto) (1.5-3.5) 10^3/uL [place] # (Auto) (0.0-1.0) 10^3/uL Eos # (Auto) (0.0-0.7) 10^3/uL Baso # (Auto) (0.0-0.1) 10^3/uL Absolute Nucleated RBC x10^3/uL Nucleated RBC % /100WBC Sodium (135-145) mmol/L Potassium (3.5-5.0) mmol/L Chloride (101-111) mmol/L Carbon Dioxide (21-32) mmol/L Anion Gap (6-13) BUN (6-20) mg/dL Creatinine (0.6-1.2) mg/dL Estimated GFR (MDRD) (>89) Glucose (70-100) mg/dL POC Whole Bld Glucose 140 H 115 H (70 - 100) mg/dL Calcium (8.5-10.3) mg/dL Assessment/Plan - Problem List (1) Cerebrovascular accident (CVA) Impression: He is able to protect his airway while lying flat. No choking. PEG placement is not possible due to liver or colon overlying his stomach. He is not a candidate at [facility] for laparotomy and open feeding tube placement. Morbidly obese and ASA 4. Risk is prohibitively high to offer here. We do not have laparoscopic feeding tube placement capability here. Qualifiers: CVA mechanism: embolism Precerebral and cerebral artery: middle cerebral artery Laterality of affected vessel: left Qualified Code(s): I63.412 - Cerebral infarction due to embolism of left middle cerebral artery
[2021-02-20] MEDS: ATORVASTATIN 40 MG TABLET NG SCH (20:20)
[2021-02-21] MEDS: INSULIN REGULAR HUMAN 300 UNIT/3 ML VIAL SUBQ SCH ×4 (00:08→17:52)
[2021-02-21] MEDS: SODIUM CHLORIDE FLUSH 0.9% 10 ML SYRINGE IVP SCH ×3 (00:27→15:53)
[2021-02-21 06:08] LABS: BASOPHILS % (AUTO) 0.4 %; EOSINOPHILS # (AUTO) 0.4 10^3/uL (0.0-0.7); EOSINOPHILS % (AUTO) 3.9 %; HCT - HEMATOCRIT 38.4 % (42.0-52.0); HGB - HEMOGLOBIN 11.7 g/dL (14.0-18.0); LYMPHOCYTES # (AUTO) 1.4 10^3/uL (1.5-3.5); LYMPHOCYTES % (AUTO) 15.1 %; MEAN CORPUSCULAR HEMOGLOBIN 23.7 pg (27.0-31.0); MEAN CORPUSCULAR HGB CONC 30.5 g/dL (32.0-36.0); MEAN CORPUSCULAR VOLUME 77.9 fL (80.0-94.0); MEAN PLATELET VOLUME 9.1 fL (7.4-11.4); MONOCYTES # (AUTO) 0.9 10^3/uL (0.0-1.0); MONOCYTES % (AUTO) 9.2 %; NEUTROPHILS # (AUTO) 6.7 10^3/uL (1.5-6.6); PLT - PLATELET COUNT 245 10^3/uL (130-450); RED BLOOD COUNT 4.93 10^6/uL (4.70-6.10); RED CELL DISTRIBUTION WIDTH 18.3 % (12.0-15.0); WHITE BLOOD COUNT 9.5 x10^3/uL (4.8-10.8)
[2021-02-21 06:21] LABS: CALCIUM 8.4 mg/dL (8.5-10.3); CREATININE 0.8 mg/dL (0.6-1.2); PHOSPHORUS 4.1 mg/dL (2.5-4.6); POTASSIUM 3.9 mmol/L (3.5-5.0)
[2021-02-21] MEDS: ASPIRIN CHEW 81 MG TABLET NG SCH (09:09)
[2021-02-21] MEDS: lisinopriL 20 MG TABLET PO SCH (09:09)
[2021-02-21] MEDS: METOPROLOL TARTRATE 25 MG TABLET NG SCH ×2 (09:09→20:41)
--- NOTE | 2021-02-21 13:25 | PROVIDER PROGRESS NOTE ---
Assessment/Plan - Problem List (1) Cerebrovascular accident (CVA) Qualifiers: CVA mechanism: embolism Precerebral and cerebral artery: middle cerebral artery Laterality of affected vessel: left Qualified Code(s): I63.412 - Cerebral infarction due to embolism of left middle cerebral artery Assessment/Plan: Unfortunately patient has not recovered Significant neurological function since his stroke. Right sided weakness persists Patient continues to be almost completely aphasic. Comprehension Still compromised, but possibly somewhat improved Patient unable to swallow secondary to stroke Currently with NG tube, plans for PEG tube placement later this week Continue PT/OT, with plans for referral to inpatient rehab. [facility] has accepted, but is pending insurance authorization Continue high-dose statin Continue aspirin Consider adding Plavix, Will do chart review to rule out contraindications Continue blood pressure control (2) Aphasia Assessment/Plan: Not much changed Will have speech therapy reevaluate prior to discharge, but no need for daily eval's as symptoms have been stable (3) Hypertension Assessment/Plan: Well-controlled Continue lisinopril and metoprolol (4) Atrial fibrillation Qualifiers: Atrial fibrillation type: longstanding persistent Qualified Code(s): I48.11 - Longstanding persistent atrial fibrillation Assessment/Plan: Rate controlled ContinueMetoprolol Per chart review, neurology had recommended deferral of anticoagulation due to risk of ischemic conversion Will defer to outpatient management - Current Meds Current Meds: Current Medications Generic Name Dose Route Start Last Admin Trade Name Freq PRN Reason Stop Dose Admin Acetaminophen 650 mg 02/14/21 07:43 02/16/21 11:16 Acetaminophen 325 Mg Tablet PO 650 mg Q4HR PRN Administration Pain 1 to 4 Aspirin 81 mg 02/15/21 11:00 02/21/21 09:09 Aspirin Chew 81 Mg Tablet NG 81 mg DAILY MANNY Administration Atorvastatin Calcium 80 mg 02/15/21 21:00 02/20/21 20:20 Atorvastatin 40 Mg Tablet NG 80 mg QPM MANNY Administration Insulin Human Regular 1 - 5 unit 02/15/21 12:00 02/21/21 11:37 Insulin Regular Human 300 Unit/3 Ml Vial SUBQ Not Given Q6HR MANNY Protocol Lisinopril 20 mg 02/18/21 09:00 02/21/21 09:09 Lisinopril 20 Mg Tablet PO 20 mg DAILY MANNY Administration Metoprolol Tartrate 25 mg 02/15/21 21:00 02/21/21 09:09 Metoprolol Tartrate 25 Mg Tablet NG 25 mg BID MANNY Administration Sodium Chloride 10 ml 02/14/21 07:43 02/14/21 13:32 Sodium Chloride Flush 0.9% 10 Ml Syringe IVP 10 ml PRN PRN Administration NEEDED PER PROVIDER ORDERS Sodium Chloride 10 ml 02/14/21 09:00 02/21/21 09:08 Sodium Chloride Flush 0.9% 10 Ml Syringe IVP 10 ml 0100,0900,1700 MANNY Administration - Lab Result Fish Bone Diagrams: 02/21/21 06:01 02/21/21 06:01 - EKG Results EKG Interpreted Independently: Yes - Diagnostic Imaging Results Diagnostic Imaging Results: Final report reviewed - Additional Planning Condition/Complexity: Guarded Plan Discussed with:: Patient, Other (Patient's sister) Subjective - Subjective Patient Reports: Other (Feels about the same) Objective Vital Signs: Vital Signs - 24 hr 02/20/21 02/20/21 02/20/21 15:41 20:17 20:19 Temperature 37.1 C 37.1 C Heart Rate [ 91 87 Brachial] Heart Rate [ Monitoring electrodes] Respiratory 24 16 Rate Blood Pressure 139/82 H Blood Pressure 109/61 139/82 H [Left Brachial artery] O2 Saturation 94 97 02/21/21 02/21/21 02/21/21 00:19 05:00 09:00 Temperature 36 C L 36.4 C L 37.1 C Heart Rate [ 73 86 Brachial] Heart Rate [ 75 Monitoring electrodes] Respiratory 20 20 20 Rate Blood Pressure Blood Pressure 121/61 122/75 117/70 [Left Brachial artery] O2 Saturation 97 98 97 02/21/21 09:09 Temperature Heart Rate [ Brachial] Heart Rate [ Monitoring electrodes] Respiratory Rate Blood Pressure 117/70 Blood Pressure [Left Brachial artery] O2 Saturation Oxygen O2 Source Room air I&O (Last 24 Hrs): Intake and Output Totals x24h 02/19/21 02/20/21 02/21/21 23:59 23:59 23:59 Intake Total 1512.22 2774 1126 Output Total 1350 1135 575 Balance 162.22 1639 551 General: Alert, Other (Sitting upright without much assistance but still unsteady. Aphasia significant with speech difficult to understand, and comprehension also unclear if intact) Neck: Supple Neuro: Alert, Focal Deficits, Other (Complete right-sided weakness, left upper and lower extremity) Cardiovascular: Normal S1, Normal S2, No murmurs, Other (Irregularly irregularRhythm) Respiratory: Chest non-tender, No respiratory distress Extremities: No tenderness/swelling Skin: No rashes - Results Results: Laboratory Results WBC 9.5 x10^3/uL (4.8-10.8) 02/21/21 06:01 RBC 4.93 10^6/uL (4.70-6.10) 02/21/21 06:01 Hgb 11.7 g/dL (14.0-18.0) L 02/21/21 06:01 Hct 38.4 % (42.0-52.0) L 02/21/21 06:01 MCV 77.9 fL (80.0-94.0) L 02/21/21 06:01 MCH 23.7 pg (27.0-31.0) L 02/21/21 06:01 MCHC 30.5 g/dL (32.0-36.0) L 02/21/21 06:01 RDW 18.3 % (12.0-15.0) H 02/21/21 06:01 Plt Count 245 10^3/uL (130-450) 02/21/21 06:01 MPV 9.1 fL (7.4-11.4) 02/21/21 06:01 Neut # (Auto) 6.7 10^3/uL (1.5-6.6) H 02/21/21 06:01 Lymph # (Auto) 1.4 10^3/uL (1.5-3.5) L 02/21/21 06:01 [place] # (Auto) 0.9 10^3/uL (0.0-1.0) 02/21/21 06:01 Eos # (Auto) 0.4 10^3/uL (0.0-0.7) 02/21/21 06:01 Baso # (Auto) 0.0 10^3/uL (0.0-0.1) 02/21/21 06:01 Absolute Nucleated RBC 0.00 x10^3/uL 02/21/21 06:01 Nucleated RBC % 0.0 /100WBC 02/21/21 06:01 ESR 1 mm/Hr (0-20) 02/14/21 06:14 PT 12.6 secs (9.9-12.6) 02/14/21 06:14 INR 1.1 (0.8-1.2) 02/14/21 06:14 APTT 23.1 secs (24.9-33.3) L 02/14/21 06:14 Sodium 135 mmol/L (135-145) 02/21/21 06:01 Potassium 3.9 mmol/L (3.5-5.0) 02/21/21 06:01 Chloride 100 mmol/L (101-111) L 02/21/21 06:01 Carbon Dioxide 25 mmol/L (21-32) 02/21/21 06:01 Anion Gap 10.0 (6-13) 02/21/21 06:01 BUN 17 mg/dL (6-20) 02/21/21 06:01 Creatinine 0.8 mg/dL (0.6-1.2) 02/21/21 06:01 Estimated GFR (MDRD) 118 (>89) 02/21/21 06:01 Glucose 141 mg/dL (70-100) H 02/21/21 06:01 POC Whole Bld Glucose 107 mg/dL (70 - 100) H 02/21/21 11:34 Estimat Average Glucose 111 mg/dL (70-100) H 02/14/21 08:16 Hemoglobin A1c % 5.5 % (4.27-6.07) 02/14/21 08:16 Calcium 8.4 mg/dL (8.5-10.3) L 02/21/21 06:01 Phosphorus 4.1 mg/dL (2.5-4.6) 02/21/21 06:01 Magnesium 2.0 mg/dL (1.7-2.8) 02/21/21 06:01 Iron 75 ug/dL (45-182) 02/15/21 08:18 TIBC 371 ug/dL (250-450) 02/15/21 08:18 % Saturation 20 % (20-50) 02/15/21 08:18 Transferrin 265 mg/dL (180-329) 02/15/21 08:18 Ferritin 22.5 ng/mL (23.9-336.2) L 02/15/21 08:18 Total Bilirubin 0.8 mg/dL (0.2-1.0) 02/18/21 06:42 AST 79 IU/L (10-42) H 02/18/21 06:42 ALT 51 IU/L (10-60) 02/18/21 06:42 Alkaline Phosphatase 46 IU/L (42-121) 02/18/21 06:42 Total Protein 6.9 g/dL (6.7-8.2) 02/18/21 06:42 Albumin 2.9 g/dL (3.2-5.5) L 02/18/21 06:42 Globulin 4.0 g/dL (2.1-4.2) 02/18/21 06:42 Albumin/Globulin Ratio 0.7 (1.0-2.2) L 02/18/21 06:42 Prealbumin 12 mg/dL (18-45) L 02/21/21 06:01 Triglycerides 55 mg/dL (-149) 02/15/21 05:28 Cholesterol 137 mg/dL (-199) 02/15/21 05:28 LDL Cholesterol, Calc 61 mg/dL (-129) 02/15/21 05:28 VLDL Cholesterol 11 mg/dL 02/15/21 05:28 HDL Cholesterol 65 mg/dL (60-) 02/15/21 05:28 LDL/HDL Ratio 0.9 (<3.6) 02/15/21 05:28 Cholesterol/HDL Ratio 2.1 (<5.0) 02/15/21 05:28 Lipase 30 U/L (22-51) 02/14/21 06:14 TSH 1.03 uIU/mL (0.34-5.60) 02/15/21 08:18 Nasal Adenovirus (PCR) NOT DETECTED 02/14/21 06:30 Nasal B. parapertussis DNA (PCR) NOT DETECTED 02/14/21 06:30 Nasal Coronavir 229E PCR NOT DETECTED 02/14/21 06:30 Nasal Coronavir HKU1 PCR NOT DETECTED 02/14/21 06:30 Nasal Coronavir NL63 PCR NOT DETECTED 02/14/21 06:30 Nasal Coronavir OC43 PCR NOT DETECTED 02/14/21 06:30 Nasal Enterovir/Rhinovir PCR NOT DETECTED 02/14/21 06:30 Nasal Influenza B PCR NOT DETECTED 02/14/21 06:30 Nasal Influenza A PCR NOT DETECTED 02/14/21 06:30 Nasal Parainfluen 1 PCR NOT DETECTED 02/14/21 06:30 Nasal Parainfluen 2 PCR NOT DETECTED 02/14/21 06:30 Nasal Parainfluen 3 PCR NOT DETECTED 02/14/21 06:30 Nasal Parainfluen 4 PCR NOT DETECTED 02/14/21 06:30 Nasal RSV (PCR) NOT DETECTED 02/14/21 06:30 Nasal B.pertussis DNA PCR NOT DETECTED 02/14/21 06:30 Nasal C.pneumoniae (PCR) NOT DETECTED 02/14/21 06:30 [place] Human Metapneumo PCR NOT DETECTED 02/14/21 06:30 Nasal M.pneumoniae (PCR) NOT DETECTED 02/14/21 06:30 Nasal SARS-CoV-2 (PCR) NOT DETECTED 02/14/21 06:30 Ethyl Alcohol < 5.0 mg/dL 02/14/21 06:14 ABX Reporting Has patient been on IV antibiotics over the past 48 hours?: No Current Medications - Current Medications Current Medications: Current Medications Generic Name Dose Route Start Last Admin Trade Name Freq PRN Reason Stop Dose Admin Acetaminophen 650 mg 02/14/21 07:43 02/16/21 11:16 Acetaminophen 325 Mg Tablet PO 650 mg Q4HR PRN Administration Pain 1 to 4 Aspirin 81 mg 02/15/21 11:00 02/21/21 09:09 Aspirin Chew 81 Mg Tablet NG 81 mg DAILY MANNY Administration Atorvastatin Calcium 80 mg 02/15/21 21:00 02/20/21 20:20 Atorvastatin 40 Mg Tablet NG 80 mg QPM MANNY Administration Insulin Human Regular 1 - 5 unit 02/15/21 12:00 02/21/21 11:37 Insulin Regular Human 300 Unit/3 Ml Vial SUBQ Not Given Q6HR MANNY Protocol Lisinopril 20 mg 02/18/21 09:00 02/21/21 09:09 Lisinopril 20 Mg Tablet PO 20 mg DAILY MANNY Administration Metoprolol Tartrate 25 mg 02/15/21 21:00 02/21/21 09:09 Metoprolol Tartrate 25 Mg Tablet NG 25 mg BID MANNY Administration Sodium Chloride 10 ml 02/14/21 07:43 02/14/21 13:32 Sodium Chloride Flush 0.9% 10 Ml Syringe IVP 10 ml PRN PRN Administration NEEDED PER PROVIDER ORDERS Sodium Chloride 10 ml 02/14/21 09:00 02/21/21 09:08 Sodium Chloride Flush 0.9% 10 Ml Syringe IVP 10 ml 0100,0900,1700 MANNY Administration
[2021-02-21] MEDS: ATORVASTATIN 40 MG TABLET NG SCH (20:40)
[2021-02-21] MEDS: ACETAMINOPHEN 325 MG TABLET PO PRN (20:40)
[2021-02-22] MEDS: INSULIN REGULAR HUMAN 300 UNIT/3 ML VIAL SUBQ SCH ×5 (00:02→23:47)
[2021-02-22 05:53] LABS: BASOPHILS # (AUTO) 0.1 10^3/uL (0.0-0.1); BASOPHILS % (AUTO) 0.6 %; EOSINOPHILS # (AUTO) 0.5 10^3/uL (0.0-0.7); EOSINOPHILS % (AUTO) 5.1 %; HCT - HEMATOCRIT 37.9 % (42.0-52.0); HGB - HEMOGLOBIN 11.8 g/dL (14.0-18.0); LYMPHOCYTES # (AUTO) 1.4 10^3/uL (1.5-3.5); MEAN CORPUSCULAR HEMOGLOBIN 24.2 pg (27.0-31.0); MEAN CORPUSCULAR HGB CONC 31.1 g/dL (32.0-36.0); MEAN CORPUSCULAR VOLUME 77.7 fL (80.0-94.0); MEAN PLATELET VOLUME 9.1 fL (7.4-11.4); MONOCYTES # (AUTO) 0.8 10^3/uL (0.0-1.0); MONOCYTES % (AUTO) 8.7 %; NEUTROPHILS # (AUTO) 6.4 10^3/uL (1.5-6.6); NEUTROPHILS % (AUTO) 70.3 %; PLT - PLATELET COUNT 236 10^3/uL (130-450); RED BLOOD COUNT 4.88 10^6/uL (4.70-6.10); WHITE BLOOD COUNT 9.1 x10^3/uL (4.8-10.8)
[2021-02-22 06:01] LABS: CALCIUM 8.3 mg/dL (8.5-10.3); CREATININE 0.8 mg/dL (0.6-1.2); POTASSIUM 4.1 mmol/L (3.5-5.0)
[2021-02-22] MEDS: SODIUM CHLORIDE FLUSH 0.9% 10 ML SYRINGE IVP SCH ×4 (07:59→23:47)
[2021-02-22] MEDS: lisinopriL 20 MG TABLET PO SCH (10:06)
[2021-02-22] MEDS: METOPROLOL TARTRATE 25 MG TABLET NG SCH ×2 (10:06→23:37)
[2021-02-22] MEDS: ASPIRIN CHEW 81 MG TABLET NG SCH (10:06)
[2021-02-22] MEDS: ZINC OXIDE 20% OINT 30 GM TUBE TOP PRN (17:56)
--- NOTE | 2021-02-22 18:11 | PROVIDER PROGRESS NOTE ---
Assessment/Plan - Problem List (1) Cerebrovascular accident (CVA) Qualifiers: CVA mechanism: embolism Precerebral and cerebral artery: middle cerebral artery Laterality of affected vessel: left Qualified Code(s): I63.412 - Cerebral infarction due to embolism of left middle cerebral artery Assessment/Plan: Assessment/Plan: Unfortunately patient has not recovered Significant neurological function since his stroke. Right sided weakness persists Patient continues to be almost completely aphasic. Comprehension Still compromised, but possibly somewhat improved Patient unable to swallow secondary to stroke Currently with NG tube, plans for PEG tube placement later this week Continue PT/OT, with plans for referral to inpatient rehab. [facility] has accepted, but is pending insurance authorization Continue high-dose statin Continue aspirin Consider adding Plavix, Will do chart review to rule out contraindications Continue blood pressure control (2) Aphasia Assessment/Plan: Not much changed Will have speech therapy reevaluate prior to discharge, but no need for daily eval's as symptoms have been stable (3) Hypertension Assessment/Plan: Well-controlled Continue lisinopril and metoprolol (4) Atrial fibrillation Qualifiers: Atrial fibrillation type: longstanding persistent Qualified Code(s): I48.11 - Longstanding persistent atrial fibrillation Assessment/Plan: Rate controlled ContinueMetoprolol Per chart review, neurology had recommended deferral of anticoagulation due to risk of ischemic conversion Will defer to outpatient management - Current Meds Current Meds: Current Medications Generic Name Dose Route Start Last Admin Trade Name Freq PRN Reason Stop Dose Admin Acetaminophen 650 mg 02/14/21 07:43 02/21/21 20:40 Acetaminophen 325 Mg Tablet PO 650 mg Q4HR PRN Administration Pain 1 to 4 Aspirin 81 mg 02/15/21 11:00 02/22/21 10:06 Aspirin Chew 81 Mg Tablet NG 81 mg DAILY MANNY Administration Atorvastatin Calcium 80 mg 02/15/21 21:00 02/21/21 20:40 Atorvastatin 40 Mg Tablet NG 80 mg QPM MANNY Administration Insulin Human Regular 1 - 5 unit 02/15/21 12:00 02/22/21 17:18 Insulin Regular Human 300 Unit/3 Ml Vial SUBQ Not Given Q6HR MANNY Protocol Lisinopril 20 mg 02/18/21 09:00 02/22/21 10:06 Lisinopril 20 Mg Tablet PO 20 mg DAILY MANNY Administration Metoprolol Tartrate 25 mg 02/15/21 21:00 02/22/21 10:06 Metoprolol Tartrate 25 Mg Tablet NG 25 mg BID MANNY Administration Multi-Ingredient Ointment 1 applic 02/21/21 22:33 02/22/21 17:56 Zinc Oxide 20% Oint 30 Gm Tube TOP 1 applic PRN PRN Administration Skin Care Sodium Chloride 10 ml 02/14/21 07:43 02/14/21 13:32 Sodium Chloride Flush 0.9% 10 Ml Syringe IVP 10 ml PRN PRN Administration NEEDED PER PROVIDER ORDERS Sodium Chloride 10 ml 02/14/21 09:00 02/22/21 10:09 Sodium Chloride Flush 0.9% 10 Ml Syringe IVP 10 ml 0100,0900,1700 MANNY Administration - Lab Result Fish Bone Diagrams: 02/22/21 05:45 02/22/21 05:45 - Additional Planning My Orders: My Active Orders 02/24/21 00:01 NPO for Test [DIET] Subjective - Subjective Patient Reports: No Complaints Objective Vital Signs: Vital Signs - 24 hr 02/21/21 02/21/21 02/21/21 20:13 20:41 21:46 Temperature 37.8 C 37.3 C Heart Rate [ 74 Brachial] Heart Rate [ Monitoring electrodes] Respiratory 20 Rate Blood Pressure 104/66 Blood Pressure 104/55 L [Left Brachial artery] O2 Saturation 98 02/21/21 02/22/21 02/22/21 23:58 02:00 05:45 Temperature 37.2 C 36.8 C Heart Rate [ 67 77 Brachial] Heart Rate [ 64 Monitoring electrodes] Respiratory 18 18 Rate Blood Pressure Blood Pressure 97/44 L 118/68 116/54 L [Left Brachial artery] O2 Saturation 95 98 02/22/21 02/22/21 02/22/21 07:40 11:04 17:38 Temperature 37.2 C 37 C 37 C Heart Rate [ 62 75 74 Brachial] Heart Rate [ Monitoring electrodes] Respiratory 20 20 20 Rate Blood Pressure Blood Pressure 123/67 125/73 129/55 L [Left Brachial artery] O2 Saturation 97 99 98 Oxygen O2 Source Room air I&O (Last 24 Hrs): Intake and Output Totals x24h 02/20/21 02/21/21 02/22/21 23:59 23:59 23:59 Intake Total 2774 1206 2824 Output Total 1135 1025 880 Balance 9153 389 7569 General: Alert, No acute distress HEENT: Atraumatic Neuro: Alert, Focal Deficits, Speech Slurred, Other (Aphasia significant with speech difficult to understand, and comprehension also unclear if intact) Cardiovascular: Normal S1, Normal S2, Other (rregularly irregularRhythm) Respiratory: Chest non-tender, No respiratory distress, Breath sounds nml Abdomen: Normal bowel sounds Skin: No rashes - Results Results: Laboratory Results WBC 9.1 x10^3/uL (4.8-10.8) 02/22/21 05:45 RBC 4.88 10^6/uL (4.70-6.10) 02/22/21 05:45 Hgb 11.8 g/dL (14.0-18.0) L 02/22/21 05:45 Hct 37.9 % (42.0-52.0) L 02/22/21 05:45 MCV 77.7 fL (80.0-94.0) L 02/22/21 05:45 MCH 24.2 pg (27.0-31.0) L 02/22/21 05:45 MCHC 31.1 g/dL (32.0-36.0) L 02/22/21 05:45 RDW 18.0 % (12.0-15.0) H 02/22/21 05:45 Plt Count 236 10^3/uL (130-450) 02/22/21 05:45 MPV 9.1 fL (7.4-11.4) 02/22/21 05:45 Neut # (Auto) 6.4 10^3/uL (1.5-6.6) 02/22/21 05:45 Lymph # (Auto) 1.4 10^3/uL (1.5-3.5) L 02/22/21 05:45 [place] # (Auto) 0.8 10^3/uL (0.0-1.0) 02/22/21 05:45 Eos # (Auto) 0.5 10^3/uL (0.0-0.7) 02/22/21 05:45 Baso # (Auto) 0.1 10^3/uL (0.0-0.1) 02/22/21 05:45 Absolute Nucleated RBC 0.00 x10^3/uL 02/22/21 05:45 Nucleated RBC % 0.0 /100WBC 02/22/21 05:45 ESR 1 mm/Hr (0-20) 02/14/21 06:14 PT 12.6 secs (9.9-12.6) 02/14/21 06:14 INR 1.1 (0.8-1.2) 02/14/21 06:14 APTT 23.1 secs (24.9-33.3) L 02/14/21 06:14 Sodium 134 mmol/L (135-145) L 02/22/21 05:45 Potassium 4.1 mmol/L (3.5-5.0) 02/22/21 05:45 Chloride 100 mmol/L (101-111) L 02/22/21 05:45 Carbon Dioxide 26 mmol/L (21-32) 02/22/21 05:45 Anion Gap 8.0 (6-13) 02/22/21 05:45 BUN 15 mg/dL (6-20) 02/22/21 05:45 Creatinine 0.8 mg/dL (0.6-1.2) 02/22/21 05:45 Estimated GFR (MDRD) 118 (>89) 02/22/21 05:45 Glucose 133 mg/dL (70-100) H 02/22/21 05:45 POC Whole Bld Glucose 99 mg/dL (70 - 100) 02/22/21 17:13 Estimat Average Glucose 111 mg/dL (70-100) H 02/14/21 08:16 Hemoglobin A1c % 5.5 % (4.27-6.07) 02/14/21 08:16 Calcium 8.3 mg/dL (8.5-10.3) L 02/22/21 05:45 Phosphorus 4.1 mg/dL (2.5-4.6) 02/21/21 06:01 Magnesium 2.0 mg/dL (1.7-2.8) 02/21/21 06:01 Iron 75 ug/dL (45-182) 02/15/21 08:18 TIBC 371 ug/dL (250-450) 02/15/21 08:18 % Saturation 20 % (20-50) 02/15/21 08:18 Transferrin 265 mg/dL (180-329) 02/15/21 08:18 Ferritin 22.5 ng/mL (23.9-336.2) L 02/15/21 08:18 Total Bilirubin 0.8 mg/dL (0.2-1.0) 02/18/21 06:42 AST 79 IU/L (10-42) H 02/18/21 06:42 ALT 51 IU/L (10-60) 02/18/21 06:42 Alkaline Phosphatase 46 IU/L (42-121) 02/18/21 06:42 Total Protein 6.9 g/dL (6.7-8.2) 02/18/21 06:42 Albumin 2.9 g/dL (3.2-5.5) L 02/18/21 06:42 Globulin 4.0 g/dL (2.1-4.2) 02/18/21 06:42 Albumin/Globulin Ratio 0.7 (1.0-2.2) L 02/18/21 06:42 Prealbumin 12 mg/dL (18-45) L 02/21/21 06:01 Triglycerides 55 mg/dL (-149) 02/15/21 05:28 Cholesterol 137 mg/dL (-199) 02/15/21 05:28 LDL Cholesterol, Calc 61 mg/dL (-129) 02/15/21 05:28 VLDL Cholesterol 11 mg/dL 02/15/21 05:28 HDL Cholesterol 65 mg/dL (60-) 02/15/21 05:28 LDL/HDL Ratio 0.9 (<3.6) 02/15/21 05:28 Cholesterol/HDL Ratio 2.1 (<5.0) 02/15/21 05:28 Lipase 30 U/L (22-51) 02/14/21 06:14 TSH 1.03 uIU/mL (0.34-5.60) 02/15/21 08:18 Nasal Adenovirus (PCR) NOT DETECTED 02/14/21 06:30 Nasal B. parapertussis DNA (PCR) NOT DETECTED 02/14/21 06:30 Nasal Coronavir 229E PCR NOT DETECTED 02/14/21 06:30 Nasal Coronavir HKU1 PCR NOT DETECTED 02/14/21 06:30 Nasal Coronavir NL63 PCR NOT DETECTED 02/14/21 06:30 Nasal Coronavir OC43 PCR NOT DETECTED 02/14/21 06:30 Nasal Enterovir/Rhinovir PCR NOT DETECTED 02/14/21 06:30 Nasal Influenza B PCR NOT DETECTED 02/14/21 06:30 Nasal Influenza A PCR NOT DETECTED 02/14/21 06:30 Nasal Parainfluen 1 PCR NOT DETECTED 02/14/21 06:30 Nasal Parainfluen 2 PCR NOT DETECTED 02/14/21 06:30 Nasal Parainfluen 3 PCR NOT DETECTED 02/14/21 06:30 Nasal Parainfluen 4 PCR NOT DETECTED 02/14/21 06:30 Nasal RSV (PCR) NOT DETECTED 02/14/21 06:30 Nasal B.pertussis DNA PCR NOT DETECTED 02/14/21 06:30 Nasal C.pneumoniae (PCR) NOT DETECTED 02/14/21 06:30 [place] Human Metapneumo PCR NOT DETECTED 02/14/21 06:30 Nasal M.pneumoniae (PCR) NOT DETECTED 02/14/21 06:30 Nasal SARS-CoV-2 (PCR) NOT DETECTED 02/14/21 06:30 Ethyl Alcohol < 5.0 mg/dL 02/14/21 06:14 ABX Reporting Has patient been on IV antibiotics over the past 48 hours?: No Current Medications - Current Medications Current Medications: Current Medications Generic Name Dose Route Start Last Admin Trade Name Freq PRN Reason Stop Dose Admin Acetaminophen 650 mg 02/14/21 07:43 02/21/21 20:40 Acetaminophen 325 Mg Tablet PO 650 mg Q4HR PRN Administration Pain 1 to 4 Aspirin 81 mg 02/15/21 11:00 02/22/21 10:06 Aspirin Chew 81 Mg Tablet NG 81 mg DAILY MANNY Administration Atorvastatin Calcium 80 mg 02/15/21 21:00 02/21/21 20:40 Atorvastatin 40 Mg Tablet NG 80 mg QPM MANNY Administration Insulin Human Regular 1 - 5 unit 02/15/21 12:00 02/22/21 17:18 Insulin Regular Human 300 Unit/3 Ml Vial SUBQ Not Given Q6HR MANNY Protocol Lisinopril 20 mg 02/18/21 09:00 02/22/21 10:06 Lisinopril 20 Mg Tablet PO 20 mg DAILY MANNY Administration Metoprolol Tartrate 25 mg 02/15/21 21:00 02/22/21 10:06 Metoprolol Tartrate 25 Mg Tablet NG 25 mg BID MANNY Administration Multi-Ingredient Ointment 1 applic 02/21/21 22:33 02/22/21 17:56 Zinc Oxide 20% Oint 30 Gm Tube TOP 1 applic PRN PRN Administration Skin Care Sodium Chloride 10 ml 02/14/21 07:43 02/14/21 13:32 Sodium Chloride Flush 0.9% 10 Ml Syringe IVP 10 ml PRN PRN Administration NEEDED PER PROVIDER ORDERS Sodium Chloride 10 ml 02/14/21 09:00 02/22/21 10:09 Sodium Chloride Flush 0.9% 10 Ml Syringe IVP 10 ml 0100,0900,1700 MANNY Administration
[2021-02-22] MEDS: ATORVASTATIN 40 MG TABLET NG SCH (23:37)
[2021-02-23 06:14] LABS: BASOPHILS % (AUTO) 0.3 %; EOSINOPHILS # (AUTO) 0.3 10^3/uL (0.0-0.7); EOSINOPHILS % (AUTO) 3.4 %; HCT - HEMATOCRIT 37.3 % (42.0-52.0); HGB - HEMOGLOBIN 11.6 g/dL (14.0-18.0); LYMPHOCYTES # (AUTO) 1.2 10^3/uL (1.5-3.5); MEAN CORPUSCULAR HGB CONC 31.1 g/dL (32.0-36.0); MEAN CORPUSCULAR VOLUME 77.2 fL (80.0-94.0); MEAN PLATELET VOLUME 9.2 fL (7.4-11.4); MONOCYTES # (AUTO) 0.7 10^3/uL (0.0-1.0); MONOCYTES % (AUTO) 7.7 %; NEUTROPHILS # (AUTO) 7.3 10^3/uL (1.5-6.6); NEUTROPHILS % (AUTO) 76.2 %; PLT - PLATELET COUNT 246 10^3/uL (130-450); RED BLOOD COUNT 4.83 10^6/uL (4.70-6.10); RED CELL DISTRIBUTION WIDTH 17.7 % (12.0-15.0); WHITE BLOOD COUNT 9.6 x10^3/uL (4.8-10.8)
[2021-02-23 06:23] LABS: CALCIUM 8.5 mg/dL (8.5-10.3); CREATININE 0.7 mg/dL (0.6-1.2); POTASSIUM 4.2 mmol/L (3.5-5.0)
[2021-02-23] MEDS: INSULIN REGULAR HUMAN 300 UNIT/3 ML VIAL SUBQ SCH ×3 (07:54→19:38)
[2021-02-23] MEDS: SODIUM CHLORIDE FLUSH 0.9% 10 ML SYRINGE IVP SCH ×3 (09:00→23:22)
[2021-02-23] MEDS: lisinopriL 20 MG TABLET PO SCH (13:38)
[2021-02-23] MEDS: ASPIRIN CHEW 81 MG TABLET NG SCH (13:38)
[2021-02-23] MEDS: METOPROLOL TARTRATE 25 MG TABLET NG SCH ×2 (13:38→20:28)
--- NOTE | 2021-02-23 13:59 | PROVIDER PROGRESS NOTE ---
Assessment/Plan - Problem List (1) Cerebrovascular accident (CVA) Qualifiers: CVA mechanism: embolism Precerebral and cerebral artery: middle cerebral artery Laterality of affected vessel: left Qualified Code(s): I63.412 - Cerebral infarction due to embolism of left middle cerebral artery Assessment/Plan: Right sided weakness Somewhat improved today in the right lower extremity, able to lift his right foot off the bed right upper extremity still flaccid Aphasia continues but is also somewhat improved. Was able to answer a couple of questions with direct yes no answers today Comprehension seems to be improved as well Patient unable to swallow secondary to stroke NG tube has clotted and had to be removed, revealing a kink Since there are plans for PEG tube placement tomorrow, will defer replacing the NG at this time Continue PT/OT, with plans for referral to inpatient rehab. Loc[facility] has accepted, but is pending insurance authorization Continue high-dose statin Continue aspirin Consider adding Plavix Once PEG tube is placed Continue blood pressure control (2) Aphasia Assessment/Plan: See above Improving (3) Hypertension Assessment/Plan: Well-controlled Continue lisinopril and metoprolol (4) Atrial fibrillation Qualifiers: Atrial fibrillation type: longstanding persistent Qualified Code(s): I48.11 - Longstanding persistent atrial fibrillation Assessment/Plan: Rate controlled ContinueMetoprolol Per chart review, neurology had recommended deferral of anticoagulation due to risk of ischemic conversion Will defer to outpatient management - Current Meds Current Meds: Current Medications Generic Name Dose Route Start Last Admin Trade Name Freq PRN Reason Stop Dose Admin Acetaminophen 650 mg 02/14/21 07:43 02/21/21 20:40 Acetaminophen 325 Mg Tablet PO 650 mg Q4HR PRN Administration Pain 1 to 4 Aspirin 81 mg 02/15/21 11:00 02/23/21 13:38 Aspirin Chew 81 Mg Tablet NG Not Given DAILY [facility] Atorvastatin Calcium 80 mg 02/15/21 21:00 02/22/21 23:37 Atorvastatin 40 Mg Tablet NG Not Given QPM [facility] Insulin Human Regular 1 - 5 unit 02/15/21 12:00 02/23/21 12:00 Insulin Regular Human 300 Unit/3 Ml Vial SUBQ Not Given Q6HR [facility] Protocol Lisinopril 20 mg 02/18/21 09:00 02/23/21 13:38 Lisinopril 20 Mg Tablet PO Not Given DAILY [facility] Metoprolol Tartrate 25 mg 02/15/21 21:00 02/23/21 13:38 Metoprolol Tartrate 25 Mg Tablet NG Not Given BID [facility] Multi-Ingredient Ointment 1 applic 02/21/21 22:33 02/22/21 17:56 Zinc Oxide 20% Oint 30 Gm Tube TOP 1 applic PRN PRN Administration Skin Care Sodium Chloride 10 ml 02/14/21 07:43 02/14/21 13:32 Sodium Chloride Flush 0.9% 10 Ml Syringe IVP 10 ml PRN PRN Administration NEEDED PER PROVIDER ORDERS Sodium Chloride 10 ml 02/14/21 09:00 02/23/21 09:00 Sodium Chloride Flush 0.9% 10 Ml Syringe IVP 10 ml 0100,0900,1700 [facility] Administration - Lab Result Fish Bone Diagrams: 02/23/21 05:40 02/23/21 05:40 - Additional Planning My Orders: My Active Orders 02/24/21 00:01 NPO for Test [DIET] Subjective - Subjective Patient Reports: Resting Comfortably, No Complaints Objective Vital Signs: Vital Signs - 24 hr 02/22/21 02/22/21 02/22/21 17:38 20:38 23:50 Temperature 37 C 37.1 C 37.1 C Heart Rate [ 74 76 Brachial] Heart Rate [ 89 Monitoring electrodes] Respiratory 20 18 16 Rate Blood Pressure 129/55 L 129/65 108/67 [Left Brachial artery] Blood Pressure [Right Brachial artery] O2 Saturation 98 96 96 02/23/21 02/23/21 02/23/21 04:30 07:43 12:29 Temperature 36.8 C 37.1 C 36.8 C Heart Rate [ 79 Brachial] Heart Rate [ 76 84 Monitoring electrodes] Respiratory 16 20 18 Rate Blood Pressure 137/71 H 125/62 [Left Brachial artery] Blood Pressure 144/78 H [Right Brachial artery] O2 Saturation 97 94 96 Oxygen O2 Source Room air I&O (Last 24 Hrs): Intake and Output Totals x24h 02/21/21 02/22/21 02/23/21 23:59 23:59 23:59 Intake Total 1206 2824 0 Output Total 1025 1280 750 Balance 181 1544 -750 General: Alert, Cooperative, No acute distress HEENT: Atraumatic, EOMI Neck: Supple Neuro: Alert (Right upper extremity flaccid, right lower extremity 3/5 strength in hip flexion. Still 1/5 dorsiflexion and plantarflexion of the right ankle. Still presents with aphasia but somewhat improving) Cardiovascular: Normal S1, Normal S2, Other (Irregularly irregular) Respiratory: Chest non-tender, No respiratory distress, Breath sounds nml Abdomen: Normal bowel sounds Skin: No rashes - Results Results: Laboratory Results WBC 9.6 x10^3/uL (4.8-10.8) 02/23/21 05:40 RBC 4.83 10^6/uL (4.70-6.10) 02/23/21 05:40 Hgb 11.6 g/dL (14.0-18.0) L 02/23/21 05:40 Hct 37.3 % (42.0-52.0) L 02/23/21 05:40 MCV 77.2 fL (80.0-94.0) L 02/23/21 05:40 MCH 24.0 pg (27.0-31.0) L 02/23/21 05:40 MCHC 31.1 g/dL (32.0-36.0) L 02/23/21 05:40 RDW 17.7 % (12.0-15.0) H 02/23/21 05:40 Plt Count 246 10^3/uL (130-450) 02/23/21 05:40 MPV 9.2 fL (7.4-11.4) 02/23/21 05:40 Neut # (Auto) 7.3 10^3/uL (1.5-6.6) H 02/23/21 05:40 Lymph # (Auto) 1.2 10^3/uL (1.5-3.5) L 02/23/21 05:40 [place] # (Auto) 0.7 10^3/uL (0.0-1.0) 02/23/21 05:40 Eos # (Auto) 0.3 10^3/uL (0.0-0.7) 02/23/21 05:40 Baso # (Auto) 0.0 10^3/uL (0.0-0.1) 02/23/21 05:40 Absolute Nucleated RBC 0.00 x10^3/uL 02/23/21 05:40 Nucleated RBC % 0.0 /100WBC 02/23/21 05:40 ESR 1 mm/Hr (0-20) 02/14/21 06:14 PT 12.6 secs (9.9-12.6) 02/14/21 06:14 INR 1.1 (0.8-1.2) 02/14/21 06:14 APTT 23.1 secs (24.9-33.3) L 02/14/21 06:14 Sodium 135 mmol/L (135-145) 02/23/21 05:40 Potassium 4.2 mmol/L (3.5-5.0) 02/23/21 05:40 Chloride 103 mmol/L (101-111) 02/23/21 05:40 Carbon Dioxide 25 mmol/L (21-32) 02/23/21 05:40 Anion Gap 7.0 (6-13) 02/23/21 05:40 BUN 15 mg/dL (6-20) 02/23/21 05:40 Creatinine 0.7 mg/dL (0.6-1.2) 02/23/21 05:40 Estimated GFR (MDRD) 138 (>89) 02/23/21 05:40 Glucose 103 mg/dL (70-100) H 02/23/21 05:40 POC Whole Bld Glucose 96 mg/dL (70 - 100) 02/23/21 10:54 Estimat Average Glucose 111 mg/dL (70-100) H 02/14/21 08:16 Hemoglobin A1c % 5.5 % (4.27-6.07) 02/14/21 08:16 Calcium 8.5 mg/dL (8.5-10.3) 02/23/21 05:40 Phosphorus 4.1 mg/dL (2.5-4.6) 02/21/21 06:01 Magnesium 2.0 mg/dL (1.7-2.8) 02/21/21 06:01 Iron 75 ug/dL (45-182) 02/15/21 08:18 TIBC 371 ug/dL (250-450) 02/15/21 08:18 % Saturation 20 % (20-50) 02/15/21 08:18 Transferrin 265 mg/dL (180-329) 02/15/21 08:18 Ferritin 22.5 ng/mL (23.9-336.2) L 02/15/21 08:18 Total Bilirubin 0.8 mg/dL (0.2-1.0) 02/18/21 06:42 AST 79 IU/L (10-42) H 02/18/21 06:42 ALT 51 IU/L (10-60) 02/18/21 06:42 Alkaline Phosphatase 46 IU/L (42-121) 02/18/21 06:42 Total Protein 6.9 g/dL (6.7-8.2) 02/18/21 06:42 Albumin 2.9 g/dL (3.2-5.5) L 02/18/21 06:42 Globulin 4.0 g/dL (2.1-4.2) 02/18/21 06:42 Albumin/Globulin Ratio 0.7 (1.0-2.2) L 02/18/21 06:42 Prealbumin 12 mg/dL (18-45) L 02/21/21 06:01 Triglycerides 55 mg/dL (-149) 02/15/21 05:28 Cholesterol 137 mg/dL (-199) 02/15/21 05:28 LDL Cholesterol, Calc 61 mg/dL (-129) 02/15/21 05:28 VLDL Cholesterol 11 mg/dL 02/15/21 05:28 HDL Cholesterol 65 mg/dL (60-) 02/15/21 05:28 LDL/HDL Ratio 0.9 (<3.6) 02/15/21 05:28 Cholesterol/HDL Ratio 2.1 (<5.0) 02/15/21 05:28 Lipase 30 U/L (22-51) 02/14/21 06:14 TSH 1.03 uIU/mL (0.34-5.60) 02/15/21 08:18 Nasal Adenovirus (PCR) NOT DETECTED 02/14/21 06:30 Nasal B. parapertussis DNA (PCR) NOT DETECTED 02/14/21 06:30 Nasal Coronavir 229E PCR NOT DETECTED 02/14/21 06:30 Nasal Coronavir HKU1 PCR NOT DETECTED 02/14/21 06:30 Nasal Coronavir NL63 PCR NOT DETECTED 02/14/21 06:30 Nasal Coronavir OC43 PCR NOT DETECTED 02/14/21 06:30 Nasal Enterovir/Rhinovir PCR NOT DETECTED 02/14/21 06:30 Nasal Influenza B PCR NOT DETECTED 02/14/21 06:30 Nasal Influenza A PCR NOT DETECTED 02/14/21 06:30 Nasal Parainfluen 1 PCR NOT DETECTED 02/14/21 06:30 Nasal Parainfluen 2 PCR NOT DETECTED 02/14/21 06:30 Nasal Parainfluen 3 PCR NOT DETECTED 02/14/21 06:30 Nasal Parainfluen 4 PCR NOT DETECTED 02/14/21 06:30 Nasal RSV (PCR) NOT DETECTED 02/14/21 06:30 Nasal B.pertussis DNA PCR NOT DETECTED 02/14/21 06:30 Nasal C.pneumoniae (PCR) NOT DETECTED 02/14/21 06:30 [place] Human Metapneumo PCR NOT DETECTED 02/14/21 06:30 Nasal M.pneumoniae (PCR) NOT DETECTED 02/14/21 06:30 Nasal SARS-CoV-2 (PCR) NOT DETECTED 02/14/21 06:30 Ethyl Alcohol < 5.0 mg/dL 02/14/21 06:14 ABX Reporting Has patient been on IV antibiotics over the past 48 hours?: No Current Medications - Current Medications Current Medications: Current Medications Generic Name Dose Route Start Last Admin Trade Name Freq PRN Reason Stop Dose Admin Acetaminophen 650 mg 02/14/21 07:43 02/21/21 20:40 Acetaminophen 325 Mg Tablet PO 650 mg Q4HR PRN Administration Pain 1 to 4 Aspirin 81 mg 02/15/21 11:00 02/23/21 13:38 Aspirin Chew 81 Mg Tablet NG Not Given DAILY [facility] Atorvastatin Calcium 80 mg 02/15/21 21:00 02/22/21 23:37 Atorvastatin 40 Mg Tablet NG Not Given QPM [facility] Insulin Human Regular 1 - 5 unit 02/15/21 12:00 02/23/21 12:00 Insulin Regular Human 300 Unit/3 Ml Vial SUBQ Not Given Q6HR [facility] Protocol Lisinopril 20 mg 02/18/21 09:00 02/23/21 13:38 Lisinopril 20 Mg Tablet PO Not Given DAILY [facility] Metoprolol Tartrate 25 mg 02/15/21 21:00 02/23/21 13:38 Metoprolol Tartrate 25 Mg Tablet NG Not Given BID [facility] Multi-Ingredient Ointment 1 applic 02/21/21 22:33 02/22/21 17:56 Zinc Oxide 20% Oint 30 Gm Tube TOP 1 applic PRN PRN Administration Skin Care Sodium Chloride 10 ml 02/14/21 07:43 02/14/21 13:32 Sodium Chloride Flush 0.9% 10 Ml Syringe IVP 10 ml PRN PRN Administration NEEDED PER PROVIDER ORDERS Sodium Chloride 10 ml 02/14/21 09:00 02/23/21 09:00 Sodium Chloride Flush 0.9% 10 Ml Syringe IVP 10 ml 0100,0900,1700 MANNY Administration
[2021-02-23] MEDS: DEXTROSE 5%-0.45% NACL 1,000 ML IV SCH (20:27)
[2021-02-23] MEDS: ATORVASTATIN 40 MG TABLET NG SCH (20:27)
[2021-02-24 05:04] LABS: BASOPHILS % (AUTO) 0.4 %; EOSINOPHILS # (AUTO) 0.3 10^3/uL (0.0-0.7); EOSINOPHILS % (AUTO) 2.6 %; HGB - HEMOGLOBIN 12.1 g/dL (14.0-18.0); LYMPHOCYTES # (AUTO) 1.5 10^3/uL (1.5-3.5); LYMPHOCYTES % (AUTO) 14.2 %; MEAN CORPUSCULAR VOLUME 77.2 fL (80.0-94.0); MEAN PLATELET VOLUME 8.9 fL (7.4-11.4); MONOCYTES # (AUTO) 0.8 10^3/uL (0.0-1.0); MONOCYTES % (AUTO) 7.8 %; NEUTROPHILS % (AUTO) 74.5 %; PLT - PLATELET COUNT 263 10^3/uL (130-450); RED BLOOD COUNT 5.05 10^6/uL (4.70-6.10); RED CELL DISTRIBUTION WIDTH 17.8 % (12.0-15.0); WHITE BLOOD COUNT 10.7 x10^3/uL (4.8-10.8)
[2021-02-24 05:06] LABS: CALCIUM 8.6 mg/dL (8.5-10.3); CREATININE 0.8 mg/dL (0.6-1.2)
[2021-02-24] MEDS: INSULIN REGULAR HUMAN 300 UNIT/3 ML VIAL SUBQ SCH ×4 (05:26→18:22)
[2021-02-24] MEDS: DEXTROSE 5%-0.45% NACL 1,000 ML IV SCH ×2 (05:55→18:02)
[2021-02-24] MEDS ORDERED: hydrALAZINE INJ 20 MG/ML VIAL IVP ONE (08:40)
[2021-02-24] MEDS: SODIUM CHLORIDE FLUSH 0.9% 10 ML SYRINGE IVP SCH ×2 (08:49→18:02)
[2021-02-24] MEDS ORDERED: METOPROLOL TARTRATE 25 MG TABLET NG SCH (09:00)
--- NOTE | 2021-02-24 12:38 | PROVIDER PROGRESS NOTE ---
Subjective - Prog Note Date Prog Note Date: 02/24/21 Prog Note Time: 12:31 - Subjective Pt reports feeling: Improved, No change Current Medications - Current Medications Current Medications: Current Medications Generic Name Dose Route Start Last Admin Trade Name Freq PRN Reason Stop Dose Admin Acetaminophen 650 mg 02/14/21 07:43 02/21/21 20:40 Acetaminophen 325 Mg Tablet PO 650 mg Q4HR PRN Administration Pain 1 to 4 Aspirin 81 mg 02/15/21 11:00 02/23/21 13:38 Aspirin Chew 81 Mg Tablet NG Not Given DAILY MANNY Atorvastatin Calcium 80 mg 02/15/21 21:00 02/23/21 20:27 Atorvastatin 40 Mg Tablet NG Not Given QPM [facility] Dextrose/Sodium Chloride 1,000 mls @ 100 mls/hr 02/23/21 20:00 02/24/21 08:49 D5.45ns IV 0 mls/hr .Q10H [facility] Infusion Insulin Human Regular 1 - 5 unit 02/15/21 12:00 02/24/21 05:26 Insulin Regular Human 300 Unit/3 Ml Vial SUBQ Not Given Q6HR [facility] Protocol Lisinopril 20 mg 02/18/21 09:00 02/23/21 13:38 Lisinopril 20 Mg Tablet PO Not Given DAILY [facility] Multi-Ingredient Ointment 1 applic 02/21/21 22:33 02/22/21 17:56 Zinc Oxide 20% Oint 30 Gm Tube TOP 1 applic PRN PRN Administration Skin Care Sodium Chloride 10 ml 02/14/21 07:43 02/14/21 13:32 Sodium Chloride Flush 0.9% 10 Ml Syringe IVP 10 ml PRN PRN Administration NEEDED PER PROVIDER ORDERS Sodium Chloride 10 ml 02/14/21 09:00 02/24/21 08:49 Sodium Chloride Flush 0.9% 10 Ml Syringe IVP 10 ml 0100,0900,1700 MANNY Administration Objective - Vital Signs/Intake & Output Vital Signs: Vital Signs x48h Temp Pulse Pulse Resp BP BP Pulse Ox 02/24/21 09:00 36.8 C 91 20 127/79 97 02/24/21 04:55 36.9 C 85 16 145/74 H 96 Intake & Output: Intake & Output 02/21/21 02/22/21 02/23/21 02/24/21 23:59 23:59 23:59 23:59 Intake Total 1206 2824 0 1290 Output Total 1025 1280 1250 600 Balance 181 1544 -1250 690 - Objective General Appearance: positive: No acute distress, Alert Respiratory: positive: Chest non-tender, No respiratory distress, Breath sounds nml Cardiovascular: positive: No murmur, No gallop, Irregularly irregular Abdomen: positive: Non-tender, No organomegaly, Nml bowel sounds, No distention Skin: positive: No rash Neurologic/Psychiatric: positive: Other (Right upper extremity flaccid, right lower extremity 3/5 strength in hip flexion. Still 1/5 dorsiflexion and plantarflexion of the right ankle. Still presents with aphasia but somewhat improving) - Lab Results Fish Bones: 02/24/21 04:52 02/24/21 04:52 Other Labs: Lab Results x24hrs 02/24/21 02/24/21 02/24/21 Range/Units 04:52 04:52 00:00 WBC 10.7 (4.8-10.8) x10^3/uL RBC 5.05 (4.70-6.10) 10^6/uL Hgb 12.1 L (14.0-18.0) g/dL Hct 39.0 L (42.0-52.0) % MCV 77.2 L (80.0-94.0) fL MCH 24.0 L (27.0-31.0) pg MCHC 31.0 L (32.0-36.0) g/dL RDW 17.8 H (12.0-15.0) % Plt Count 263 (130-450) 10^3/uL MPV 8.9 (7.4-11.4) fL Neut # (Auto) 8.0 H (1.5-6.6) 10^3/uL Lymph # (Auto) 1.5 (1.5-3.5) 10^3/uL Isabella # (Auto) 0.8 (0.0-1.0) 10^3/uL Eos # (Auto) 0.3 (0.0-0.7) 10^3/uL Baso # (Auto) 0.0 (0.0-0.1) 10^3/uL Absolute Nucleated RBC 0.00 x10^3/uL Nucleated RBC % 0.0 /100WBC Sodium 133 L (135-145) mmol/L Potassium 4.0 (3.5-5.0) mmol/L Chloride 100 L (101-111) mmol/L Carbon Dioxide 24 (21-32) mmol/L Anion Gap 9.0 (6-13) BUN 15 (6-20) mg/dL Creatinine 0.8 (0.6-1.2) mg/dL Estimated GFR (MDRD) 118 (>89) Glucose 108 H (70-100) mg/dL POC Whole Bld Glucose 103 H (70 - 100) mg/dL Calcium 8.6 (8.5-10.3) mg/dL SARS-CoV-2 (PCR) 02/23/21 02/23/21 Range/Units 18:56 17:04 WBC (4.8-10.8) x10^3/uL RBC (4.70-6.10) 10^6/uL Hgb (14.0-18.0) g/dL Hct (42.0-52.0) % MCV (80.0-94.0) fL MCH (27.0-31.0) pg MCHC (32.0-36.0) g/dL RDW (12.0-15.0) % Plt Count (130-450) 10^3/uL MPV (7.4-11.4) fL Neut # (Auto) (1.5-6.6) 10^3/uL Lymph # (Auto) (1.5-3.5) 10^3/uL Isabella # (Auto) (0.0-1.0) 10^3/uL Eos # (Auto) (0.0-0.7) 10^3/uL Baso # (Auto) (0.0-0.1) 10^3/uL Absolute Nucleated RBC x10^3/uL Nucleated RBC % /100WBC Sodium (135-145) mmol/L Potassium (3.5-5.0) mmol/L Chloride (101-111) mmol/L Carbon Dioxide (21-32) mmol/L Anion Gap (6-13) BUN (6-20) mg/dL Creatinine (0.6-1.2) mg/dL Estimated GFR (MDRD) (>89) Glucose (70-100) mg/dL POC Whole Bld Glucose 89 (70 - 100) mg/dL Calcium (8.5-10.3) mg/dL SARS-CoV-2 (PCR) NOT DETECTED Assessment/Plan - Problem List (1) Cerebrovascular accident (CVA) Impression: Right sided weakness persists,somewhat improved in the right lower extremity, able to lift his right foot off the bed right upper extremity still flaccid Aphasia continues but is also somewhat improved. Was able to answer a couple of questions with direct yes no answers today Comprehension seems to be improved as well Patient unable to swallow secondary to stroke NG tube was clotted and had to be removed, revealing a kink PEG tube to be [facility] today at [facility] Continue PT/OT, with plans for referral [facility] authorization Continue high-dose statin Continue aspirin Consider adding Plavix Once PEG tube is placed Continue blood pressure control Qualifiers: CVA mechanism: embolism Precerebral and cerebral artery: middle cerebral artery Laterality of affected vessel: left Qualified Code(s): I63.412 - Cerebral infarction due to embolism of left middle cerebral artery (2) Aphasia Impression: See above Improving (3) Hypertension Impression: Well-controlled Continue lisinopril and metoprolol (4) Atrial fibrillation Impression: Rate controlled ContinueMetoprolol Per chart review, neurology had recommended deferral of anticoagulation due to risk of ischemic conversion Will defer to outpatient management Qualifiers: Atrial fibrillation type: longstanding persistent Qualified Code(s): I48.11 - Longstanding persistent atrial fibrillation
[2021-02-24] MEDS: lisinopriL 20 MG TABLET PO SCH (16:55)
[2021-02-24] MEDS: METOPROLOL TARTRATE 50 MG TABLET NG SCH ×2 (16:55→21:53)
[2021-02-24] MEDS: ASPIRIN CHEW 81 MG TABLET NG SCH (16:55)
[2021-02-24] MEDS: ATORVASTATIN 40 MG TABLET NG SCH (21:53)
[2021-02-25] MEDS: INSULIN REGULAR HUMAN 300 UNIT/3 ML VIAL SUBQ SCH ×4 (03:46→18:31)
[2021-02-25] MEDS: DEXTROSE 5%-0.45% NACL 1,000 ML IV SCH ×3 (03:47→23:03)
[2021-02-25] MEDS: SODIUM CHLORIDE FLUSH 0.9% 10 ML SYRINGE IVP SCH ×3 (03:47→18:31)
[2021-02-25 06:14] LABS: BASOPHILS % (AUTO) 0.3 %; EOSINOPHILS # (AUTO) 0.2 10^3/uL (0.0-0.7); EOSINOPHILS % (AUTO) 2.1 %; HCT - HEMATOCRIT 36.5 % (42.0-52.0); HGB - HEMOGLOBIN 11.1 g/dL (14.0-18.0); LYMPHOCYTES # (AUTO) 1.3 10^3/uL (1.5-3.5); LYMPHOCYTES % (AUTO) 11.7 %; MEAN CORPUSCULAR HEMOGLOBIN 23.7 pg (27.0-31.0); MEAN CORPUSCULAR HGB CONC 30.4 g/dL (32.0-36.0); MEAN CORPUSCULAR VOLUME 77.8 fL (80.0-94.0); MEAN PLATELET VOLUME 9.7 fL (7.4-11.4); MONOCYTES # (AUTO) 0.8 10^3/uL (0.0-1.0); NEUTROPHILS # (AUTO) 8.4 10^3/uL (1.5-6.6); NEUTROPHILS % (AUTO) 78.4 %; PLT - PLATELET COUNT 266 10^3/uL (130-450); RED BLOOD COUNT 4.69 10^6/uL (4.70-6.10); RED CELL DISTRIBUTION WIDTH 17.8 % (12.0-15.0); WHITE BLOOD COUNT 10.7 x10^3/uL (4.8-10.8)
[2021-02-25 06:16] LABS: CALCIUM 8.6 mg/dL (8.5-10.3); CREATININE 0.8 mg/dL (0.6-1.2); POTASSIUM 4.2 mmol/L (3.5-5.0)
[2021-02-25] MEDS: METOPROLOL TARTRATE 50 MG TABLET NG SCH ×2 (08:29→20:53)
[2021-02-25] MEDS: DOCUSATE SODIUM 250 MG CAPSULE PO SCH (08:29)
[2021-02-25] MEDS: lisinopriL 20 MG TABLET PO SCH (08:29)
[2021-02-25] MEDS: SENNA 8.6 MG TABLET PO SCH (08:29)
[2021-02-25] MEDS: ASPIRIN CHEW 81 MG TABLET NG SCH (08:29)
[2021-02-25] MEDS: CLOPIDOGREL 75 MG TABLET PEG SCH (08:50)
--- NOTE | 2021-02-25 17:55 | PROVIDER PROGRESS NOTE ---
Assessment/Plan - Problem List (1) Cerebrovascular accident (CVA) Qualifiers: CVA mechanism: embolism Precerebral and cerebral artery: middle cerebral artery Laterality of affected vessel: left Qualified Code(s): I63.412 - Cerebral infarction due to embolism of left middle cerebral artery Assessment/Plan: Right sided weakness persists,somewhat improved in the right lower extremity, able to lift his right foot off the bed right upper extremity still flaccid Aphasia continues but is also somewhat improved. Was able to answer a couple of questions with direct yes no answers today Comprehension seems to be improved as well Patient unable to swallow secondary to stroke NG tube was clotted and had to be removed, revealing a kink PEG tube was placed 02/24/21 at [facility] PT/OT, with plans for referral to inpatient rehab. [facility] has accepted, but is pending insurance authorization Continue high-dose statin Continue aspirin Started Plavix today Continue blood pressure control D/C cleared when insurance accepts transfer to [facility] (2) Aphasia Assessment/Plan: Stable, see above (3) Hypertension Assessment/Plan: Slightly elevated, increased metoprolol tartrate from 25 to 50 mg BID (4) Atrial fibrillation Qualifiers: Atrial fibrillation type: longstanding persistent Qualified Code(s): I48.11 - Longstanding persistent atrial fibrillation Assessment/Plan: Stable, rate controlled Not anticoagulated on admission - was supposed to see neurology after last stroke to determine if this would be advisable. Given he's on asa and plavix, and recently had G tube, consider anticoag after d/c, vs ASA and Plavix alone to minimize bleeding. - Current Meds Current Meds: Current Medications Generic Name Dose Route Start Last Admin Trade Name Octavia PRN Reason Stop Dose Admin Acetaminophen 650 mg 02/14/21 07:43 02/21/21 20:40 Acetaminophen 325 Mg Tablet PO 650 mg Q4HR PRN Administration Pain 1 to 4 Aspirin 81 mg 02/15/21 11:00 02/25/21 08:29 Aspirin Chew 81 Mg Tablet NG 81 mg DAILY MANNY Administration Atorvastatin Calcium 80 mg 02/15/21 21:00 02/24/21 21:53 Atorvastatin 40 Mg Tablet NG 80 mg QPM MANNY Administration Clopidogrel Bisulfate 75 mg 02/25/21 09:00 02/25/21 08:50 Clopidogrel 75 Mg Tablet PEG 75 mg DAILY MANNY Administration Docusate Sodium 250 - 500 mg 02/25/21 09:00 02/25/21 08:29 Docusate Sodium 250 Mg Capsule PO 250 mg DAILY MANNY Administration Dextrose/Sodium Chloride 1,000 mls @ 100 mls/hr 02/23/21 20:00 02/25/21 12:51 D5.45ns IV 100 mls/hr .Q10H [facility]NY Administration Insulin Human Regular 1 - 5 unit 02/15/21 12:00 02/25/21 11:30 Insulin Regular Human 300 Unit/3 Ml Vial SUBQ Not Given Q6HR [facility] Protocol Lisinopril 20 mg 02/18/21 09:00 02/25/21 08:29 Lisinopril 20 Mg Tablet PO 20 mg DAILY MANNY Administration Metoprolol Tartrate 50 mg 02/24/21 11:00 02/25/21 08:29 Metoprolol Tartrate 50 Mg Tablet NG 50 mg BID MANNY Administration Multi-Ingredient Ointment 1 applic 02/21/21 22:33 02/22/21 17:56 Zinc Oxide 20% Oint 30 Gm Tube TOP 1 applic PRN PRN Administration Skin Care Senna 8.6 - 17.2 mg 02/25/21 09:00 02/25/21 08:29 Senna 8.6 Mg Tablet PO 8.6 mg DAILY MANNY Administration Sodium Chloride 10 ml 02/14/21 07:43 02/14/21 13:32 Sodium Chloride Flush 0.9% 10 Ml Syringe IVP 10 ml PRN PRN Administration NEEDED PER PROVIDER ORDERS Sodium Chloride 10 ml 02/14/21 09:00 02/25/21 08:34 Sodium Chloride Flush 0.9% 10 Ml Syringe IVP 10 ml 0100,0900,1700 MANNY Administration - Lab Result Fish Bone Diagrams: 02/25/21 05:44 02/25/21 05:44 - Additional Planning Condition/Complexity: Stable My Orders: My Active Orders 02/25/21 09:00 Clopidogrel [Plavix] 75 mg PEG DAILY 02/25/21 11:41 Daily Weight [RC] DAILY IO [RC] QSHIFT Tube Feeding [RC] QSHIFT 02/26/21 05:00 COMPREHENSIVE METABOLIC PANEL [CHEM] Timed MAGNESIUM [CHEM] Timed PHOSPHORUS [CHEM] Timed PREALBUMIN [CHEM] Timed 02/28/21 05:00 COMPREHENSIVE METABOLIC PANEL [CHEM] Timed MAGNESIUM [CHEM] Timed PHOSPHORUS [CHEM] Timed PREALBUMIN [CHEM] Timed 03/03/21 05:00 COMPREHENSIVE METABOLIC PANEL [CHEM] Timed MAGNESIUM [CHEM] Timed PHOSPHORUS [CHEM] Timed PREALBUMIN [CHEM] Timed Subjective - Subjective Patient Reports: Feeling Better Objective Vital Signs: Vital Signs - 24 hr 02/24/21 02/24/21 02/24/21 18:00 20:00 21:53 Temperature 36.8 C 37.0 C Heart Rate [ 90 84 Brachial] Heart Rate [ Monitoring electrodes] Respiratory 18 20 Rate Blood Pressure 133/72 H Blood Pressure 133/72 H [Left Brachial artery] Blood Pressure 133/78 H [Right Brachial artery] O2 Saturation 97 100 02/25/21 02/25/21 02/25/21 01:00 05:45 07:39 Temperature 36.9 C 37.1 C 36.9 C Heart Rate [ 55 L Brachial] Heart Rate [ 76 66 Monitoring electrodes] Respiratory 18 16 16 Rate Blood Pressure Blood Pressure [Left Brachial artery] Blood Pressure 111/58 L 132/79 H 117/99 H [Right Brachial artery] O2 Saturation 100 98 97 02/25/21 02/25/21 12:12 15:53 Temperature 36.9 C 37.0 C Heart Rate [ 67 72 Brachial] Heart Rate [ Monitoring electrodes] Respiratory 18 16 Rate Blood Pressure Blood Pressure [Left Brachial artery] Blood Pressure 125/77 114/67 [Right Brachial artery] O2 Saturation 96 92 Oxygen O2 Source Room air I&O (Last 24 Hrs): Intake and Output Totals x24h 02/23/21 02/24/21 02/25/21 23:59 23:59 23:59 Intake Total 0 1290 2156.667 Output Total 1250 1100 800 Balance -9839 674 9958.667 General: Alert, Cooperative, No acute distress HEENT: Atraumatic, EOMI Neck: Supple Neuro: Alert, Speech Slurred, Other (Right upper extremity flaccid, right lower extremity 3/5 strength in hip flexion. Still 1/5 dorsiflexion and plantarflexion of the right ankle. Still presents with aphasia but somewhat improving) Cardiovascular: Normal S1, Normal S2, Other (Irregularly irregular) Respiratory: Chest non-tender, No respiratory distress Abdomen: Normal bowel sounds, No tenderness, Other (G-tube insertion site CDI) Skin: No rashes - Results Results: Laboratory Results WBC 10.7 x10^3/uL (4.8-10.8) 02/25/21 05:44 RBC 4.69 10^6/uL (4.70-6.10) L 02/25/21 05:44 Hgb 11.1 g/dL (14.0-18.0) L 02/25/21 05:44 Hct 36.5 % (42.0-52.0) L 02/25/21 05:44 MCV 77.8 fL (80.0-94.0) L 02/25/21 05:44 MCH 23.7 pg (27.0-31.0) L 02/25/21 05:44 MCHC 30.4 g/dL (32.0-36.0) L 02/25/21 05:44 RDW 17.8 % (12.0-15.0) H 02/25/21 05:44 Plt Count 266 10^3/uL (130-450) 02/25/21 05:44 MPV 9.7 fL (7.4-11.4) 02/25/21 05:44 Neut # (Auto) 8.4 10^3/uL (1.5-6.6) H 02/25/21 05:44 Lymph # (Auto) 1.3 10^3/uL (1.5-3.5) L 02/25/21 05:44 Burt # (Auto) 0.8 10^3/uL (0.0-1.0) 02/25/21 05:44 Eos # (Auto) 0.2 10^3/uL (0.0-0.7) 02/25/21 05:44 Baso # (Auto) 0.0 10^3/uL (0.0-0.1) 02/25/21 05:44 Absolute Nucleated RBC 0.00 x10^3/uL 02/25/21 05:44 Nucleated RBC % 0.0 /100WBC 02/25/21 05:44 ESR 1 mm/Hr (0-20) 02/14/21 06:14 PT 12.6 secs (9.9-12.6) 02/14/21 06:14 INR 1.1 (0.8-1.2) 02/14/21 06:14 APTT 23.1 secs (24.9-33.3) L 02/14/21 06:14 Sodium 136 mmol/L (135-145) 02/25/21 05:44 Potassium 4.2 mmol/L (3.5-5.0) 02/25/21 05:44 Chloride 103 mmol/L (101-111) 02/25/21 05:44 Carbon Dioxide 23 mmol/L (21-32) 02/25/21 05:44 Anion Gap 10.0 (6-13) 02/25/21 05:44 BUN 16 mg/dL (6-20) 02/25/21 05:44 Creatinine 0.8 mg/dL (0.6-1.2) 02/25/21 05:44 Estimated GFR (MDRD) 118 (>89) 02/25/21 05:44 Glucose 115 mg/dL (70-100) H 02/25/21 05:44 POC Whole Bld Glucose 100 mg/dL (70 - 100) 02/25/21 11:10 Estimat Average Glucose 111 mg/dL (70-100) H 02/14/21 08:16 Hemoglobin A1c % 5.5 % (4.27-6.07) 02/14/21 08:16 Calcium 8.6 mg/dL (8.5-10.3) 02/25/21 05:44 Phosphorus 4.1 mg/dL (2.5-4.6) 02/21/21 06:01 Magnesium 2.0 mg/dL (1.7-2.8) 02/21/21 06:01 Iron 75 ug/dL (45-182) 02/15/21 08:18 TIBC 371 ug/dL (250-450) 02/15/21 08:18 % Saturation 20 % (20-50) 02/15/21 08:18 Transferrin 265 mg/dL (180-329) 02/15/21 08:18 Ferritin 22.5 ng/mL (23.9-336.2) L 02/15/21 08:18 Total Bilirubin 0.8 mg/dL (0.2-1.0) 02/18/21 06:42 AST 79 IU/L (10-42) H 02/18/21 06:42 ALT 51 IU/L (10-60) 02/18/21 06:42 Alkaline Phosphatase 46 IU/L (42-121) 02/18/21 06:42 Total Protein 6.9 g/dL (6.7-8.2) 02/18/21 06:42 Albumin 2.9 g/dL (3.2-5.5) L 02/18/21 06:42 Globulin 4.0 g/dL (2.1-4.2) 02/18/21 06:42 Albumin/Globulin Ratio 0.7 (1.0-2.2) L 02/18/21 06:42 Prealbumin 12 mg/dL (18-45) L 02/21/21 06:01 Triglycerides 55 mg/dL (-149) 02/15/21 05:28 Cholesterol 137 mg/dL (-199) 02/15/21 05:28 LDL Cholesterol, Calc 61 mg/dL (-129) 02/15/21 05:28 VLDL Cholesterol 11 mg/dL 02/15/21 05:28 HDL Cholesterol 65 mg/dL (60-) 02/15/21 05:28 LDL/HDL Ratio 0.9 (<3.6) 02/15/21 05:28 Cholesterol/HDL Ratio 2.1 (<5.0) 02/15/21 05:28 Lipase 30 U/L (22-51) 02/14/21 06:14 TSH 1.03 uIU/mL (0.34-5.60) 02/15/21 08:18 Nasal Adenovirus (PCR) NOT DETECTED 02/14/21 06:30 Nasal B. parapertussis DNA (PCR) NOT DETECTED 02/14/21 06:30 Nasal Coronavir 229E PCR NOT DETECTED 02/14/21 06:30 Nasal Coronavir HKU1 PCR NOT DETECTED 02/14/21 06:30 Nasal Coronavir NL63 PCR NOT DETECTED 02/14/21 06:30 Nasal Coronavir OC43 PCR NOT DETECTED 02/14/21 06:30 Nasal Enterovir/Rhinovir PCR NOT DETECTED 02/14/21 06:30 Nasal Influenza B PCR NOT DETECTED 02/14/21 06:30 Nasal Influenza A PCR NOT DETECTED 02/14/21 06:30 Nasal Parainfluen 1 PCR NOT DETECTED 02/14/21 06:30 Nasal Parainfluen 2 PCR NOT DETECTED 02/14/21 06:30 Nasal Parainfluen 3 PCR NOT DETECTED 02/14/21 06:30 Nasal Parainfluen 4 PCR NOT DETECTED 02/14/21 06:30 Nasal RSV (PCR) NOT DETECTED 02/14/21 06:30 Nasal B.pertussis DNA PCR NOT DETECTED 02/14/21 06:30 Nasal C.pneumoniae (PCR) NOT DETECTED 02/14/21 06:30 Cody Human Metapneumo PCR NOT DETECTED 02/14/21 06:30 Nasal M.pneumoniae (PCR) NOT DETECTED 02/14/21 06:30 Nasal SARS-CoV-2 (PCR) NOT DETECTED 02/14/21 06:30 Ethyl Alcohol < 5.0 mg/dL 02/14/21 06:14 SARS-CoV-2 (PCR) NOT DETECTED 02/23/21 18:56 ABX Reporting Has patient been on IV antibiotics over the past 48 hours?: No Current Medications - Current Medications Current Medications: Current Medications Generic Name Dose Route Start Last Admin Trade Name Freq PRN Reason Stop Dose Admin Acetaminophen 650 mg 02/14/21 07:43 02/21/21 20:40 Acetaminophen 325 Mg Tablet PO 650 mg Q4HR PRN Administration Pain 1 to 4 Aspirin 81 mg 02/15/21 11:00 02/25/21 08:29 Aspirin Chew 81 Mg Tablet NG 81 mg DAILY MANNY Administration Atorvastatin Calcium 80 mg 02/15/21 21:00 02/24/21 21:53 Atorvastatin 40 Mg Tablet NG 80 mg QPM MANNY Administration Clopidogrel Bisulfate 75 mg 02/25/21 09:00 02/25/21 08:50 Clopidogrel 75 Mg Tablet PEG 75 mg DAILY MANNY Administration Docusate Sodium 250 - 500 mg 02/25/21 09:00 02/25/21 08:29 Docusate Sodium 250 Mg Capsule PO 250 mg DAILY MANNY Administration Dextrose/Sodium Chloride 1,000 mls @ 100 mls/hr 02/23/21 20:00 02/25/21 12:51 D5.45ns IV 100 mls/hr .Q10H MANNY Administration Insulin Human Regular 1 - 5 unit 02/15/21 12:00 02/25/21 11:30 Insulin Regular Human 300 Unit/3 Ml Vial SUBQ Not Given Q6HR [facility] Protocol Lisinopril 20 mg 02/18/21 09:00 02/25/21 08:29 Lisinopril 20 Mg Tablet PO 20 mg DAILY MANNY Administration Metoprolol Tartrate 50 mg 02/24/21 11:00 02/25/21 08:29 Metoprolol Tartrate 50 Mg Tablet NG 50 mg BID MANNY Administration Multi-Ingredient Ointment 1 applic 02/21/21 22:33 02/22/21 17:56 Zinc Oxide 20% Oint 30 Gm Tube TOP 1 applic PRN PRN Administration Skin Care Senna 8.6 - 17.2 mg 02/25/21 09:00 02/25/21 08:29 Senna 8.6 Mg Tablet PO 8.6 mg DAILY MANNY Administration Sodium Chloride 10 ml 02/14/21 07:43 02/14/21 13:32 Sodium Chloride Flush 0.9% 10 Ml Syringe IVP 10 ml PRN PRN Administration NEEDED PER PROVIDER ORDERS Sodium Chloride 10 ml 02/14/21 09:00 02/25/21 08:34 Sodium Chloride Flush 0.9% 10 Ml Syringe IVP 10 ml 0100,0900,1700 MANNY Administration
[2021-02-25] MEDS: ATORVASTATIN 40 MG TABLET NG SCH (20:53)
[2021-02-26] MEDS: INSULIN REGULAR HUMAN 300 UNIT/3 ML VIAL SUBQ SCH ×4 (00:50→18:13)
[2021-02-26] MEDS: SODIUM CHLORIDE FLUSH 0.9% 10 ML SYRINGE IVP SCH ×3 (00:50→16:38)
[2021-02-26 06:13] LABS: ALBUMIN 2.6 g/dL (3.2-5.5); ALBUMIN/GLOBULIN RATIO 0.6 (1.0-2.2); BILIRUBIN,TOTAL 0.7 mg/dL (0.2-1.0); CALCIUM 8.3 mg/dL (8.5-10.3); CREATININE 0.8 mg/dL (0.6-1.2); PHOSPHORUS 3.5 mg/dL (2.5-4.6); POTASSIUM 3.9 mmol/L (3.5-5.0)
[2021-02-26] MEDS: CLOPIDOGREL 75 MG TABLET PEG SCH (08:11)
[2021-02-26] MEDS: METOPROLOL TARTRATE 50 MG TABLET NG SCH ×2 (08:11→21:29)
[2021-02-26] MEDS: DOCUSATE SODIUM 250 MG CAPSULE PO SCH (08:11)
[2021-02-26] MEDS: lisinopriL 20 MG TABLET PO SCH (08:11)
[2021-02-26] MEDS: SENNA 8.6 MG TABLET PO SCH (08:11)
[2021-02-26] MEDS: ASPIRIN CHEW 81 MG TABLET NG SCH (08:11)
[2021-02-26] MEDS: DEXTROSE 5%-0.45% NACL 1,000 ML IV SCH (08:12)
--- NOTE | 2021-02-26 15:00 | PROVIDER PROGRESS NOTE ---
Assessment/Plan - Problem List (1) Cerebrovascular accident (CVA) Qualifiers: CVA mechanism: embolism Precerebral and cerebral artery: middle cerebral artery Laterality of affected vessel: left Qualified Code(s): I63.412 - Cerebral infarction due to embolism of left middle cerebral artery Assessment/Plan: Right sided weakness persists,somewhat improved in the right lower extremity, able to lift his right foot off the bed right upper extremity still flaccid Aphasia continues but is also somewhat improved. Was able to answer a couple of questions with direct yes no answers today Comprehension seems to be improved as well Patient unable to swallow secondary to stroke NG tube was clotted and had to be removed, revealing a kink PEG tube was placed 02/24/21 at [facility] PT/OT, with plans for referral to inpatient rehab. [facility] has accepted, but is pending insurance authorization Continue high-dose statin Continue aspirin Started Plavix today Continue blood pressure control D/C cleared when insurance accepts transfer to [facility] (2) Aphasia Assessment/Plan: Stable, see above (3) Hypertension Assessment/Plan: Slightly elevated, increased metoprolol tartrate from 25 to 50 mg BID (4) Atrial fibrillation Qualifiers: Atrial fibrillation type: longstanding persistent Qualified Code(s): I48.11 - Longstanding persistent atrial fibrillation Assessment/Plan: Stable, rate controlled Not anticoagulated on admission - was supposed to see neurology after last stroke to determine if this would be advisable. Given he's on asa and plavix, and recently had G tube, consider anticoag after d/c, vs ASA and Plavix alone to minimize bleeding. - Current Meds Current Meds: Current Medications Generic Name Dose Route Start Last Admin Trade Name Octavia PRN Reason Stop Dose Admin Acetaminophen 650 mg 02/14/21 07:43 02/21/21 20:40 Acetaminophen 325 Mg Tablet PO 650 mg Q4HR PRN Administration Pain 1 to 4 Aspirin 81 mg 02/15/21 11:00 02/26/21 08:11 Aspirin Chew 81 Mg Tablet NG 81 mg DAILY MANNY Administration Atorvastatin Calcium 80 mg 02/15/21 21:00 02/25/21 20:53 Atorvastatin 40 Mg Tablet NG 80 mg QPM MANNY Administration Clopidogrel Bisulfate 75 mg 02/25/21 09:00 02/26/21 08:11 Clopidogrel 75 Mg Tablet PEG 75 mg DAILY MANNY Administration Docusate Sodium 250 - 500 mg 02/25/21 09:00 02/26/21 08:11 Docusate Sodium 250 Mg Capsule PO 250 mg DAILY MANNY Administration Dextrose/Sodium Chloride 1,000 mls @ 100 mls/hr 02/23/21 20:00 02/26/21 08:12 D5.45ns IV 100 mls/hr .Q10H MANNY Administration Insulin Human Regular 1 - 5 unit 02/15/21 12:00 02/26/21 11:28 Insulin Regular Human 300 Unit/3 Ml Vial SUBQ Not Given Q6HR [facility] Protocol Lisinopril 20 mg 02/18/21 09:00 02/26/21 08:11 Lisinopril 20 Mg Tablet PO 20 mg DAILY MANNY Administration Metoprolol Tartrate 50 mg 02/24/21 11:00 02/26/21 08:11 Metoprolol Tartrate 50 Mg Tablet NG 50 mg BID MANNY Administration Multi-Ingredient Ointment 1 applic 02/21/21 22:33 02/22/21 17:56 Zinc Oxide 20% Oint 30 Gm Tube TOP 1 applic PRN PRN Administration Skin Care Senna 8.6 - 17.2 mg 02/25/21 09:00 02/26/21 08:11 Senna 8.6 Mg Tablet PO 8.6 mg DAILY MANNY Administration Sodium Chloride 10 ml 02/14/21 07:43 02/14/21 13:32 Sodium Chloride Flush 0.9% 10 Ml Syringe IVP 10 ml PRN PRN Administration NEEDED PER PROVIDER ORDERS Sodium Chloride 10 ml 02/14/21 09:00 02/26/21 08:12 Sodium Chloride Flush 0.9% 10 Ml Syringe IVP 10 ml 0100,0900,1700 MANNY Administration - Lab Result Fish Bone Diagrams: 02/25/21 05:44 02/26/21 04:42 Subjective - Subjective Patient Reports: Other (pt showed severe aphasia, but following commands, denied Headache, dizziness, any other complaints, tolerating PT. awaits disposition to [facility]) Objective Vital Signs: Vital Signs - 24 hr 02/25/21 02/25/21 02/25/21 15:53 19:40 20:53 Temperature 37.0 C 37.2 C Heart Rate [ 72 73 Brachial] Respiratory 16 18 Rate Blood Pressure 131/69 H Blood Pressure 114/67 119/93 H [Right Brachial artery] O2 Saturation 92 97 02/26/21 02/26/21 02/26/21 00:09 05:00 07:42 Temperature 37.3 C 37.0 C 36.5 C Heart Rate [ 65 78 79 Brachial] Respiratory 20 20 20 Rate Blood Pressure Blood Pressure 128/79 130/63 151/97 H [Right Brachial artery] O2 Saturation 97 97 96 02/26/21 12:56 Temperature 36.7 C Heart Rate [ 68 Brachial] Respiratory 18 Rate Blood Pressure Blood Pressure 127/78 [Right Brachial artery] O2 Saturation 100 Oxygen O2 Source Room air I&O (Last 24 Hrs): Intake and Output Totals x24h 02/24/21 02/25/21 02/26/21 23:59 23:59 23:59 Intake Total 1290 3876.667 1305 Output Total 1100 1253 700 Balance 190 2623.667 605 General: Alert, Oriented x3, Cooperative, No acute distress HEENT: Atraumatic, PERRLA, EOMI Neck: Supple, No JVD, No thyromegaly, +2 carotid pulse wo bruit, No LAD Lymphatic: no adenopathy Neuro: Alert, Other (dense right side weakness, 2/5, sensory decreased, no facial asymmetry.) Cardiovascular: Regular rate, Normal S1, Normal S2, No murmurs Respiratory: Chest non-tender, No respiratory distress, Breath sounds nml Abdomen: Normal bowel sounds, Soft, No tenderness, No hepatospenomegaly, No masses Genitourinary: Normal Inspection, No Mass, No Discharge, No Meatal Blood, No Hernia Rectal: Non-Tender Extremities: No clubbing, No cyanosis, No edema, Normal pulses, No tenderness/swelling Skin: No rashes, No breakdown, No significant lesion - Results Results: Laboratory Results WBC 10.7 x10^3/uL (4.8-10.8) 02/25/21 05:44 RBC 4.69 10^6/uL (4.70-6.10) L 02/25/21 05:44 Hgb 11.1 g/dL (14.0-18.0) L 02/25/21 05:44 Hct 36.5 % (42.0-52.0) L 02/25/21 05:44 MCV 77.8 fL (80.0-94.0) L 02/25/21 05:44 MCH 23.7 pg (27.0-31.0) L 02/25/21 05:44 MCHC 30.4 g/dL (32.0-36.0) L 02/25/21 05:44 RDW 17.8 % (12.0-15.0) H 02/25/21 05:44 Plt Count 266 10^3/uL (130-450) 02/25/21 05:44 MPV 9.7 fL (7.4-11.4) 02/25/21 05:44 Neut # (Auto) 8.4 10^3/uL (1.5-6.6) H 02/25/21 05:44 Lymph # (Auto) 1.3 10^3/uL (1.5-3.5) L 02/25/21 05:44 [place] # (Auto) 0.8 10^3/uL (0.0-1.0) 02/25/21 05:44 Eos # (Auto) 0.2 10^3/uL (0.0-0.7) 02/25/21 05:44 Baso # (Auto) 0.0 10^3/uL (0.0-0.1) 02/25/21 05:44 Absolute Nucleated RBC 0.00 x10^3/uL 02/25/21 05:44 Nucleated RBC % 0.0 /100WBC 02/25/21 05:44 ESR 1 mm/Hr (0-20) 02/14/21 06:14 PT 12.6 secs (9.9-12.6) 02/14/21 06:14 INR 1.1 (0.8-1.2) 02/14/21 06:14 APTT 23.1 secs (24.9-33.3) L 02/14/21 06:14 Sodium 131 mmol/L (135-145) L 02/26/21 04:42 Potassium 3.9 mmol/L (3.5-5.0) 02/26/21 04:42 Chloride 100 mmol/L (101-111) L 02/26/21 04:42 Carbon Dioxide 23 mmol/L (21-32) 02/26/21 04:42 Anion Gap 8.0 (6-13) 02/26/21 04:42 BUN 15 mg/dL (6-20) 02/26/21 04:42 Creatinine 0.8 mg/dL (0.6-1.2) 02/26/21 04:42 Estimated GFR (MDRD) 118 (>89) 02/26/21 04:42 Glucose 117 mg/dL (70-100) H 02/26/21 04:42 POC Whole Bld Glucose 116 mg/dL (70 - 100) H 02/26/21 11:26 Estimat Average Glucose 111 mg/dL (70-100) H 02/14/21 08:16 Hemoglobin A1c % 5.5 % (4.27-6.07) 02/14/21 08:16 Calcium 8.3 mg/dL (8.5-10.3) L 02/26/21 04:42 Phosphorus 3.5 mg/dL (2.5-4.6) 02/26/21 04:42 Magnesium 2.0 mg/dL (1.7-2.8) 02/26/21 04:42 Iron 75 ug/dL (45-182) 02/15/21 08:18 TIBC 371 ug/dL (250-450) 02/15/21 08:18 % Saturation 20 % (20-50) 02/15/21 08:18 Transferrin 265 mg/dL (180-329) 02/15/21 08:18 Ferritin 22.5 ng/mL (23.9-336.2) L 02/15/21 08:18 Total Bilirubin 0.7 mg/dL (0.2-1.0) 02/26/21 04:42 AST 93 IU/L (10-42) H 02/26/21 04:42 ALT 103 IU/L (10-60) H 02/26/21 04:42 Alkaline Phosphatase 76 IU/L (42-121) 02/26/21 04:42 Total Protein 7.0 g/dL (6.7-8.2) 02/26/21 04:42 Albumin 2.6 g/dL (3.2-5.5) L 02/26/21 04:42 Globulin 4.4 g/dL (2.1-4.2) H 02/26/21 04:42 Albumin/Globulin Ratio 0.6 (1.0-2.2) L 02/26/21 04:42 Prealbumin 10 mg/dL (18-45) L 02/26/21 04:42 Triglycerides 55 mg/dL (-149) 02/15/21 05:28 Cholesterol 137 mg/dL (-199) 02/15/21 05:28 LDL Cholesterol, Calc 61 mg/dL (-129) 02/15/21 05:28 VLDL Cholesterol 11 mg/dL 02/15/21 05:28 HDL Cholesterol 65 mg/dL (60-) 02/15/21 05:28 LDL/HDL Ratio 0.9 (<3.6) 02/15/21 05:28 Cholesterol/HDL Ratio 2.1 (<5.0) 02/15/21 05:28 Lipase 30 U/L (22-51) 02/14/21 06:14 TSH 1.03 uIU/mL (0.34-5.60) 02/15/21 08:18 Nasal Adenovirus (PCR) NOT DETECTED 02/14/21 06:30 Nasal B. parapertussis DNA (PCR) NOT DETECTED 02/14/21 06:30 Nasal Coronavir 229E PCR NOT DETECTED 02/14/21 06:30 Nasal Coronavir HKU1 PCR NOT DETECTED 02/14/21 06:30 Nasal Coronavir NL63 PCR NOT DETECTED 02/14/21 06:30 Nasal Coronavir OC43 PCR NOT DETECTED 02/14/21 06:30 Nasal Enterovir/Rhinovir PCR NOT DETECTED 02/14/21 06:30 Nasal Influenza B PCR NOT DETECTED 02/14/21 06:30 Nasal Influenza A PCR NOT DETECTED 02/14/21 06:30 Nasal Parainfluen 1 PCR NOT DETECTED 02/14/21 06:30 Nasal Parainfluen 2 PCR NOT DETECTED 02/14/21 06:30 Nasal Parainfluen 3 PCR NOT DETECTED 02/14/21 06:30 Nasal Parainfluen 4 PCR NOT DETECTED 02/14/21 06:30 Nasal RSV (PCR) NOT DETECTED 02/14/21 06:30 Nasal B.pertussis DNA PCR NOT DETECTED 02/14/21 06:30 Nasal C.pneumoniae (PCR) NOT DETECTED 02/14/21 06:30 Cody Human Metapneumo PCR NOT DETECTED 02/14/21 06:30 Nasal M.pneumoniae (PCR) NOT DETECTED 02/14/21 06:30 Nasal SARS-CoV-2 (PCR) NOT DETECTED 09/27/21 06:30 Ethyl Alcohol < 5.0 mg/dL 02/14/21 06:14 SARS-CoV-2 (PCR) NOT DETECTED 02/23/21 18:56 ABX Reporting Has patient been on IV antibiotics over the past 48 hours?: No
[2021-02-26] MEDS: ACETAMINOPHEN 325 MG TABLET PO PRN (21:28)
[2021-02-26] MEDS: ATORVASTATIN 40 MG TABLET NG SCH (21:32)
[2021-02-27] MEDS: DEXTROSE 5%-0.45% NACL 1,000 ML IV SCH ×4 (00:05→20:59)
[2021-02-27] MEDS: INSULIN REGULAR HUMAN 300 UNIT/3 ML VIAL SUBQ SCH ×4 (00:05→18:13)
[2021-02-27] MEDS: SODIUM CHLORIDE FLUSH 0.9% 10 ML SYRINGE IVP SCH ×4 (00:06→23:27)
[2021-02-27] MEDS: CLOPIDOGREL 75 MG TABLET PEG SCH (07:46)
[2021-02-27] MEDS: lisinopriL 20 MG TABLET PO SCH (07:46)
[2021-02-27] MEDS: DOCUSATE SODIUM 250 MG CAPSULE PO SCH (07:46)
[2021-02-27] MEDS: ASPIRIN CHEW 81 MG TABLET NG SCH (07:46)
[2021-02-27] MEDS: METOPROLOL TARTRATE 50 MG TABLET NG SCH ×2 (07:47→20:59)
[2021-02-27] MEDS: SENNA 8.6 MG TABLET PO SCH (07:47)
--- NOTE | 2021-02-27 08:49 | PROVIDER PROGRESS NOTE ---
Assessment/Plan - Problem List (1) Cerebrovascular accident (CVA) Qualifiers: CVA mechanism: embolism Precerebral and cerebral artery: middle cerebral artery Laterality of affected vessel: left Qualified Code(s): I63.412 - Cerebral infarction due to embolism of left middle cerebral artery Assessment/Plan: Right sided weakness persists,somewhat improved in the right lower extremity, able to lift his right foot off the bed right upper extremity still flaccid Aphasia continues but is also somewhat improved. Was able to answer a couple of questions with direct yes no answers today Comprehension seems to be improved as well Patient unable to swallow secondary to stroke NG tube was clotted and had to be removed, revealing a kink PEG tube was placed 02/24/21 at [facility] PT/OT, with plans for referral [facility], [facility] Continue high-dose statin Continue aspirin Started Plavix today Continue blood pressure control D/C cleared when insurance accepts transfer to [facility] (2) Aphasia Assessment/Plan: Stable, see above (3) Hypertension Assessment/Plan: Slightly elevated, increased metoprolol tartrate from 25 to 50 mg BID (4) Atrial fibrillation Qualifiers: Atrial fibrillation type: longstanding persistent Qualified Code(s): I48.11 - Longstanding persistent atrial fibrillation Assessment/Plan: Stable, rate controlled Not anticoagulated on admission - was supposed to see neurology after last stroke to determine if this would be advisable. Given he's on asa and plavix, and recently had G tube, consider anticoag after d/c, vs ASA and Plavix alone to minimize bleeding. - Current Meds Current Meds: Current Medications Generic Name Dose Route Start Last Admin Trade Name Octavia PRN Reason Stop Dose Admin Acetaminophen 650 mg 02/14/21 07:43 02/26/21 21:28 Acetaminophen 325 Mg Tablet PO 650 mg Q4HR PRN Administration Pain 1 to 4 Aspirin 81 mg 02/15/21 11:00 02/27/21 07:46 Aspirin Chew 81 Mg Tablet NG 81 mg DAILY MANNY Administration Atorvastatin Calcium 80 mg 02/15/21 21:00 02/26/21 21:32 Atorvastatin 40 Mg Tablet NG 80 mg QPM MANNY Administration Clopidogrel Bisulfate 75 mg 02/25/21 09:00 02/27/21 07:46 Clopidogrel 75 Mg Tablet PEG 75 mg DAILY MANNY Administration Docusate Sodium 250 - 500 mg 02/25/21 09:00 02/27/21 07:46 Docusate Sodium 250 Mg Capsule PO 250 mg DAILY MANNY Administration Dextrose/Sodium Chloride 1,000 mls @ 100 mls/hr 02/23/21 20:00 02/27/21 06:07 D5.45ns IV 100 mls/hr .Q10H MANNY Administration Insulin Human Regular 1 - 5 unit 02/15/21 12:00 02/27/21 06:07 Insulin Regular Human 300 Unit/3 Ml Vial SUBQ Not Given Q6HR [facility] Protocol Lisinopril 20 mg 02/18/21 09:00 02/27/21 07:46 Lisinopril 20 Mg Tablet PO 20 mg DAILY MANNY Administration Metoprolol Tartrate 50 mg 02/24/21 11:00 02/27/21 07:47 Metoprolol Tartrate 50 Mg Tablet NG 50 mg BID MANNY Administration Multi-Ingredient Ointment 1 applic 02/21/21 22:33 02/22/21 17:56 Zinc Oxide 20% Oint 30 Gm Tube TOP 1 applic PRN PRN Administration Skin Care Senna 8.6 - 17.2 mg 02/25/21 09:00 02/27/21 07:47 Senna 8.6 Mg Tablet PO 8.6 mg DAILY MANNY Administration Sodium Chloride 10 ml 02/14/21 07:43 02/14/21 13:32 Sodium Chloride Flush 0.9% 10 Ml Syringe IVP 10 ml PRN PRN Administration NEEDED PER PROVIDER ORDERS Sodium Chloride 10 ml 02/14/21 09:00 02/27/21 07:47 Sodium Chloride Flush 0.9% 10 Ml Syringe IVP Not Given 0100,0900,1700 MANNY - Lab Result Fish Bone Diagrams: 02/25/21 05:44 02/26/21 04:42 Subjective - Subjective Patient Reports: Other (pt denies any complaints.) Objective Vital Signs: Vital Signs - 24 hr 02/26/21 02/26/21 02/26/21 12:56 16:11 20:19 Temperature 36.7 C 37.7 C 38.8 C H Heart Rate [ 68 78 83 Brachial] Respiratory 18 22 22 Rate Blood Pressure Blood Pressure 127/78 124/68 131/73 H [Right Brachial artery] Blood Pressure [Right Radial artery] O2 Saturation 100 97 98 10/09/21 10/09/21 10/10/21 21:29 23:38 06:01 Temperature 37.8 C 37.3 C Heart Rate [ 69 80 Brachial] Respiratory 22 20 Rate Blood Pressure 131/73 H Blood Pressure [Right Brachial artery] Blood Pressure 111/62 126/73 [Right Radial artery] O2 Saturation 98 98 02/27/21 02/27/21 02/27/21 07:44 07:47 07:51 Temperature 36.9 C Heart Rate [ 90 90 Brachial] Respiratory 22 Rate Blood Pressure 122/74 Blood Pressure 122/74 122/74 [Right Brachial artery] Blood Pressure [Right Radial artery] O2 Saturation 97 02/27/21 08:38 Temperature 37.2 C Heart Rate [ 90 Brachial] Respiratory 20 Rate Blood Pressure Blood Pressure 122/74 [Right Brachial artery] Blood Pressure [Right Radial artery] O2 Saturation 97 Oxygen O2 Source Room air I&O (Last 24 Hrs): Intake and Output Totals x24h 02/25/21 02/26/21 02/27/21 23:59 23:59 23:59 Intake Total 3876.667 3179 1671.333 Output Total 1253 2050 465 Balance 2623.667 1129 1206.333 General: Alert, Oriented x3, Cooperative, No acute distress HEENT: Atraumatic, PERRLA, EOMI Neuro: Other (dense right side hemiparesis, aphasia) Cardiovascular: Regular rate, Normal S1, Normal S2, No murmurs Respiratory: Chest non-tender, No respiratory distress, Breath sounds nml Abdomen: Normal bowel sounds, Soft, No tenderness, No hepatospenomegaly, No masses Extremities: No clubbing, No cyanosis, No edema, Normal pulses, No tender ness/swelling - Results Results: Laboratory Results WBC 10.7 x10^3/uL (4.8-10.8) 02/25/21 05:44 RBC 4.69 10^6/uL (4.70-6.10) L 02/25/21 05:44 Hgb 11.1 g/dL (14.0-18.0) L 02/25/21 05:44 Hct 36.5 % (42.0-52.0) L 02/25/21 05:44 MCV 77.8 fL (80.0-94.0) L 02/25/21 05:44 MCH 23.7 pg (27.0-31.0) L 02/25/21 05:44 MCHC 30.4 g/dL (32.0-36.0) L 02/25/21 05:44 RDW 17.8 % (12.0-15.0) H 02/25/21 05:44 Plt Count 266 10^3/uL (130-450) 02/25/21 05:44 MPV 9.7 fL (7.4-11.4) 02/25/21 05:44 Neut # (Auto) 8.4 10^3/uL (1.5-6.6) H 02/25/21 05:44 Lymph # (Auto) 1.3 10^3/uL (1.5-3.5) L 02/25/21 05:44 White # (Auto) 0.8 10^3/uL (0.0-1.0) 02/25/21 05:44 Eos # (Auto) 0.2 10^3/uL (0.0-0.7) 02/25/21 05:44 Baso # (Auto) 0.0 10^3/uL (0.0-0.1) 02/25/21 05:44 Absolute Nucleated RBC 0.00 x10^3/uL 02/25/21 05:44 Nucleated RBC % 0.0 /100WBC 02/25/21 05:44 ESR 1 mm/Hr (0-20) 02/14/21 06:14 PT 12.6 secs (9.9-12.6) 02/14/21 06:14 INR 1.1 (0.8-1.2) 02/14/21 06:14 APTT 23.1 secs (24.9-33.3) L 02/14/21 06:14 Sodium 131 mmol/L (135-145) L 02/26/21 04:42 Potassium 3.9 mmol/L (3.5-5.0) 02/26/21 04:42 Chloride 100 mmol/L (101-111) L 02/26/21 04:42 Carbon Dioxide 23 mmol/L (21-32) 02/26/21 04:42 Anion Gap 8.0 (6-13) 02/26/21 04:42 BUN 15 mg/dL (6-20) 02/26/21 04:42 Creatinine 0.8 mg/dL (0.6-1.2) 02/26/21 04:42 Estimated GFR (MDRD) 118 (>89) 02/26/21 04:42 Glucose 117 mg/dL (70-100) H 02/26/21 04:42 POC Whole Bld Glucose 108 mg/dL (70 - 100) H 02/27/21 05:59 Estimat Average Glucose 111 mg/dL (70-100) H 02/14/21 08:16 Hemoglobin A1c % 5.5 % (4.27-6.07) 02/14/21 08:16 Calcium 8.3 mg/dL (8.5-10.3) L 02/26/21 04:42 Phosphorus 3.5 mg/dL (2.5-4.6) 02/26/21 04:42 Magnesium 2.0 mg/dL (1.7-2.8) 02/26/21 04:42 Iron 75 ug/dL (45-182) 02/15/21 08:18 TIBC 371 ug/dL (250-450) 02/15/21 08:18 % Saturation 20 % (20-50) 02/15/21 08:18 Transferrin 265 mg/dL (180-329) 02/15/21 08:18 Ferritin 22.5 ng/mL (23.9-336.2) L 02/15/21 08:18 Total Bilirubin 0.7 mg/dL (0.2-1.0) 02/26/21 04:42 AST 93 IU/L (10-42) H 02/26/21 04:42 ALT 103 IU/L (10-60) H 02/26/21 04:42 Alkaline Phosphatase 76 IU/L (42-121) 02/26/21 04:42 Total Protein 7.0 g/dL (6.7-8.2) 02/26/21 04:42 Albumin 2.6 g/dL (3.2-5.5) L 02/26/21 04:42 Globulin 4.4 g/dL (2.1-4.2) H 02/26/21 04:42 Albumin/Globulin Ratio 0.6 (1.0-2.2) L 02/26/21 04:42 Prealbumin 10 mg/dL (18-45) L 02/26/21 04:42 Triglycerides 55 mg/dL (-149) 02/15/21 05:28 Cholesterol 137 mg/dL (-199) 02/15/21 05:28 LDL Cholesterol, Calc 61 mg/dL (-129) 02/15/21 05:28 VLDL Cholesterol 11 mg/dL 02/15/21 05:28 HDL Cholesterol 65 mg/dL (60-) 02/15/21 05:28 LDL/HDL Ratio 0.9 (<3.6) 02/15/21 05:28 Cholesterol/HDL Ratio 2.1 (<5.0) 02/15/21 05:28 Lipase 30 U/L (22-51) 02/14/21 06:14 TSH 1.03 uIU/mL (0.34-5.60) 02/15/21 08:18 Nasal Adenovirus (PCR) NOT DETECTED 02/14/21 06:30 Nasal B. parapertussis DNA (PCR) NOT DETECTED 02/14/21 06:30 Nasal Coronavir 229E PCR NOT DETECTED 02/14/21 06:30 Nasal Coronavir HKU1 PCR NOT DETECTED 02/14/21 06:30 Nasal Coronavir NL63 PCR NOT DETECTED 02/14/21 06:30 Nasal Coronavir OC43 PCR NOT DETECTED 02/14/21 06:30 Nasal Enterovir/Rhinovir PCR NOT DETECTED 02/14/21 06:30 Nasal Influenza B PCR NOT DETECTED 02/14/21 06:30 Nasal Influenza A PCR NOT DETECTED 02/14/21 06:30 Nasal Parainfluen 1 PCR NOT DETECTED 02/14/21 06:30 Nasal Parainfluen 2 PCR NOT DETECTED 02/14/21 06:30 Nasal Parainfluen 3 PCR NOT DETECTED 02/14/21 06:30 Nasal Parainfluen 4 PCR NOT DETECTED 02/14/21 06:30 Nasal RSV (PCR) NOT DETECTED 02/14/21 06:30 Nasal B.pertussis DNA PCR NOT DETECTED 02/14/21 06:30 Nasal C.pneumoniae (PCR) NOT DETECTED 02/14/21 06:30 Cody Human Metapneumo PCR NOT DETECTED 02/14/21 06:30 Nasal M.pneumoniae (PCR) NOT DETECTED 02/14/21 06:30 Nasal SARS-CoV-2 (PCR) NOT DETECTED 02/14/21 06:30 Ethyl Alcohol < 5.0 mg/dL 02/14/21 06:14 SARS-CoV-2 (PCR) NOT DETECTED 02/23/21 18:56
[2021-02-27] MEDS: ZINC OXIDE 20% OINT 30 GM TUBE TOP PRN (18:06)
[2021-02-27] MEDS: ACETAMINOPHEN 325 MG TABLET PO PRN (20:58)
[2021-02-27] MEDS: ATORVASTATIN 40 MG TABLET NG SCH (20:59)
[2021-02-27 21:38] LABS: BASOPHILS % (AUTO) 0.2 %; EOSINOPHILS # (AUTO) 0.1 10^3/uL (0.0-0.7); EOSINOPHILS % (AUTO) 0.7 %; HCT - HEMATOCRIT 36.4 % (42.0-52.0); HGB - HEMOGLOBIN 11.5 g/dL (14.0-18.0); LYMPHOCYTES # (AUTO) 1.5 10^3/uL (1.5-3.5); LYMPHOCYTES % (AUTO) 8.2 %; MEAN CORPUSCULAR HEMOGLOBIN 24.3 pg (27.0-31.0); MEAN CORPUSCULAR HGB CONC 31.6 g/dL (32.0-36.0); MEAN CORPUSCULAR VOLUME 76.8 fL (80.0-94.0); MEAN PLATELET VOLUME 9.1 fL (7.4-11.4); MONOCYTES # (AUTO) 0.9 10^3/uL (0.0-1.0); MONOCYTES % (AUTO) 4.5 %; NEUTROPHILS # (AUTO) 16.2 10^3/uL (1.5-6.6); NEUTROPHILS % (AUTO) 86.1 %; PLT - PLATELET COUNT 289 10^3/uL (130-450); RED BLOOD COUNT 4.74 10^6/uL (4.70-6.10); RED CELL DISTRIBUTION WIDTH 17.6 % (12.0-15.0); WHITE BLOOD COUNT 18.8 x10^3/uL (4.8-10.8)
[2021-02-27 21:46] LABS: CALCIUM 8.2 mg/dL (8.5-10.3); CREATININE 0.8 mg/dL (0.6-1.2); POTASSIUM 3.9 mmol/L (3.5-5.0)
[2021-02-28] MEDS: INSULIN REGULAR HUMAN 300 UNIT/3 ML VIAL SUBQ SCH ×3 (00:12→11:12)
[2021-02-28 04:58] LABS: ALBUMIN 2.3 g/dL (3.2-5.5); ALBUMIN/GLOBULIN RATIO 0.5 (1.0-2.2); BILIRUBIN,TOTAL 0.8 mg/dL (0.2-1.0); CALCIUM 8.2 mg/dL (8.5-10.3); CREATININE 0.8 mg/dL (0.6-1.2); PHOSPHORUS 3.8 mg/dL (2.5-4.6); TOTAL PROTEIN 6.6 g/dL (6.7-8.2)
[2021-02-28] MEDS: DEXTROSE 5%-0.45% NACL 1,000 ML IV SCH ×2 (07:51→17:53)
--- NOTE | 2021-02-28 08:29 | PROVIDER PROGRESS NOTE ---
Subjective - Prog Note Date Prog Note Date: 02/28/21 Prog Note Time: 08:28 - Subjective Subjective: Nursing is concerned because they keep on hearing him cough. He is getting tube feed boluses. When I talked to the patient, he only responds yes no. He has aphasia. He tells me that he does not cough. He is not short of breath. He does not think he is aspirating. He uses his hand to go indicate to me that its more or less what he think is happening. Current Medications - Current Medications Current Medications: Active Medications Acetaminophen (Acetaminophen 325 Mg Tablet) 650 mg PO Q4HR PRN PRN Reason: Pain 1 to 4 Last Admin: 02/27/21 20:58 Dose: 650 mg Documented by: Aspirin (Aspirin Chew 81 Mg Tablet) 81 mg PEG DAILY [facility] Atorvastatin Calcium (Atorvastatin 40 Mg Tablet) 80 mg PEG QPM [facility]NY Clopidogrel Bisulfate (Clopidogrel 75 Mg Tablet) 75 mg PEG DAILY [facility] Last Admin: 02/28/21 09:06 Dose: 75 mg Documented by: Docusate Sodium (Docusate Sodium 250 Mg Capsule) 250 - 500 mg PO DAILY [facility] Last Admin: 02/28/21 09:07 Dose: Not Given Documented by: Dextrose/Sodium Chloride (D5.45ns) 1,000 mls @ 100 mls/hr IV .Q10H [facility] Last Admin: 02/28/21 17:53 Dose: 100 mls/hr Documented by: Lisinopril (Lisinopril 20 Mg Tablet) 20 mg PEG DAILY [facility] Metoprolol Tartrate (Metoprolol Tartrate 50 Mg Tablet) 50 mg PEG BID [facility] Multi-Ingredient Ointment (Zinc Oxide 20% Oint 30 Gm Tube) 1 applic TOP PRN PRN PRN Reason: Skin Care Last Admin: 02/28/21 18:34 Dose: 1 applic Documented by: Ondansetron HCl (Ondansetron 4 Mg/2 Ml Vial) 4 mg IVP Q6HR PRN PRN Reason: Nausea / Vomiting Senna (Senna 8.6 Mg Tablet) 8.6 - 17.2 mg PEG DAILY [facility] Sodium Chloride (Sodium Chloride Flush 0.9% 10 Ml Syringe) 10 ml IVP PRN PRN PRN Reason: NEEDED PER PROVIDER ORDERS Last Admin: 02/14/21 13:32 Dose: 10 ml Documented by: Sodium Chloride (Sodium Chloride Flush 0.9% 10 Ml Syringe) 10 ml IVP 0100,0900,1700 MANNY Last Admin: 02/28/21 17:21 Dose: Not Given Documented by: Objective - Vital Signs/Intake & Output Reviewed Vital Signs: Yes Vital Signs: Vital Signs x48h Temp Pulse Resp BP Pulse Ox 02/28/21 08:01 36.6 C 86 16 128/62 97 02/28/21 05:00 37.6 C 81 18 114/73 100 Intake & Output: Intake & Output 02/25/21 02/26/21 02/27/21 02/28/21 23:59 23:59 23:59 23:59 Intake Total 3876.667 3179 4619.000 1000 Output Total 1253 2050 1165 940 Balance 2623.667 1129 3454.000 60 - Objective General Appearance: positive: Alert, Other (Morbidly obese, pleasant, black male who uses yes no communication and uses his nonaffected arm to indicate with gestures) Eyes Bilateral: positive: PERRL, EOMI Neck: positive: No JVD. negative: Stiff neck Respiratory: positive: No respiratory distress. negative: Wheezes, Rales, Rhonchi Cardiovascular: positive: Regular rate & rhythm. negative: Gallop/S4, Friction rub Abdomen: positive: Non-tender, Nml bowel sounds, No distention Skin: positive: Warm, Dry Extremities: positive: No pedal edema Neurologic/Psychiatric: positive: Oriented x3, Other (Right facial droop, aphasia, right hemiplegia.But alert. Able to answer yes/no. Able to use his left hand to gesticulate, and he reaches out to shake my hand. He keeps on struggling to say something to me as I leave. I guess at many possibilities. ask him if he is trying to say thank you and yes) - Lab Results Fish Bones: 03/01/21 08:07 03/01/21 08:07 Other Labs: Lab Results x24hrs 02/28/21 02/27/21 02/27/21 Range/Units 04:08 23:45 21:30 WBC (4.8-10.8) x10^3/uL RBC (4.70-6.10) 10^6/uL Hgb (14.0-18.0) g/dL Hct (42.0-52.0) % MCV (80.0-94.0) fL MCH (27.0-31.0) pg MCHC (32.0-36.0) g/dL RDW (12.0-15.0) % Plt Count (130-450) 10^3/uL MPV (7.4-11.4) fL Neut # (Auto) (1.5-6.6) 10^3/uL Lymph # (Auto) (1.5-3.5) 10^3/uL [place] # (Auto) (0.0-1.0) 10^3/uL Eos # (Auto) (0.0-0.7) 10^3/uL Baso # (Auto) (0.0-0.1) 10^3/uL Absolute Nucleated RBC x10^3/uL Nucleated RBC % /100WBC Sodium 133 L 131 L (135-145) mmol/L Potassium 4.0 3.9 (3.5-5.0) mmol/L Chloride 101 100 L (101-111) mmol/L Carbon Dioxide 24 22 (21-32) mmol/L Anion Gap 8.0 9.0 (6-13) BUN 12 12 (6-20) mg/dL Creatinine 0.8 0.8 (0.6-1.2) mg/dL Estimated GFR (MDRD) 118 118 (>89) Glucose 127 H 134 H (70-100) mg/dL POC Whole Bld Glucose 139 H (70 - 100) mg/dL Calcium 8.2 L 8.2 L (8.5-10.3) mg/dL Phosphorus 3.8 (2.5-4.6) mg/dL Magnesium 2.0 (1.7-2.8) mg/dL Total Bilirubin 0.8 (0.2-1.0) mg/dL AST 83 H (10-42) IU/L ALT 114 H (10-60) IU/L Alkaline Phosphatase 85 (42-121) IU/L Total Protein 6.6 L (6.7-8.2) g/dL Albumin 2.3 L (3.2-5.5) g/dL Globulin 4.3 H (2.1-4.2) g/dL Albumin/Globulin Ratio 0.5 L (1.0-2.2) Prealbumin 7 L (18-45) mg/dL 02/27/21 02/27/21 02/27/21 Range/Units 21:30 18:12 11:21 WBC 18.8 H (4.8-10.8) x10^3/uL RBC 4.74 (4.70-6.10) 10^6/uL Hgb 11.5 L (14.0-18.0) g/dL Hct 36.4 L (42.0-52.0) % MCV 76.8 L (80.0-94.0) fL MCH 24.3 L (27.0-31.0) pg MCHC 31.6 L (32.0-36.0) g/dL RDW 17.6 H (12.0-15.0) % Plt Count 289 (130-450) 10^3/uL MPV 9.1 (7.4-11.4) fL Neut # (Auto) 16.2 H (1.5-6.6) 10^3/uL Lymph # (Auto) 1.5 (1.5-3.5) 10^3/uL [place] # (Auto) 0.9 (0.0-1.0) 10^3/uL Eos # (Auto) 0.1 (0.0-0.7) 10^3/uL Baso # (Auto) 0.0 (0.0-0.1) 10^3/uL Absolute Nucleated RBC 0.00 x10^3/uL Nucleated RBC % 0.0 /100WBC Sodium (135-145) mmol/L Potassium (3.5-5.0) mmol/L Chloride (101-111) mmol/L Carbon Dioxide (21-32) mmol/L Anion Gap (6-13) BUN (6-20) mg/dL Creatinine (0.6-1.2) mg/dL Estimated GFR (MDRD) (>89) Glucose (70-100) mg/dL POC Whole Bld Glucose 126 H 135 H (70 - 100) mg/dL Calcium (8.5-10.3) mg/dL Phosphorus (2.5-4.6) mg/dL Magnesium (1.7-2.8) mg/dL Total Bilirubin (0.2-1.0) mg/dL AST (10-42) IU/L ALT (10-60) IU/L Alkaline Phosphatase (42-121) IU/L Total Protein (6.7-8.2) g/dL Albumin (3.2-5.5) g/dL Globulin (2.1-4.2) g/dL Albumin/Globulin Ratio (1.0-2.2) Prealbumin (18-45) mg/dL 02/17/21 Range/Units 17:56 WBC (4.8-10.8) x10^3/uL RBC (4.70-6.10) 10^6/uL Hgb (14.0-18.0) g/dL Hct (42.0-52.0) % MCV (80.0-94.0) fL MCH (27.0-31.0) pg MCHC (32.0-36.0) g/dL RDW (12.0-15.0) % Plt Count (130-450) 10^3/uL MPV (7.4-11.4) fL Neut # (Auto) (1.5-6.6) 10^3/uL Lymph # (Auto) (1.5-3.5) 10^3/uL [place] # (Auto) (0.0-1.0) 10^3/uL Eos # (Auto) (0.0-0.7) 10^3/uL Baso # (Auto) (0.0-0.1) 10^3/uL Absolute Nucleated RBC x10^3/uL Nucleated RBC % /100WBC Sodium (135-145) mmol/L Potassium (3.5-5.0) mmol/L Chloride (101-111) mmol/L Carbon Dioxide (21-32) mmol/L Anion Gap (6-13) BUN (6-20) mg/dL Creatinine (0.6-1.2) mg/dL Estimated GFR (MDRD) (>89) Glucose (70-100) mg/dL POC Whole Bld Glucose 111 H (70 - 100) mg/dL Calcium (8.5-10.3) mg/dL Phosphorus (2.5-4.6) mg/dL Magnesium (1.7-2.8) mg/dL Total Bilirubin (0.2-1.0) mg/dL AST (10-42) IU/L ALT (10-60) IU/L Alkaline Phosphatase (42-121) IU/L Total Protein (6.7-8.2) g/dL Albumin (3.2-5.5) g/dL Globulin (2.1-4.2) g/dL Albumin/Globulin Ratio (1.0-2.2) Prealbumin (18-45) mg/dL Assessment/Plan - Problem List (1) Elevated WBC count Impression: This gentleman is at increased risk for aspiration. He has wide open reflux goi ng back into his throat before the PEG was placed. Since the PEG has been placed and has been started on tube feeds, he has been set up in bed. He only gets bolus tube feeds. Nevertheless nursing reports frequent intermittent coughing. Occasionally productive of white clear phlegm, sometimes not. His white cell count has been creeping up. Lung exam is negative for pneumonia. Plan: Check checks x-ray Qualifiers: Leukocytosis type: unspecified Qualified Code(s): D72.829 - Elevated white blood cell count, unspecified (2) Cerebrovascular accident (CVA) Impression: Right sided weakness persists,somewhat improved in the right lower extremity, able to lift his right foot off the bed right upper extremity still flaccid Aphasia continues but is also somewhat improved. Was able to answer a couple of questions with direct yes no answers today Comprehension seems to be improved as well Patient unable to swallow secondary to stroke NG tube was clotted and had to be removed, revealing a kink PEG tube was placed 02/24/21 at [facility] Continue PT/OT, with plans for referral to inpatient rehab. [facility] has accepted, but is pending insurance authorization Continue high-dose statin Continue aspirin Started Plavix today Continue blood pressure control D/C cleared when insurance accepts transfer to [facility] (2) Aphasia Assessment/Plan: Stable, see above (3) Hypertension Assessment/Plan: Slightly elevated, increased metoprolol tartrate from 25 to 50 mg BID (4) Atrial fibrillation Qualifiers: Atrial fibrillation type: longstanding persistent Qualified Code(s): I48.11 - Longstanding persistent atrial fibrillation Assessment/Plan: Stable, rate controlled Not anticoagulated on admission - was supposed to see neurology after last stroke to determine if this would be advisable. Given he's on asa and plavix, and recently had G tube, consider anticoag after d/c, vs ASA and Plavix alone to minimize bleeding.
[2021-02-28] MEDS: METOPROLOL TARTRATE 50 MG TABLET NG SCH (09:02)
[2021-02-28] MEDS: SODIUM CHLORIDE FLUSH 0.9% 10 ML SYRINGE IVP SCH ×2 (09:06→17:21)
[2021-02-28] MEDS: lisinopriL 20 MG TABLET PO SCH (09:06)
[2021-02-28] MEDS: SENNA 8.6 MG TABLET PO SCH (09:06)
[2021-02-28] MEDS: ASPIRIN CHEW 81 MG TABLET NG SCH (09:06)
[2021-02-28] MEDS: CLOPIDOGREL 75 MG TABLET PEG SCH (09:06)
[2021-02-28] MEDS: DOCUSATE SODIUM 250 MG CAPSULE PO SCH (09:07)
[2021-02-28] MEDS: ZINC OXIDE 20% OINT 30 GM TUBE TOP PRN (18:34)
[2021-02-28] MEDS: METOPROLOL TARTRATE 50 MG TABLET PEG SCH (20:43)
[2021-02-28] MEDS: ATORVASTATIN 40 MG TABLET PEG SCH (20:44)
[2021-03-01] MEDS: DEXTROSE 5%-0.45% NACL 1,000 ML IV SCH (03:53)
[2021-03-01] MEDS: SODIUM CHLORIDE FLUSH 0.9% 10 ML SYRINGE IVP SCH ×4 (03:53→20:41)
[2021-03-01] MEDS: CLOPIDOGREL 75 MG TABLET PEG SCH (08:11)
[2021-03-01] MEDS: SENNA 8.6 MG TABLET PEG SCH (08:11)
[2021-03-01] MEDS: METOPROLOL TARTRATE 50 MG TABLET PEG SCH ×2 (08:11→20:40)
[2021-03-01] MEDS: ASPIRIN CHEW 81 MG TABLET PEG SCH (08:11)
[2021-03-01 08:12] LABS: BASOPHILS % (AUTO) 0.2 %; EOSINOPHILS # (AUTO) 0.2 10^3/uL (0.0-0.7); EOSINOPHILS % (AUTO) 0.9 %; HCT - HEMATOCRIT 34.1 % (42.0-52.0); HGB - HEMOGLOBIN 10.8 g/dL (14.0-18.0); LYMPHOCYTES # (AUTO) 1.5 10^3/uL (1.5-3.5); LYMPHOCYTES % (AUTO) 8.1 %; MEAN CORPUSCULAR HEMOGLOBIN 24.5 pg (27.0-31.0); MEAN CORPUSCULAR HGB CONC 31.7 g/dL (32.0-36.0); MEAN CORPUSCULAR VOLUME 77.5 fL (80.0-94.0); MEAN PLATELET VOLUME 9.4 fL (7.4-11.4); MONOCYTES % (AUTO) 5.6 %; NEUTROPHILS # (AUTO) 15.8 10^3/uL (1.5-6.6); NEUTROPHILS % (AUTO) 84.7 %; PLT - PLATELET COUNT 319 10^3/uL (130-450); RED CELL DISTRIBUTION WIDTH 17.9 % (12.0-15.0); WHITE BLOOD COUNT 18.7 x10^3/uL (4.8-10.8)
[2021-03-01] MEDS: DOCUSATE SODIUM 250 MG CAPSULE PO SCH (08:12)
[2021-03-01] MEDS: lisinopriL 20 MG TABLET PEG SCH (08:16)
[2021-03-01 08:22] LABS: CREATININE 0.9 mg/dL (0.6-1.2); POTASSIUM 3.8 mmol/L (3.5-5.0)
--- NOTE | 2021-03-01 10:17 | XRAY Report ---
PROCEDURE: Chest 1 View X-Ray INDICATIONS: cough aspiration TECHNIQUE: One view of the chest was acquired. COMPARISON: February 18, 2021 FINDINGS: SUPPORT DEVICES: None. LUNG/PLEURA: Reduced lung volumes are prominence of the bronchovascular markings. No focal consolidat ion or pulmonary edema. No pleural effusion or space-occupying pneumothorax. MEDIASTINUM: Enlargement of cardiac silhouette, partially exaggerated by technique. BONES/SOFT TISSUES: No acute abnormality. IMPRESSION: 1.No acute cardiopulmonary abnormality. Reviewed by: Ari Denson MD on 03/01/2021 10:15 AM PDT Approved by: Ari Denson MD on 03/01/2021 10:15 AM PDT Station ID: [id number]
--- NOTE | 2021-03-01 18:03 | PROVIDER PROGRESS NOTE ---
Subjective - Prog Note Date Prog Note Date: 03/01/21 Prog Note Time: 18:01 - Subjective Subjective: Chest x-ray was checked yesterday and there is no acute cardiopulmonary abnormality. He continues to have cough. No fever. White cell count continues to be at 18.7 (he was 18.8 yesterday). He is unable to give me a review of systems. He does answer yes or no and will reach over with his left hand to shake my left hand. Smiles spontaneously. Tries very hard to express himself but is difficult with the expressive aphasia. In my ability to communicate with him he is not telling me that he is uncomfortable. He denies abdominal pain, chest congestion. Shrug is left shoulder when I ask if anything is bothering him. Current Medications - Current Medications Current Medications: Active Medications Acetaminophen (Acetaminophen 325 Mg Tablet) 650 mg PO Q4HR PRN PRN Reason: Pain 1 to 4 Last Admin: 02/27/21 20:58 Dose: 650 mg Documented by: Aspirin (Aspirin Chew 81 Mg Tablet) 81 mg PEG DAILY [facility] Last Admin: 03/01/21 08:11 Dose: 81 mg Documented by: Atorvastatin Calcium (Atorvastatin 40 Mg Tablet) 80 mg PEG QPM [facility] Last Admin: 02/28/21 20:44 Dose: 80 mg Documented by: Clopidogrel Bisulfate (Clopidogrel 75 Mg Tablet) 75 mg PEG DAILY [facility] Last Admin: 03/01/21 08:11 Dose: 75 mg Documented by: Docusate Sodium (Docusate Sodium 250 Mg Capsule) 250 - 500 mg PO DAILY [facility] Last Admin: 03/01/21 08:12 Dose: Not Given Documented by: Lisinopril (Lisinopril 20 Mg Tablet) 20 mg PEG DAILY [facility] Last Admin: 03/01/21 08:16 Dose: 20 mg Documented by: Metoprolol Tartrate (Metoprolol Tartrate 50 Mg Tablet) 50 mg PEG BID [facility] Last Admin: 03/01/21 08:11 Dose: 50 mg Documented by: Multi-Ingredient Ointment (Zinc Oxide 20% Oint 30 Gm Tube) 1 applic TOP PRN PRN PRN Reason: Skin Care Last Admin: 02/28/21 18:34 Dose: 1 applic Documented by: Ondansetron HCl (Ondansetron 4 Mg/2 Ml Vial) 4 mg IVP Q6HR PRN PRN Reason: Nausea / Vomiting Senna (Senna 8.6 Mg Tablet) 8.6 - 17.2 mg PEG DAILY [facility] Last Admin: 03/01/21 08:11 Dose: 8.6 mg Documented by: Sodium Chloride (Sodium Chloride Flush 0.9% 10 Ml Syringe) 10 ml IVP PRN PRN PRN Reason: NEEDED PER PROVIDER ORDERS Last Admin: 02/14/21 13:32 Dose: 10 ml Documented by: Sodium Chloride (Sodium Chloride Flush 0.9% 10 Ml Syringe) 10 ml IVP 0100,0900,1700 [facility] Last Admin: 03/01/21 08:12 Dose: Not Given Documented by: Objective - Vital Signs/Intake & Output Reviewed Vital Signs: Yes Vital Signs: Vital Signs x48h Temp Pulse Resp BP Pulse Ox 03/01/21 16:00 37.6 C 78 18 139/81 H 99 Intake & Output: Intake & Output 02/26/21 02/27/21 02/28/21 03/01/21 23:59 23:59 23:59 23:59 Intake Total 3179 4619.000 4486 3062 Output Total 2050 1165 1990 1690 Balance 1129 3454.000 2496 1372 - Objective General Appearance: positive: No acute distress, Alert Eyes Bilateral: positive: PERRL, EOMI ENT: positive: No signs of dehydration Neck: positive: No JVD. negative: Stiff neck Respiratory: positive: No respiratory distress, Other (He does have an occasional cough during my exam. But it only happens once or twice. Is 1 cough, some clearance of phlegm that he swallows. No respiratory distress.). negative: Wheezes, Rales, Rhonchi Cardiovascular: positive: Irregularly irregular. negative: Gallop/S4, Friction rub Abdomen: positive: Non-tender, No organomegaly, Nml bowel sounds, No distention, Other (The PEG site had very foul-smelling drainage this morning. Nurse reported it was so severe it made her gag. But there is no induration, heat, surrounding cellulitis. There may be some redness at the skin insertion.) Skin: positive: Warm, Dry Extremities: positive: Non-tender, Full ROM Neurologic/Psychiatric: positive: Other (Right facial droop, aphasia, right hemiplegia.But alert. Able to answer yes/no. Able to use his left hand to ges ticulate, and he reaches out to shake my hand.) - Lab Results Fish Bones: 03/01/21 08:07 03/01/21 08:07 Other Labs: Lab Results x24hrs 03/01/21 03/01/21 02/28/21 Range/Units 08:07 08:07 18:50 WBC 18.7 H (4.8-10.8) x10^3/uL RBC 4.40 L (4.70-6.10) 10^6/uL Hgb 10.8 L (14.0-18.0) g/dL Hct 34.1 L (42.0-52.0) % MCV 77.5 L (80.0-94.0) fL MCH 24.5 L (27.0-31.0) pg MCHC 31.7 L (32.0-36.0) g/dL RDW 17.9 H (12.0-15.0) % Plt Count 319 (130-450) 10^3/uL MPV 9.4 (7.4-11.4) fL Neut # (Auto) 15.8 H (1.5-6.6) 10^3/uL Lymph # (Auto) 1.5 (1.5-3.5) 10^3/uL [place] # (Auto) 1.0 (0.0-1.0) 10^3/uL Eos # (Auto) 0.2 (0.0-0.7) 10^3/uL Baso # (Auto) 0.0 (0.0-0.1) 10^3/uL Absolute Nucleated RBC 0.00 x10^3/uL Nucleated RBC % 0.0 /100WBC Sodium 131 L (135-145) mmol/L Potassium 3.8 (3.5-5.0) mmol/L Chloride 100 L (101-111) mmol/L Carbon Dioxide 22 (21-32) mmol/L Anion Gap 9.0 (6-13) BUN 9 (6-20) mg/dL Creatinine 0.9 (0.6-1.2) mg/dL Estimated GFR (MDRD) 103 (>89) Glucose 118 H (70-100) mg/dL POC Whole Bld Glucose 107 H (70 - 100) mg/dL Calcium 8.0 L (8.5-10.3) mg/dL Assessment/Plan - Problem List (1) Elevated WBC count Impression: This gentleman is at increased risk for aspiration. He has wide open reflux going back into his throat before the PEG was placed. Since the PEG has been placed and has been started on tube feeds, he has been set up in bed. He only gets bolus tube feeds. Nevertheless nursing reports frequent intermittent coughing. Occasionally productive of white clear phlegm, sometimes not. His white cell count has been creeping up. Lung exam is negative for pneumonia. Chest x-ray done on February 28 was negative for pneumonia. General surgery is worried that an organ may have been bruised or damage through this interventional PEG placement. Plan: CT of abdomen and pelvis Qualifiers: Leukocytosis type: unspecified Qualified Code(s): D72.829 - Elevated white blood cell count, unspecified (2) Cerebrovascular accident (CVA) Impression: Right sided weakness persists,somewhat improved in the right lower extremity, able to lift his right foot off the bed right upper extremity still flaccid Aphasia continues but is also somewhat improved. Was able to answer a couple of questions with direct yes no answers Comprehension seems to be improved as well Patient unable to swallow secondary to stroke NG tube was clotted and had to be removed, revealing a kink PEG tube was placed 02/24/21 at [facility] PT/OT, with plans for referral to inpatient rehab. [facility] has accepted, but is pending insurance authorization Continue high-dose statin Continue aspirin Started Plavix 02/25 Continue blood pressure control D/C cleared when insurance accepts transfer to [facility] (3) Aphasia Assessment/Plan: Stable, see above (4) Hypertension Assessment/Plan: Slightly elevated, increased metoprolol tartrate from 25 to 50 mg BID (5) Atrial fibrillation Qualifiers: Atrial fibrillation type: longstanding persistent Qualified Code(s): I48.11 - Longstanding persistent atrial fibrillation Assessment/Plan: Stable, rate controlled Not anticoagulated on admission - was supposed to see neurology after last stroke to determine if this would be advisable. Given he's on asa and plavix, and recently had G tube, consider anticoag after d/c, vs ASA and Plavix alone to minimize bleeding.
--- NOTE | 2021-03-01 19:33 | CT Report ---
PROCEDURE: Abdomen/Pelvis WO INDICATIONS: s/p PEG, now w rising WBC, foul drainage from site TECHNIQUE: Noncontrast 5 mm thick sections acquired from the diaphragms to the symphysis. 5 mm coronal and sagi ttal reformats were then performed. For radiation dose reduction, the following was used: automated exposure control, adjustment of mA and/or kV according to patient size. COMPARISON: None. FINDINGS: Image quality: Motion and artifact from overlying upper extremities are present limiting areas of ekaterina luation. ABDOMEN: Lung bases: Lung bases demonstrate dependent changes. Heart size is mildly prominent. Solid organs: Liver and spleen are normal in size. Gallbladder is not visualized. Pancreas is norm al in contours. No adrenal nodules. Kidneys are normal in size, without hydronephrosis or nephrolit hiasis. Peritoneum and bowel: Unenhanced bowel loops demonstrate normal wall thickness and caliber. No free fluid or air. PEG tube is present within the stomach. There is mild appearance of surrounding infla mmatory change in punctate foci of air within the subcutaneous fat at the insertion site. No well-def ined focal fluid collection is identified. Nodes and vessels: No retroperitoneal or mesenteric adenopathy by size criteria. Aorta and inferior vena cava are normal in caliber. Miscellaneous: No ventral hernias. PELVIS: Genitourinary: Bladder wall thickness is normal. Miscellaneous: Bilateral fat-containing inguinal hernias are present. No adenopathy. Bones: No suspicious bony lesions. No vertebral body compression fractures. IMPRESSION: Prominent artifact is present within exam. 2. PEG tube is noted within the stomach. Areas of subcutaneous fat inflammatory change and air are pr esent along the insertion track. However, no defined fluid collection such as abscess is clearly iden tified. However, secondary to significant artifact, small developing fluid collection may not be read padilla apparent. Reviewed by: Jenelle Morrissey MD on 03/01/2021 7:32 PM PDT Approved by: Jenelle Morrissey MD on 03/01/2021 7:32 PM PDT Station ID: [id number]
[2021-03-01] MEDS: ATORVASTATIN 40 MG TABLET PEG SCH (20:40)
[2021-03-02 05:44] LABS: BASOPHILS # (AUTO) 0.1 10^3/uL (0.0-0.1); BASOPHILS % (AUTO) 0.3 %; EOSINOPHILS # (AUTO) 0.3 10^3/uL (0.0-0.7); EOSINOPHILS % (AUTO) 1.6 %; HCT - HEMATOCRIT 33.8 % (42.0-52.0); HGB - HEMOGLOBIN 10.5 g/dL (14.0-18.0); LYMPHOCYTES # (AUTO) 1.4 10^3/uL (1.5-3.5); LYMPHOCYTES % (AUTO) 8.4 %; MEAN CORPUSCULAR HEMOGLOBIN 23.9 pg (27.0-31.0); MEAN CORPUSCULAR HGB CONC 31.1 g/dL (32.0-36.0); MEAN CORPUSCULAR VOLUME 76.8 fL (80.0-94.0); MONOCYTES # (AUTO) 0.9 10^3/uL (0.0-1.0); MONOCYTES % (AUTO) 5.6 %; NEUTROPHILS % (AUTO) 83.6 %; PLT - PLATELET COUNT 346 10^3/uL (130-450); RED CELL DISTRIBUTION WIDTH 18.2 % (12.0-15.0); WHITE BLOOD COUNT 16.7 x10^3/uL (4.8-10.8)
[2021-03-02 05:49] LABS: CALCIUM 8.1 mg/dL (8.5-10.3); CREATININE 0.8 mg/dL (0.6-1.2)
[2021-03-02] MEDS: DOCUSATE SODIUM 250 MG CAPSULE PO SCH (08:30)
[2021-03-02] MEDS: SENNA 8.6 MG TABLET PEG SCH (08:30)
[2021-03-02] MEDS: METOPROLOL TARTRATE 50 MG TABLET PEG SCH ×2 (08:48→21:27)
[2021-03-02] MEDS: CLOPIDOGREL 75 MG TABLET PEG SCH (08:49)
[2021-03-02] MEDS: ASPIRIN CHEW 81 MG TABLET PEG SCH (08:49)
[2021-03-02] MEDS: lisinopriL 20 MG TABLET PEG SCH (08:49)
[2021-03-02] MEDS: SODIUM CHLORIDE FLUSH 0.9% 10 ML SYRINGE IVP SCH ×2 (16:31→16:32)
--- NOTE | 2021-03-02 18:35 | PROVIDER PROGRESS NOTE ---
Subjective - Prog Note Date Prog Note Date: 03/02/21 Prog Note Time: 18:27 - Subjective Pt reports feeling: No change Subjective: no changes from yesterday and no new complaints Current Medications - Current Medications Current Medications: Active Medications Acetaminophen (Acetaminophen 325 Mg Tablet) 650 mg PO Q4HR PRN PRN Reason: Pain 1 to 4 Last Admin: 02/27/21 20:58 Dose: 650 mg Documented by: Aspirin (Aspirin Chew 81 Mg Tablet) 81 mg PEG DAILY [facility] Last Admin: 03/02/21 08:49 Dose: 81 mg Documented by: Atorvastatin Calcium (Atorvastatin 40 Mg Tablet) 80 mg PEG QPM [facility] Last Admin: 03/01/21 20:40 Dose: 80 mg Documented by: Clopidogrel Bisulfate (Clopidogrel 75 Mg Tablet) 75 mg PEG DAILY [facility] Last Admin: 03/02/21 08:49 Dose: 75 mg Documented by: Docusate Sodium (Docusate Sodium 250 Mg Capsule) 250 - 500 mg PO DAILY [facility] Last Admin: 03/02/21 08:30 Dose: Not Given Documented by: Lisinopril (Lisinopril 20 Mg Tablet) 20 mg PEG DAILY [facility] Last Admin: 03/02/21 08:49 Dose: 20 mg Documented by: Metoprolol Tartrate (Metoprolol Tartrate 50 Mg Tablet) 50 mg PEG BID [facility] Last Admin: 03/02/21 08:48 Dose: 50 mg Documented by: Multi-Ingredient Ointment (Zinc Oxide 20% Oint 30 Gm Tube) 1 applic TOP PRN PRN PRN Reason: Skin Care Last Admin: 02/28/21 18:34 Dose: 1 applic Documented by: Ondansetron HCl (Ondansetron 4 Mg/2 Ml Vial) 4 mg IVP Q6HR PRN PRN Reason: Nausea / Vomiting Senna (Senna 8.6 Mg Tablet) 8.6 - 17.2 mg PEG DAILY [facility] Last Admin: 03/02/21 08:30 Dose: Not Given Documented by: Sodium Chloride (Sodium Chloride Flush 0.9% 10 Ml Syringe) 10 ml IVP PRN PRN PRN Reason: NEEDED PER PROVIDER ORDERS Last Admin: 02/14/21 13:32 Dose: 10 ml Documented by: Sodium Chloride (Sodium Chloride Flush 0.9% 10 Ml Syringe) 10 ml IVP 0100,0900,1700 [facility] Last Admin: 03/02/21 16:32 Dose: Not Given Documented by: Objective - Vital Signs/Intake & Output Reviewed Vital Signs: Yes Vital Signs: Vital Signs x48h Temp Pulse Resp BP Pulse Ox 03/02/21 16:58 37.1 C 80 20 119/64 99 03/02/21 13:07 36.7 C 74 16 107/64 99 Intake & Output: Intake & Output 02/27/21 02/28/21 03/01/21 03/02/21 23:59 23:59 23:59 23:59 Intake Total 4619.000 4486 4262 1642 Output Total 1164 1989 2124 870 Balance 3454.000 2496 2137 772 - Objective General Appearance: positive: Alert, Mild distress Eyes Bilateral: positive: PERRL, EOMI ENT: positive: No signs of dehydration Neck: positive: No JVD. negative: Stiff neck Respiratory: positive: No respiratory distress. negative: Wheezes, Rales, Rhonchi Cardiovascular: positive: Regular rate & rhythm. negative: Gallop/S4, Friction rub Abdomen: positive: Non-tender, No organomegaly, Nml bowel sounds, No distention, Other (large obese panus) Skin: positive: Warm, Dry Neurologic/Psychiatric: positive: Other (And answering multiple choice questions he is alert to person place and time. Right hemiplegia with right arm flaccid, able to lift right leg off bed. Left arm moving spontaneously to greet me, shake my hand, and move with purpose. Fully moves left leg off the bed. Aphasia, dysphagia.) - Lab Results Fish Bones: 03/02/21 05:25 03/02/21 05:25 Other Labs: Lab Results x24hrs 03/02/21 03/02/21 Range/Units 05:25 05:25 WBC 16.7 H (4.8-10.8) x10^3/uL RBC 4.40 L (4.70-6.10) 10^6/uL Hgb 10.5 L (14.0-18.0) g/dL Hct 33.8 L (42.0-52.0) % MCV 76.8 L (80.0-94.0) fL MCH 23.9 L (27.0-31.0) pg MCHC 31.1 L (32.0-36.0) g/dL RDW 18.2 H (12.0-15.0) % Plt Count 346 (130-450) 10^3/uL MPV 9.0 (7.4-11.4) fL Neut # (Auto) 14.0 H (1.5-6.6) 10^3/uL Lymph # (Auto) 1.4 L (1.5-3.5) 10^3/uL [place] # (Auto) 0.9 (0.0-1.0) 10^3/uL Eos # (Auto) 0.3 (0.0-0.7) 10^3/uL Baso # (Auto) 0.1 (0.0-0.1) 10^3/uL Absolute Nucleated RBC 0.00 x10^3/uL Nucleated RBC % 0.0 /100WBC Sodium 131 L (135-145) mmol/L Potassium 4.0 (3.5-5.0) mmol/L Chloride 100 L (101-111) mmol/L Carbon Dioxide 22 (21-32) mmol/L Anion Gap 9.0 (6-13) BUN 10 (6-20) mg/dL Creatinine 0.8 (0.6-1.2) mg/dL Estimated GFR (MDRD) 118 (>89) Glucose 109 H (70-100) mg/dL Calcium 8.1 L (8.5-10.3) mg/dL Assessment/Plan - Problem List (1) Elevated WBC count Impression: This gentleman is at increased risk for aspiration. He has wide open reflux going back into his throat before the PEG was placed. Since the PEG has been placed and has been started on tube feeds, he has been set up in bed. He only gets bolus tube feeds. Nevertheless nursing reports frequent intermittent coughing. Occasionally productive of white clear phlegm, sometimes not. His white cell count has been creeping up. Lung exam is negative for pneumonia. Chest x-ray done on February 28 was negative for pneumonia. General surgery is worried that an organ may have been bruised or damage through this intervent ional PEG placement. CT of abdomen and pelvis was done March 01. Lung bases had dependent changes but no pneumonia. Liver and spleen were normal. Pancreas normal. Unenhanced bowel loops demonstrated normal wall thickness and caliber. No free air or fluid. PEG was present within the stomach. Mild appearance of surrounding inflammation change with punctate foci of air within the subcutaneous fat at the insertion site of the PEG. No defined fluid collection identified. No ventral hernias. Bilateral fat-containing inguinal hernias. Plan: At this time there is some nonspecific inflammatory changes surrounding the PEG tube insertion site. May be that is the cause of his mildly elevated white cell count. White cell count came down to 16.7 today. It was 18. I will discuss with general surgery. Will decide on starting antibiotics depending on their input. Qualifiers: Leukocytosis type: unspecified Qualified Code(s): D72.829 - Elevated white blood cell count, unspecified Stable or resolved problems: (2) Cerebrovascular accident (CVA) Impression: Right sided weakness persists,somewhat improved in the right lower extremity, able to lift his right foot off the bed, right upper extremity still flaccid Aphasia continues but is also somewhat improved. Was able to answer a couple of questions with direct yes no answers Comprehension improved from admit but difficult to completely assess since he can't find the words but can do yes no. He gets frustrated and gives up some times. Patient unable to swallow secondary to stroke NG tube was clotted and had to be removed, revealing a kink PEG tube was placed 02/24/21 at [facility] Continue PT/OT, with plans for referral to inpatient rehab. [facility] has accepted, but is pending insurance authorization Continue high-dose statin Continue aspirin Started Plavix 02/25 Continue blood pressure control D/C cleared when insurance accepts transfer to [facility] (3) Aphasia Assessment/Plan: Stable, see above (4) Hypertension Assessment/Plan: Slightly elevated, increased metoprolol tartrate from 25 to 50 mg BID (5) Atrial fibrillation Qualifiers: Atrial fibrillation type: longstanding persistent Qualified Code(s): I48.11 - Longstanding persistent atrial fibrillation Assessment/Plan: Stable, rate controlled Not anticoagulated on admission - was supposed to see neurology after last stroke to determine if this would be advisable. Given he's on asa and plavix, and recently had G tube, consider anticoag after d/c, vs ASA and Plavix alone to minimize bleeding.
[2021-03-02] MEDS: ATORVASTATIN 40 MG TABLET PEG SCH (21:27)
[2021-03-03] MEDS: SODIUM CHLORIDE FLUSH 0.9% 10 ML SYRINGE IVP SCH ×3 (01:10→17:31)
[2021-03-03 06:11] LABS: BASOPHILS % (AUTO) 0.3 %; EOSINOPHILS # (AUTO) 0.3 10^3/uL (0.0-0.7); EOSINOPHILS % (AUTO) 2.2 %; HCT - HEMATOCRIT 32.9 % (42.0-52.0); HGB - HEMOGLOBIN 10.3 g/dL (14.0-18.0); LYMPHOCYTES # (AUTO) 1.3 10^3/uL (1.5-3.5); LYMPHOCYTES % (AUTO) 10.1 %; MEAN CORPUSCULAR HEMOGLOBIN 23.9 pg (27.0-31.0); MEAN CORPUSCULAR HGB CONC 31.3 g/dL (32.0-36.0); MEAN CORPUSCULAR VOLUME 76.3 fL (80.0-94.0); MEAN PLATELET VOLUME 9.1 fL (7.4-11.4); MONOCYTES # (AUTO) 0.6 10^3/uL (0.0-1.0); MONOCYTES % (AUTO) 4.9 %; NEUTROPHILS # (AUTO) 10.7 10^3/uL (1.5-6.6); NEUTROPHILS % (AUTO) 81.9 %; PLT - PLATELET COUNT 388 10^3/uL (130-450); RED BLOOD COUNT 4.31 10^6/uL (4.70-6.10)
[2021-03-03 06:23] LABS: ALBUMIN 2.2 g/dL (3.2-5.5); ALBUMIN/GLOBULIN RATIO 0.5 (1.0-2.2); BILIRUBIN,TOTAL 0.7 mg/dL (0.2-1.0); CALCIUM 8.2 mg/dL (8.5-10.3); CREATININE 0.7 mg/dL (0.6-1.2); PHOSPHORUS 4.2 mg/dL (2.5-4.6); TOTAL PROTEIN 6.8 g/dL (6.7-8.2)
[2021-03-03] MEDS: ASPIRIN CHEW 81 MG TABLET PEG SCH (08:49)
[2021-03-03] MEDS: lisinopriL 20 MG TABLET PEG SCH (08:49)
[2021-03-03] MEDS: DOCUSATE SODIUM 250 MG CAPSULE PO SCH (08:49)
[2021-03-03] MEDS: METOPROLOL TARTRATE 50 MG TABLET PEG SCH ×2 (08:49→22:11)
[2021-03-03] MEDS: CLOPIDOGREL 75 MG TABLET PEG SCH (08:49)
[2021-03-03] MEDS: SENNA 8.6 MG TABLET PEG SCH (08:50)
--- NOTE | 2021-03-03 08:50 | PROVIDER PROGRESS NOTE ---
Subjective - Prog Note Date Prog Note Date: 03/03/21 Prog Note Time: 08:44 - Subjective Subjective: he is without complaints. same plegia and foul smelling drainage from PEG Current Medications - Current Medications Current Medications: Active Medications Acetaminophen (Acetaminophen 325 Mg Tablet) 650 mg PO Q4HR PRN PRN Reason: Pain 1 to 4 Last Admin: 02/27/21 20:58 Dose: 650 mg Documented by: Aspirin (Aspirin Chew 81 Mg Tablet) 81 mg PEG DAILY [facility] Last Admin: 03/03/21 08:49 Dose: 81 mg Documented by: Atorvastatin Calcium (Atorvastatin 40 Mg Tablet) 80 mg PEG QPM [facility] Last Admin: 03/02/21 21:27 Dose: 80 mg Documented by: Clopidogrel Bisulfate (Clopidogrel 75 Mg Tablet) 75 mg PEG DAILY [facility] Last Admin: 03/03/21 08:49 Dose: 75 mg Documented by: Docusate Sodium (Docusate Sodium 250 Mg Capsule) 250 - 500 mg PO DAILY [facility] Last Admin: 03/03/21 08:49 Dose: Not Given Documented by: Lisinopril (Lisinopril 20 Mg Tablet) 20 mg PEG DAILY [facility] Last Admin: 03/03/21 08:49 Dose: 20 mg Documented by: Metoprolol Tartrate (Metoprolol Tartrate 50 Mg Tablet) 50 mg PEG BID [facility] Last Admin: 03/03/21 08:49 Dose: 50 mg Documented by: Multi-Ingredient Ointment (Zinc Oxide 20% Oint 30 Gm Tube) 1 applic TOP PRN PRN PRN Reason: Skin Care Last Admin: 02/28/21 18:34 Dose: 1 applic Documented by: Ondansetron HCl (Ondansetron 4 Mg/2 Ml Vial) 4 mg IVP Q6HR PRN PRN Reason: Nausea / Vomiting Senna (Senna 8.6 Mg Tablet) 8.6 - 17.2 mg PEG DAILY [facility] Last Admin: 03/03/21 08:50 Dose: Not Given Documented by: Sodium Chloride (Sodium Chloride Flush 0.9% 10 Ml Syringe) 10 ml IVP PRN PRN PRN Reason: NEEDED PER PROVIDER ORDERS Last Admin: 02/14/21 13:32 Dose: 10 ml Documented by: Sodium Chloride (Sodium Chloride Flush 0.9% 10 Ml Syringe) 10 ml IVP 0100,0900,1700 [facility] Last Admin: 03/03/21 08:50 Dose: 10 ml Documented by: Objective - Vital Signs/Intake & Output Reviewed Vital Signs: Yes Vital Signs: Vital Signs x48h Temp Pulse Resp BP BP Pulse Ox 03/03/21 08:26 36.8 C 75 18 123/70 97 03/03/21 07:38 36.9 C 75 20 123/60 96 Intake & Output: Intake & Output 02/28/21 03/01/21 03/02/21 03/03/21 23:59 23:59 23:59 23:59 Intake Total 4486 4262 2690 0 Output Total 1989 2124 1700 Balance 2496 2137 990 0 - Objective General Appearance: positive: Alert Eyes Bilateral: positive: PERRL, EOMI ENT: positive: No signs of dehydration Neck: positive: No JVD. negative: Stiff neck Respiratory: positive: No respiratory distress. negative: Wheezes, Rales, Rhonchi Cardiovascular: positive: Irregularly irregular (but have to really listen, sounds regular at times). negative: Gallop/S4, Friction rub Abdomen: positive: Non-tender, Nml bowel sounds, No distention, Other (obese abdominal panus) Skin: positive: Warm, Dry Neurologic/Psychiatric: positive: Other (right hemiplegia: arm is flacid, leg can move. R facial droop. Aphasia. Profound dysphagia.) - Lab Results Fish Bones: 03/03/21 05:47 03/03/21 05:47 Other Labs: Lab Results x24hrs 03/03/21 03/03/21 Range/Units 05:47 05:47 WBC 13.0 H (4.8-10.8) x10^3/uL RBC 4.31 L (4.70-6.10) 10^6/uL Hgb 10.3 L (14.0-18.0) g/dL Hct 32.9 L (42.0-52.0) % MCV 76.3 L (80.0-94.0) fL MCH 23.9 L (27.0-31.0) pg MCHC 31.3 L (32.0-36.0) g/dL RDW 18.0 H (12.0-15.0) % Plt Count 388 (130-450) 10^3/uL MPV 9.1 (7.4-11.4) fL Neut # (Auto) 10.7 H (1.5-6.6) 10^3/uL Lymph # (Auto) 1.3 L (1.5-3.5) 10^3/uL [place] # (Auto) 0.6 (0.0-1.0) 10^3/uL Eos # (Auto) 0.3 (0.0-0.7) 10^3/uL Baso # (Auto) 0.0 (0.0-0.1) 10^3/uL Absolute Nucleated RBC 0.00 x10^3/uL Nucleated RBC % 0.0 /100WBC Sodium 131 L (135-145) mmol/L Potassium 4.0 (3.5-5.0) mmol/L Chloride 99 L (101-111) mmol/L Carbon Dioxide 23 (21-32) mmol/L Anion Gap 9.0 (6-13) BUN 10 (6-20) mg/dL Creatinine 0.7 (0.6-1.2) mg/dL Estimated GFR (MDRD) 138 (>89) Glucose 115 H (70-100) mg/dL Calcium 8.2 L (8.5-10.3) mg/dL Phosphorus 4.2 (2.5-4.6) mg/dL Magnesium 2.0 (1.7-2.8) mg/dL Total Bilirubin 0.7 (0.2-1.0) mg/dL AST 151 H (10-42) IU/L ALT 189 H (10-60) IU/L Alkaline Phosphatase 129 H (42-121) IU/L Total Protein 6.8 (6.7-8.2) g/dL Albumin 2.2 L (3.2-5.5) g/dL Globulin 4.6 H (2.1-4.2) g/dL Albumin/Globulin Ratio 0.5 L (1.0-2.2) Prealbumin 6 L (18-45) mg/dL Assessment/Plan - Problem List (1) Elevated WBC count Impression: This gentleman is at increased risk for aspiration. He has wide open reflux going back into his throat before the PEG was placed. Since the PEG has been placed and has been started on tube feeds, he has been set up in bed. He only gets bolus tube feeds. Nevertheless nursing reports frequent intermittent coughing. Occasionally productive of white clear phlegm, sometimes not. His white cell count has been creeping up. Lung exam is negative for pneumonia. Chest x-ray done on February 28 was negative for pneumonia. General surgery is worried that an organ may have been bruised or damage through this interventional PEG placement. CT of abdomen and pelvis was done March 01. Lung bases had dependent changes but no pneumonia. Liver and spleen were normal. Pancreas normal. Unenhanced bowel loops demonstrated normal wall thickness and caliber. No free air or fluid. PEG was present within the stomach. Mild appearance of surrounding inflammation change with punctate foci of air within the subcutaneous fat at the insertion site of the PEG. No defined fluid collection identified. No ventral hernias. Bilateral fat-containing inguinal hernias. without abx his WBC is slowly trending down. Plan: At this time there is some nonspecific inflammatory changes surrounding the PEG tube insertion site. May be that is the cause of his mildly elevated white cell count. White cell count came down to 14 today. It was 18. I have discussed with general surgery. They will see him today. Qualifiers: Leukocytosis type: unspecified Qualified Code(s): D72.829 - Elevated white blood cell count, unspecified Stable or resolved problems: (2) Cerebrovascular accident (CVA) Impression: He has plateaued. It has come down to two separate insurance companies deciding which will pay for rehab so he can move forward. We have been waiting for a few days now. Right sided weakness persists,somewhat improved in the right lower extremity, able to lift his right foot off the bed, right upper extremity still flaccid Aphasia continues but is also somewhat improved. Was able to answer a couple of questions with direct yes no answers Comprehension improved from admit but difficult to completely assess since he c an't find the words but can do yes no. He gets frustrated and gives up sometimes. Patient unable to swallow secondary to stroke NG tube was clotted and had to be removed, revealing a kink PEG tube was placed 02/24/[address] [facility] Continue PT/OT, with plans for referral to inpatient rehab. [facility] has accepted, but is pending insurance authorization Continue high-dose statin Continue aspirin Started Plavix 02/25 Continue blood pressure control D/C cleared when insurance accepts transfer to [facility] (3) Aphasia Assessment/Plan: Stable, see above (4) Hypertension Assessment/Plan: Slightly elevated, increased metoprolol tartrate from 25 to 50 mg BID (5) Atrial fibrillation Qualifiers: Atrial fibrillation type: longstanding persistent Qualified Code(s): I48.11 - Longstanding persistent atrial fibrillation Assessment/Plan: Stable, rate controlled Not anticoagulated on admission - was supposed to see neurology after last stroke to determine if this would be advisable. Given he's on asa and plavix, and recently had G tube, consider anticoag after d/c, vs ASA and Plavix alone to minimize bleeding.
[2021-03-03] MEDS ORDERED: IOVERSOL 320 100 ML VIAL IVP ONE ×3 (11:21→20:12)
[2021-03-03] MEDS ORDERED: IOVERSOL 320 50 ML VIAL ONE (11:21)
--- NOTE | 2021-03-03 13:46 | PROVIDER PROGRESS NOTE ---
Subjective - General Admit Date: 02/14/21 Procedure Date: 02/18/21 Post Op Days: 13 - Review of Systems All Other Systems: positive: Other (Unable to obtain) - Other Other Information/Narrative: To see patient regarding foul-smelling drainage from the PEG tube site. Mr. Espinoza does not express any abdominal pain. The drainage from the PEG tube site is brown and consistent with stool.The site itself is clean with the exception of the drainage.It is being frequently cleaned and managed by the nursing staff but the odor is not getting any better. Objective - Patient Data Reviewed Vital Signs: Yes Vital Signs: Vital Signs x48h Temp Pulse Resp BP BP Pulse Ox 03/03/21 08:26 36.8 C 75 18 123/70 97 03/03/21 07:38 36.9 C 75 20 123/60 96 Weight: Weight 03/01/21 03/02/21 03/03/21 23:59 23:59 23:59 Weight (kg) 141 kg 144.5 kg 140 kg Intake & Output: Intake and Output Totals x24h 03/01/21 03/02/21 03/03/21 23:59 23:59 23:59 Intake Total 4262 2690 654 Output Total 2125 1700 350 Balance 2137 990 304 - Lab Results Lab Results: 03/03/21 05:47 03/03/21 05:47 Other Lab Results: Lab Results x24hrs 03/03/21 03/03/21 Range/Units 05:47 05:47 WBC 13.0 H (4.8-10.8) x10^3/uL RBC 4.31 L (4.70-6.10) 10^6/uL Hgb 10.3 L (14.0-18.0) g/dL Hct 32.9 L (42.0-52.0) % MCV 76.3 L (80.0-94.0) fL MCH 23.9 L (27.0-31.0) pg MCHC 31.3 L (32.0-36.0) g/dL RDW 18.0 H (12.0-15.0) % Plt Count 388 (130-450) 10^3/uL MPV 9.1 (7.4-11.4) fL Neut # (Auto) 10.7 H (1.5-6.6) 10^3/uL Lymph # (Auto) 1.3 L (1.5-3.5) 10^3/uL [place] # (Auto) 0.6 (0.0-1.0) 10^3/uL Eos # (Auto) 0.3 (0.0-0.7) 10^3/uL Baso # (Auto) 0.0 (0.0-0.1) 10^3/uL Absolute Nucleated RBC 0.00 x10^3/uL Nucleated RBC % 0.0 /100WBC Sodium 131 L (135-145) mmol/L Potassium 4.0 (3.5-5.0) mmol/L Chloride 99 L (101-111) mmol/L Carbon Dioxide 23 (21-32) mmol/L Anion Gap 9.0 (6-13) BUN 10 (6-20) mg/dL Creatinine 0.7 (0.6-1.2) mg/dL Estimated GFR (MDRD) 138 (>89) Glucose 115 H (70-100) mg/dL Calcium 8.2 L (8.5-10.3) mg/dL Phosphorus 4.2 (2.5-4.6) mg/dL Magnesium 2.0 (1.7-2.8) mg/dL Total Bilirubin 0.7 (0.2-1.0) mg/dL AST 151 H (10-42) IU/L ALT 189 H (10-60) IU/L Alkaline Phosphatase 129 H (42-121) IU/L Total Protein 6.8 (6.7-8.2) g/dL Albumin 2.2 L (3.2-5.5) g/dL Globulin 4.6 H (2.1-4.2) g/dL Albumin/Globulin Ratio 0.5 L (1.0-2.2) Prealbumin 6 L (18-45) mg/dL - Current Medications Current Medications: Current Medications Generic Name Dose Route Start Last Admin Trade Name Freq PRN Reason Stop Dose Admin Acetaminophen 650 mg 02/14/21 07:43 02/27/21 20:58 Acetaminophen 325 Mg Tablet PO 650 mg Q4HR PRN Administration Pain 1 to 4 Aspirin 81 mg 02/28/21 12:16 03/03/21 08:49 Aspirin Chew 81 Mg Tablet PEG 81 mg DAILY [facility] Administration Atorvastatin Calcium 80 mg 10/11/21 12:16 03/02/21 21:27 Atorvastatin 40 Mg Tablet PEG 80 mg QPM [facility] Administration Clopidogrel Bisulfate 75 mg 02/25/21 09:00 03/03/21 08:49 Clopidogrel 75 Mg Tablet PEG 75 mg DAILY [facility] Administration Docusate Sodium 250 - 500 mg 02/25/21 09:00 03/03/21 08:49 Docusate Sodium 250 Mg Capsule PO Not Given DAILY [facility] Lisinopril 20 mg 02/28/21 12:17 03/03/21 08:49 Lisinopril 20 Mg Tablet PEG 20 mg DAILY [facility] Administration Metoprolol Tartrate 50 mg 02/28/21 12:18 03/03/21 08:49 Metoprolol Tartrate 50 Mg Tablet PEG 50 mg BID [facility] Administration Multi-Ingredient Ointment 1 applic 02/21/21 22:33 02/28/21 18:34 Zinc Oxide 20% Oint 30 Gm Tube TOP 1 applic PRN PRN Administration Skin Care Senna 8.6 - 17.2 mg 02/28/21 12:21 03/03/21 08:50 Senna 8.6 Mg Tablet PEG Not Given DAILY [facility] Sodium Chloride 10 ml 02/14/21 07:43 02/14/21 13:32 Sodium Chloride Flush 0.9% 10 Ml Syringe IVP 10 ml PRN PRN Administration NEEDED PER PROVIDER ORDERS Sodium Chloride 10 ml 02/14/21 09:00 03/03/21 08:50 Sodium Chloride Flush 0.9% 10 Ml Syringe IVP 10 ml 0100,0900,1700 [facility] Administration - Physical Exam Abdomen: positive: Nml bowel sounds, No distention. negative: Tenderness ABX Reporting Has patient been on IV antibiotics over the past 48 hours?: Yes Impression/Plan - Problem List Problem List: I am very concerned that this PEG tube has either gone through or nicked the side of the colon. It would be very very easy to do in this situation. The patient has an elevated left hemidiaphragm and a great deal of colon in the left upper quadrant P. Even under the best of circumstances, it is a very difficult PEG tube to place.I have spoken with Dr. Rodriguez from radiology and she has conferred with her interventional radiology partners. We have requested a CT with oral contrast to be given through the PEG tube so that we can examine and hopefully define the issue. Additional recommendations will follow when the study is resulted.
--- NOTE | 2021-03-03 14:19 | CT Report ---
PROCEDURE: ABDOMEN WO INDICATIONS: PEG site. Oral contrast per peg TECHNIQUE: Noncontrast 5 mm thick sections acquired from the diaphragms to the symphysis. 5 mm coronal and sagi ttal reformats were then performed. For radiation dose reduction, the following was used: automated exposure control, adjustment of mA and/or kV according to patient size. COMPARISON: CT abdomen and pelvis 03/01/2021. FINDINGS: Image quality: Fair. ABDOMEN: Lung bases: Small opacity or nodules at the right lung base, (4/), unchanged in the short-term inte rval. Heart size is enlarged. Asymmetric elevation of the left diaphragm. Solid organs: Liver and spleen are normal in size. Gallbladder is not seen. Pancreas is normal in contours. No adrenal nodules. Kidneys are normal in size, without hydronephrosis or nephrolithiasis . Peritoneum and bowel: Percutaneous gastrostomy tube is in the stomach. There are small clips in the ventral abdominal wall abdomen and trace subcutaneous gas, (3/). Overall these findings are not sig nificantly changed compared to CT 03/01/2021. There is no loculated fluid collection. No leakage of c ontrast through the tube. Contrast transits into the proximal duodenum. No small bowel obstruction. There is contrast in the le ft colon. There is contrast in the appendix which is partially visualized and not distended. Nodes and vessels: No retroperitoneal or mesenteric adenopathy by size criteria. Aorta and inferior vena cava are normal in caliber. Miscellaneous: No ventral hernias. Anasarca. PELVIS: Genitourinary: Bladder wall thickness is normal. Miscellaneous: No inguinal hernias or adenopathy. Bones: No suspicious bony lesions. Lower lumbar spine DDD. No vertebral body compression fractures. IMPRESSION: Image quality is degraded by artifact. 1. Percutaneous gastrostomy tube is in the stomach. Similar subcutaneous emphysema in the adjacent le ft abdominal wall. No loculated fluid collection or contrast leak. 2. No small bowel obstruction. Reviewed by: Ron Urbina MD on 03/03/2021 2:18 PM PDT Approved by: Ron Urbina MD on 03/03/2021 2:18 PM PDT Station ID: [id number]
--- NOTE | 2021-03-03 17:05 | CT Report ---
PROCEDURE: Abdomen/Pelvis W INDICATIONS: looking for bowel leak CONTRAST: IV CONTRAST: Isovue 300 ml: 100 PO CONTRAST: *NO PO CONTRAST TECHNIQUE: After the administration of rectal and IV contrast, 5 mm thick sections acquired from the diaphragms to the symphysis. 5 mm thick coronal and sagittal reformats were acquired. For radiation dose reduc tion, the following was used: automated exposure control, adjustment of mA and/or kV according to pa tient size. COMPARISON: CT abdomen 03/03/2021, CT abdomen pelvis 03/01/2021 FINDINGS: Image quality: Mild artifact is present. ABDOMEN: Lung bases: Lung bases are clear. Heart size is enlarged. Solid organs: Liver and spleen are normal in size and enhancement. Gallbladder is unremarkable Binu iary system is non dilated. Pancreas enhances normally. No adrenal nodules. Kidneys demonstrate no rmal size and enhancement, without hydronephrosis. Peritoneum and bowel: Bowel loops demonstrate normal wall thickness and caliber. No free fluid or a ir. PEG tube is present within the stomach. There is no contrast extravasation from within the bowel or stomach. Nodes and vessels: No retroperitoneal or mesenteric adenopathy by size criteria. Aorta and inferior vena cava are normal in size. Miscellaneous: No ventral hernias. Foci of air are again noted within the subcutaneous fat of the a nterior abdominal wall. PELVIS: Genitourinary: Bladder wall thickness is normal. Miscellaneous: Bilateral fat-containing inguinal hernias are present. Bones: No suspicious bony lesions. No vertebral body compression fractures. IMPRESSION: 1. Exam is mildly limited secondary to artifact. 2. No convincing areas of contrast extravasation from the bowel to suggest bowel leak. 3. Contrast is noted within the stomach. PEG tube is also noted within the stomach. There is no visua lized area of extravasation surrounding the stomach or adjacent bowel loops. If concern for bowel jah k persists, laparotomy may be considered. Reviewed by: Jenelle Morrissey MD on 03/03/2021 5:03 PM PDT Approved by: Jenelle Morrissey MD on 03/03/2021 5:03 PM PDT Station ID: [id number]
[2021-03-03] MEDS: INSULIN REGULAR HUMAN 300 UNIT/3 ML VIAL SUBQ SCH (18:13)
[2021-03-03] MEDS ORDERED: DIATRIZOATE MEGLU/DIATRIZO SOD 30 ML BOTTLE PO ONE (20:13)
[2021-03-03] MEDS: ATORVASTATIN 40 MG TABLET PEG SCH (22:12)
[2021-03-04] MEDS: INSULIN REGULAR HUMAN 300 UNIT/3 ML VIAL SUBQ SCH ×3 (01:36→11:46)
[2021-03-04] MEDS: SODIUM CHLORIDE FLUSH 0.9% 10 ML SYRINGE IVP SCH ×2 (01:36→10:37)
[2021-03-04 05:38] LABS: BASOPHILS # (AUTO) 0.1 10^3/uL (0.0-0.1); BASOPHILS % (AUTO) 0.5 %; EOSINOPHILS # (AUTO) 0.3 10^3/uL (0.0-0.7); EOSINOPHILS % (AUTO) 2.4 %; HCT - HEMATOCRIT 33.5 % (42.0-52.0); HGB - HEMOGLOBIN 10.5 g/dL (14.0-18.0); LYMPHOCYTES # (AUTO) 1.2 10^3/uL (1.5-3.5); LYMPHOCYTES % (AUTO) 11.1 %; MEAN CORPUSCULAR HEMOGLOBIN 24.2 pg (27.0-31.0); MEAN CORPUSCULAR HGB CONC 31.3 g/dL (32.0-36.0); MEAN CORPUSCULAR VOLUME 77.4 fL (80.0-94.0); MEAN PLATELET VOLUME 9.1 fL (7.4-11.4); MONOCYTES # (AUTO) 0.7 10^3/uL (0.0-1.0); MONOCYTES % (AUTO) 7.2 %; NEUTROPHILS # (AUTO) 8.1 10^3/uL (1.5-6.6); NEUTROPHILS % (AUTO) 78.5 %; PLT - PLATELET COUNT 418 10^3/uL (130-450); RED BLOOD COUNT 4.33 10^6/uL (4.70-6.10); RED CELL DISTRIBUTION WIDTH 17.7 % (12.0-15.0); WHITE BLOOD COUNT 10.3 x10^3/uL (4.8-10.8)
[2021-03-04 05:45] LABS: CALCIUM 8.3 mg/dL (8.5-10.3); CREATININE 0.8 mg/dL (0.6-1.2); POTASSIUM 4.1 mmol/L (3.5-5.0)
[2021-03-04] MEDS: SENNA 8.6 MG TABLET PEG SCH (10:21)
[2021-03-04] MEDS: ZINC OXIDE 20% OINT 30 GM TUBE TOP PRN (10:48)
[2021-03-04] MEDS: DOCUSATE SODIUM 250 MG CAPSULE PO SCH (10:48)
[2021-03-04] MEDS ORDERED: ASPIRIN 300 MG SUPP PR SCH (11:00)
--- NOTE | 2021-03-04 11:28 | PROVIDER PROGRESS NOTE ---
Subjective - Prog Note Date Prog Note Date: 03/04/21 - Subjective Pt reports feeling: Improved (improved mobility. no abdominal complaints) Objective - Vital Signs/Intake & Output Reviewed Vital Signs: Yes Vital Signs: Vital Signs x48h Temp Pulse Resp BP Pulse Ox 03/04/21 08:01 36.7 C 90 20 126/67 96 Intake & Output: Intake & Output 03/01/21 03/02/21 03/03/21 03/04/21 23:59 23:59 23:59 23:59 Intake Total 4262 2690 1188 Output Total 2125 1700 850 675 Balance 7 990 338 -405 - Objective General Appearance: positive: No acute distress Eyes Bilateral: positive: PERRL, EOMI Respiratory: positive: No respiratory distress Abdomen: positive: No distention, Other (g tube site with surrounding thin brown drainage most consistent with stool. left lateral of the g tube 6 cm hard indurated abdominal wall inflammation with 6 cm stable cellulitis which has been marked out no peritoneal signs) - Lab Results Fish Bones: 03/04/21 05:22 03/04/21 05:22 Other Labs: Lab Results x24hrs 03/04/21 03/04/21 03/04/21 Range/Units 11:06 05:57 05:22 WBC (4.8-10.8) x10^3/uL RBC (4.70-6.10) 10^6/uL Hgb (14.0-18.0) g/dL Hct (42.0-52.0) % MCV (80.0-94.0) fL MCH (27.0-31.0) pg MCHC (32.0-36.0) g/dL RDW (12.0-15.0) % Plt Count (130-450) 10^3/uL MPV (7.4-11.4) fL Neut # (Auto) (1.5-6.6) 10^3/uL Lymph # (Auto) (1.5-3.5) 10^3/uL [place] # (Auto) (0.0-1.0) 10^3/uL Eos # (Auto) (0.0-0.7) 10^3/uL Baso # (Auto) (0.0-0.1) 10^3/uL Absolute Nucleated RBC x10^3/uL Nucleated RBC % /100WBC Sodium 133 L (135-145) mmol/L Potassium 4.1 (3.5-5.0) mmol/L Chloride 98 L (101-111) mmol/L Carbon Dioxide 25 (21-32) mmol/L Anion Gap 10.0 (6-13) BUN 11 (6-20) mg/dL Creatinine 0.8 (0.6-1.2) mg/dL Estimated GFR (MDRD) 118 (>89) Glucose 103 H (70-100) mg/dL POC Whole Bld Glucose 88 99 (70 - 100) mg/dL Calcium 8.3 L (8.5-10.3) mg/dL 03/04/21 03/04/21 03/03/21 Range/Units 05:22 00:11 18:07 WBC 10.3 (4.8-10.8) x10^3/uL RBC 4.33 L (4.70-6.10) 10^6/uL Hgb 10.5 L (14.0-18.0) g/dL Hct 33.5 L (42.0-52.0) % MCV 77.4 L (80.0-94.0) fL MCH 24.2 L (27.0-31.0) pg MCHC 31.3 L (32.0-36.0) g/dL RDW 17.7 H (12.0-15.0) % Plt Count 418 (130-450) 10^3/uL MPV 9.1 (7.4-11.4) fL Neut # (Auto) 8.1 H (1.5-6.6) 10^3/uL Lymph # (Auto) 1.2 L (1.5-3.5) 10^3/uL [place] # (Auto) 0.7 (0.0-1.0) 10^3/uL Eos # (Auto) 0.3 (0.0-0.7) 10^3/uL Baso # (Auto) 0.1 (0.0-0.1) 10^3/uL Absolute Nucleated RBC 0.00 x10^3/uL Nucleated RBC % 0.0 /100WBC Sodium (135-145) mmol/L Potassium (3.5-5.0) mmol/L Chloride (101-111) mmol/L Carbon Dioxide (21-32) mmol/L Anion Gap (6-13) BUN (6-20) mg/dL Creatinine (0.6-1.2) mg/dL Estimated GFR (MDRD) (>89) Glucose (70-100) mg/dL POC Whole Bld Glucose 93 103 H (70 - 100) mg/dL Calcium (8.5-10.3) mg/dL - Diagnostic Imaging Diagnostic Imaging Results: positive: Read independently (contrast ct with contrast through the g tube shows contrast in the stomach and left colon without contrast in the small bowel. in addition by report contrast was placed shortly prior to the ct. colon is tightly adjacent to the stomach. this is all concerning for colon injury) Assessment/Plan - Problem List (1) Cerebrovascular accident (CVA) Impression: clinically he has injury to his colon with stool around the g tube site and a progressive inflammatory mass left lateral of the g tube. he currently is stable with a benign abdomen. I do not believe he should go to rehab or a snf in his current condition. his abdominal exam and condition may deteriorate. potentially he may need exploratory laparoscopy, revision g tube and colostomy if he does indeed have a colon injury. He is not a candidate for those procedures here. I recommend he be transferred to a facility which can offer a higher level of care for treatment of his abdominal wall inflammation due to possible colon injury due to g tube placement.
[2021-03-04] MEDS: CLOPIDOGREL 75 MG TABLET PEG SCH (13:15)
[2021-03-04] MEDS: METOPROLOL TARTRATE 50 MG TABLET PEG SCH (13:16)
[2021-03-04] MEDS: lisinopriL 20 MG TABLET PEG SCH (13:16)
--- NOTE | 2021-03-04 14:48 | DISCHARGE SUMMARY ---
"Discharge Summary Admit Date: 02/14/21 Discharge Date: 03/04/21 Discharging Provider: Sugey Hernandez MD Primary Care Provider: Radames Viramontes MD Code Status: Attempt Resuscitation Condition at Discharge: Stable Discharge Disposition: 02 Transfer Acute Care Hosp Discharge Facility Name: [facility]: Dr. Alberto Rubio, Dr. Chelly Rubio - DIAGNOSES Discharge Diagnoses with Status of Each Condition: 1. Multiple embolic strokes: Multiple left middle cerebral artery, left cerebellar hemisphere, lacunar infarct right andrea radiata 2 chronic atrial fibrillation 3. Hypertension 4. Right hemiplegia, aphasia, dysphagia 5. PEG status 6. At risk for aspiration 7. Morbid obesity 8. Leukocytosis 9. 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 It is unclear how long he had been down. He was noted to have a right-sided facial droop and right-sided weakness. In the ED work-up included a CT and CT angio of the head and neck which showed Left fronto-parietal temporal low-attenuation focus highly suggestive of acute/subacute ischemia. MRI of the brain was recommended for further evaluation. At bedside the patient is awake but not oriented to place, time or reason. He is unable to follow commands. Is unclear if he is able to comprehend instructions given. He seems to have a right sided neglect. After the CVA in April 2020 it appear he had not followed up with a PCP. It is unclear if he has been on eliquis, metoprolol or atorvastatin He is being admitted for further work up and treatment (Dehotu,Niba F) - Past Medical History Cardiovascular: reports: Hypertension, Atrial fibrillation, Arrhythmia Respiratory: reports: None Neuro: reports: CVA (in 2019) Endocrine/Autoimmune: reports: None GI: reports: None : reports: None Psych: reports: None Musculoskeletal: reports: None Derm: reports: None - CONSULTS | PROCEDURES Procedures: 1. Head CT February 14 with low attenuation within the left frontotemporal and parietal lobes. Chronic microvascular ischemia. 2. Head and neck CT angiogram was low frontal parietal temporal low-attenuation focus suggestive of ischemia. Marked diminutive appearance of left M3 segment of the middle cerebral artery suggestive of occlusion. No areas of hemodynamically significant stenosis, vascular occlusion or aneurysmal dilation within the neck vasculature. 3. MRI of the brain with multiple left middle cerebral artery subacute infarcts. Small subacute left cerebellar hemispheric infarct. Subacute lacunar infarct right andrea radiata. Concern for proximal embolic source. 4. Echocardiogram with mild concentric left ventricular hypertrophy. Ejection fraction 60 to 65%. Right ventricle systolic function normal. Dilated atria. Mild secondary mitral regurg. Mild tricuspid regurg. Mildly abnormal right heart pressures. RVSP at rest [address] Upper extremity [address] with no right shoulder fracture identified. Chronic and degenerative changes. 6. Multiple chest x-rays done due to suspected aspiration that was witnessed. No chest x-ray with aspiration pneumonia. 7. Abdomen pelvis CT March 01 for suspected enterotomy had PEG tube noted in the stomach. Subcutaneous fat inflammatory changes and areas is noted in the insertion tract. No abscess collection. A repeat CT March 03 with contrast per the PEG has the percutaneous gastrostomy tube in the stomach. No significant change when compared to the CT in March 01. Contrast transit into the proximal duodenum. No small bowel obstruction. There is contrast in the left colon. Anasarca. A third abdomen pelvis CT done March 03 looking for bowel leak had no convincing areas of contrast extravasation from the bowel to suggest leak. Contrast is noted within the stomach. PEG is in the stomach. If there is continued concern for bowel leak, laparotomy should be considered. The CTs, liver appears normal. 8. PEG tube insertion via interventional radiology at [facility] February 24. Patient was sent there and brought back. - HOSPITAL COURSE Hospital Course: The patient was admitted as an embolic stroke patient with dense right hemiple erick and severe dysphagia and aphasia. He was initially encephalopathic. Gradually woke up over time. He had never establish himself with a primary care provider to be on anticoagulation and rate control for his atrial fibrillation. He had persistent dense flaccidity of the right arm, and is able to move his right leg. He was noted to have severe aspiration with any attempts at swallowing anything. And as such she was felt that he would need nutrition via a PEG. We had already contacted an inpatient rehab facility. They were fairly adamant that they would not take him unless we had a PEG already in place when he was transferred. As such we contacted our local surgeons. They felt that this patient was to much of a risk to do a PEG on because of his obesity, obstructive sleep apnea habitus. We contacted [facility] interventional radiology and they placed a PEG on February 24. His comprehension is steadily improved. He can answer yes/no questions. Can move his right leg a little bit. And will spontaneously move his left body. Treatment for his strokes were high-dose statin, aspirin, Plavix and blood pressure control. He should be considered for formal anticoagulation once his risk of hemorrhagic bleed has passed. Aspirin and Plavix should be stopped at that time. We were awaiting placement authorization from the insurance company when the patient had an elevated white cell count to 18,000. This was in February 27. We checked a chest x-ray, urinalysis, did an abdominal exam. No source of infection seen in message we opted not to start antibiotics. He then began h aving a foul-smelling drainage from his PEG tube. It smells of stool. General surgery consult feels that the patient may have the PEG either in the wrong place and what we are smelling is stool. Multiple studies were done to try and prove that but we were unsuccessful. Our surgeon spoke to [facility] surgery and Dr. Alberto Rubio is agreed to accept the patient. However he would like hospitalist service to admit and he will consult. I then spoke to Dr. Ag Rubio who accepted the patient in transfer. White cell count at discharge is 10.3. He does have liver enzymes that are rising. On admission AST was 77. Peaked at 157 on the . Back to 151 on March 03. ALT was normal on admission at 26 and 189 on admission. Total bili is 0.8. Glycosylated hemoglobin 5.5%. Triglycerides 55. Cholesterol 137. LDL 61. VLDL 11. HDL 65. TSH 1.03 on February 15. The patient is an exceedingly pleasant 65-year-old male. 6 foot tall and weighs 139.5 kg . He will greet with a smile every time he walk in the room and use his left arm to reach out to shake her hand. He is unable to be verbal with use of his words. But he nod his head to say yes or shake his head to say no. At times he struggles with frustration in trying to get words out that he cannot. He has a right facial droop. Still significant dysphagia. Right arm is flaccid. Right leg can be moved slightly off the bed. Tube feedings have been stopped via the PEG but the PEG is still in place. There is some slight induration and warmth around the PEG insertion site but there is no crepitance. No redness. No heat. Greater than 30 minutes was spent coordinating discharge. The case was discussed with him and his sister Joselin. Both are understanding of the transfer plan. The goal is still to get him to inpatient rehab. - ALLERGIES Allergies/Adverse Reactions: Allergies Allergy/AdvReac Type Severity Reaction Status Date / Time No Known Drug Allergies Allergy Verified 07/02/19 01:43 - MEDICATIONS Home Medications: Ambulatory Orders Medication Instructions Recorded Confirmed Aspirin 325 mg PO DAILY #30 tablet 07/03/19 02/14/21 Metoprolol Succinate [Toprol Xl] 12.5 mg PO DAILY #15 tablet 07/03/19 02/14/21 - LABS Result Diagrams: 03/04/21 05:22 03/04/21 05:22"
[2021-03-04 16:32] VITALS: BP 126/76
--- NOTE | 2021-03-04 16:49 | Discharge Plan ---
Discharge Plan Problem Reviewed?: Yes Disposition: 02 Transfer Acute Care Hosp Condition: Stable No Smoking: If you smoke, Please STOP! Call for help.
== END 2021-03-04 17:04 | disposition short-term general hospital (02) | DRG 65 ==
LOC: EDUNIT# → ED 05:55 → MS2 07:43
PROVIDERS: ADMIT Internal Medicine; ATTEND Specialist
PROC: 0DJ08ZZ Inspection of Upper Intestinal Tract, Via Natural or Artificial Opening Endoscopic (ICD-10-PCS; 2021-02-18)
PROC: 0DH63UZ Insertion of Feeding Device into Stomach, Percutaneous Approach (ICD-10-PCS; principal; 2021-02-24)
PROC: BD12YZZ Fluoroscopy of Stomach using Other Contrast (ICD-10-PCS; 2021-02-24)
DX: I63.412 Cerebral infarction due to embolism of left middle cerebral artery (principal); G81.91 Hemiplegia, unspecified affecting right dominant side; I48.11 Longstanding persistent atrial fibrillation; Z68.41 Body mass index [BMI] 40.0-44.9, adult; G93.49 Other encephalopathy; K94.22 Gastrostomy infection; L03.311 Cellulitis of abdominal wall; K91.71 Accidental puncture and laceration of a digestive system organ or structure during a digestive system procedure; K94.29 Other complications of gastrostomy; R47.01 Aphasia; R13.10 Dysphagia, unspecified; I63.81 Other cerebral infarction due to occlusion or stenosis of small artery; I63.89 Other cerebral infarction; I69.920 Aphasia following unspecified cerebrovascular disease; E66.01 Morbid (severe) obesity due to excess calories; I10 Essential (primary) hypertension; R29.715 NIHSS score 15; Y83.3 Surgical operation with formation of external stoma as the cause of abnormal reaction of the patient, or of later complication, without mention of misadventure at the time of the procedure; G47.33 Obstructive sleep apnea (adult) (pediatric); I08.1 Rheumatic disorders of both mitral and tricuspid valves; Z20.822 Contact with and (suspected) exposure to COVID-19; Z91.19 Patient's noncompliance with other medical treatment and regimen; Z79.82 Long term (current) use of aspirin; Z79.899 Other long term (current) drug therapy
CPT/HCPCS: 0202U; 36415; 70450; 70496; 70498; 70551; 71045; 73200; 74150; 74176; 74177; 80048; 80053; 80061; 80320; 82728; 83036; 83540; 83690; 83735; 84100; 84134; 84443; 84466; 85025; 85610; 85651; 85730; 87635; 92526; 92610; 93005; 93306; 96360; 97110; 97112; 97163; 97166; 97530; 99285; A9270; J1815; J7120; Q9963; Q9967; 83721